=== PATIENT | female | born 1985 | race Caucasian/White ===

== ENCOUNTER 2018-10-26 10:47 | Inpatient (IN) | payer BC ==
[~2018-10-26] VITALS: Ht 157.5 cm; Wt 99.9 kg
[2018-10-26] MEDS ORDERED: PREN-93 PO (11:03)
[2018-10-26 11:04] VITALS: Ht 157.5 cm; Wt 99.9 kg
[2018-10-26] MEDS ORDERED: CALC600T24 PO (11:04)
[2018-10-26 11:05] VITALS: BP 115/57; PULSE 86; RESP 18
--- NOTE | 2018-10-26 11:25 | TRIAGE ---
OB Triage Datetime Report Generated by CPN: 10/26/2018 11:25 Datetime: 10/26/2018 11:01 Assessment Type: Triage Maternal Assessment Level of Consciousness: Fully Conscious DTR's/Clonus: DTRs 2+; No Clonus Headache: Denies Blurred Vision: No Respiratory Effort: Unlabored; Regular Rhythm; Equal Expansion Breath Sounds, Left: Clear and Equal Breath Sounds, Right: Clear and Equal Nausea/Vomiting: Denies RUQ Epigastric Pain: Denies Lower Extremities Edema: None Degree: None Upper Extremities Edema: None Degree: None Facial Edema: None Fall Risk Assessment History of Falling: (0) No Secondary Diagnosis: (0) No Ambulatory Aid: (0) Bedrest/Nurse Assist IV Therapy: (0) No Gait: (0) Normal/Bedrest/Immobile Mental Status: (0) Oriented to Own Ability Fall Score: 0 Fall Risk Score Definition: No Risk: No action required Datetime: 10/26/2018 10:59 Time of Arrival: 10/26/2018 10:42 EGA: 27.2 Arrived By: Ambulatory Arrived From: Home Chief Complaint: pt HERE C/O UC'S SINCE 0600 Movement: Present Contractions: Irregular Rupture of Membranes: Denies Vaginal Bleeding: None Vaginal Discharge: Denies Recent Sexual Intercouse: Denies Abdominal Trauma: Not Applicable Patient Complaints: Contractions; Cramping; Back Pain Time Provider Notified: 10/26/2018 11:23 Provider Notified: SALCEDA Initial Plan: EFM Datetime: 10/26/2018 10:57 Labor Evaluation Monitor Mode: External Heart Rate Monitor Mode: External US
[2018-10-26] MEDS: TERBUTALINE 1 MG/ML INJ SC PRN ×2 (11:46→13:01)
[2018-10-26] MEDS ORDERED: ACETAMINOPHEN 325 MG TAB PO PRN (12:00)
[2018-10-26] MEDS: LACTATED RINGER'S 1,000 ML IV SCH ×2 (14:07→14:09)
[2018-10-26] MEDS: DEXAMETHASONE 4 MG/ML 5 ML INJ IM SCH (14:22)
[2018-10-26] MEDS ORDERED: MAGNESIUM SULFATE 4 GM/100 ML 100 ML IVPB ONE (15:30)
[2018-10-26] MEDS: MAGNESIUM SULFATE 20 GM/500 ML 500 ML IV SCH (15:49)
[2018-10-26 19:49] VITALS: BP 114/65; RESP 18
[2018-10-27] MEDS: LACTATED RINGER'S 1,000 ML IV SCH ×2 (00:10→12:11)
[2018-10-27] MEDS: MAGNESIUM SULFATE 20 GM/500 ML 500 ML IV SCH ×2 (00:54→10:54)
[2018-10-27] MEDS ORDERED: SALINE 0.65% 45 ML NAS SPRAY NASAL PRN (01:30)
[2018-10-27] MEDS: DEXAMETHASONE 4 MG/ML 5 ML INJ IM SCH ×2 (01:58→14:14)
[2018-10-27] MEDS: AL HYDROX/MG HYDROX/SIMETH 30 ML CUP PO PRN (08:47)
[2018-10-27] MEDS: NIFEdipine (XL) 30 MG TAB PO SCH (19:35)
[2018-10-28] MEDS: DEXAMETHASONE 4 MG/ML 5 ML INJ IM SCH (02:00)
--- NOTE | 2018-10-28 07:03 | HP ---
DATE OF ADMISSION: 10/26/2018 HISTORY OF PRESENT ILLNESS: This is a 33-year-old lady, 5, para 4, with 2 spontaneous abortions. Her EDC by early ultrasound is 01/23/2019. That makes her 27 and 3/7 weeks on admission. She was admitted because of lower abdominal pains and low back pains. This patient is known to have a twin . She has been followed by the perinatologist, Dr. Magali Barr, diamniotic- dichorionic twins. PAST PERSONAL HISTORY: No history of TB, asthma. ALLERGIES: NO ALLERGIES. SOCIAL HISTORY: Patient does not smoke. She does not drink. MEDICATIONS: She does not take any drugs except her iron and vitamins. GYNECOLOGIC HISTORY: She had menarche at the age of 10, every 28 days interval, 3 to 4 days duration, and moderate in amount. FAMILY HISTORY: Mother has diabetes. OBSTETRICAL HISTORY: She is 5, para 4 with one set of twins. Her first delivery was in 2001. Normal delivery, second delivery in 2002, normal delivery. She had a set of twins in 2009 at 36 weeks. Baby weighed 5 pounds, both of them. She has 2 spontaneous abortions, 2016 at 16 weeks, 2017 at 8 weeks. REVIEW OF SYSTEMS: CARDIOVASCULAR: No chest pains. RESPIRATORY: No cough. GASTROINTESTINAL: No diarrhea, no vomiting. GENITOURINARY: No dysuria. PHYSICAL EXAMINATION: GENERAL: Reveals a conscious, coherent lady, in no acute distress. VITAL SIGNS: Her blood pressure 120/70, pulse rate 80 per minute, respirations 16 per minute. BREASTS, HEART AND LUNGS: Within normal limits. ABDOMEN: Soft, fundic height 30 cm. heart tones on both babies were normal. PELVIC: Deferred. EXTREMITIES: No pedal edema. ADMITTING DIAGNOSIS: A 27 and 3/7 weeks intrauterine with labor and twin gestation. Patient was planned to be observed in the hospital. She was planned to be given terbutaline and with contractions, with start on magnesium sulfate, and to be given dexamethasone. The plans were explained to the patient, and she understood everything totally. The risks, benefits, and alternatives were discussed with her as well. Dictated By: MORENITA DARDEN/NTS Conf#: [id number] DID#: [id number] MTDD
--- NOTE | 2018-10-28 07:07 | PN ---
DATE: 10/27/2018 SUBJECTIVE: The patient feels good, with no contractions. She had received 2 doses of terbutaline a nd she had completed a 24-hour of magnesium sulfate and she had received dexamethasone x3 doses and 4 th dose will be at 2 a.m. on 10/28/2018. Dr. Hoang was consulted and said she will come and see the patient today and so she will be kept in the hospital. OBJECTIVE: VITAL SIGNS: She is afebrile. Vital signs stable. ABDOMEN: Soft, no tenderness noted. heart tones for both babies were normal. No vaginal blee ding. EXTREMITIES: No calf tenderness. ASSESSMENT: 27 and 4/7 weeks intrauterine with twin gestation resulting labor. PLAN: Stay in the hospital until tomorrow until Dr. Hoang will see her. She will be started on Proc ardia-XL 30 mg daily. Dictated By: MORENITA CAIN MD NS/NTS Conf#: [id number] DID#: [id number] CC: MORENITA CAIN MD;*End*
--- NOTE | 2018-10-28 07:09 | PN ---
DATE: 10/28/2018 SUBJECTIVE: The patient feels good. No complaints, no contractions. She finished her last dose of dexamethasone, and magnesium sulfate had been stopped since last night, and no more contractions. OBJECTIVE VITAL SIGNS: She is afebrile. Vital signs stable. ABDOMEN: Soft. No tenderness noted. heart tones normal for both babies. EXTREMITIES: No tenderness, no vaginal bleeding. ASSESSMENT: 1. A 27 and 5/7 weeks intrauterine , twins. 2. Resolved labor. PLAN: She will go home today after being seen by Dr. Hoang. The plans were explained to the patient , and she understood everything totally. The risks, benefits, and alternatives were discussed with er as well. Dictated By: MORENITA CAIN MD NS/NTS Conf#: [id number] DID#: [id number] CC: MORENITA CAIN MD;*EndCC*
[2018-10-28] MEDS: NIFEdipine (XL) 30 MG TAB PO SCH (08:46)
[2018-10-28] MEDS: AL HYDROX/MG HYDROX/SIMETH 30 ML CUP PO PRN (10:13)
--- NOTE | 2018-10-29 00:49 | CONS ---
DATE OF ADMISSION: 10/26/2018 DATE OF CONSULTATION: 10/28/2018 HISTORY OF PRESENT ILLNESS: The patient is a 33-year-old at 27 weeks and 3 days, presented 2 days ag o with complaint of abdominal pain. She was placed on magnesium sulfate, given dexamethasone. Magne sium sulfate was stopped by her primary yesterday and was placed on Procardia XL 30 mg. She is curre ntly per report from the nurse without symptoms. Her cervical length was 3.7 cm yesterday. heart tones are reassuring. Contractions are none. ASSESSMENT: Twin intrauterine at gestational age stated above with contracti ons, status post magnesium sulfate and dexamethasone, currently on Procardia without any contractions currently. RECOMMENDATIONS: The patient can be discharged home tomorrow on 10/29/2018 if there is no evidence o f contraction and she is comfortable. We can continue her on Procardia XL as long as the blood press ures allow and please schedule with perinatology for cervical length and assessment in 1 to 2 weeks. Dictated By: NONI BREWER MD ST/NTS Conf#: [id number] DID#: [id number] CC: MORENITA CAIN MD;*EndCC*
[2018-10-29] MEDS: AL HYDROX/MG HYDROX/SIMETH 30 ML CUP PO PRN ×2 (07:33→16:17)
[2018-10-29] MEDS: NIFEdipine (XL) 30 MG TAB PO SCH (08:20)
--- NOTE | 2018-10-30 05:08 | PN ---
DATE: 10/29/2018 SUBJECTIVE: The patient feels good. No contractions. OBJECTIVE: VITAL SIGNS: She is afebrile. Vital signs stable. ABDOMEN: Soft. No tenderness noted. No contractions, no vaginal bleeding. EXTREMITIES: No calf tenderness. ASSESSMENT: Resolved labor. PLAN: Home today as suggested by Dr. Hoang to come back to her clinic for followup. Instructions gi stas to the patient. Dictated By: MORENITA DARDEN/EDIS Conf#: [id number] DID#: [id number]
--- NOTE | 2018-11-02 17:03 | DS ---
DATE OF ADMISSION: 10/26/2018 DATE OF DISCHARGE: 10/29/2018 This is a 33-year-old lady, 5, para 4, with 2 spontaneous abortions. Her EDC is 01/23/2019, at 27 and 3/7 weeks, admitted because of lower abdominal pains and low back pain. HISTORY OF PRESENT ILLNESS: See dictated history and physical. PHYSICAL EXAMINATION: See dictated history and physical. ADMITTING DIAGNOSIS: A 27-5/7 week intrauterine with labor and twin gestation. HOSPITAL COURSE: The patient was observed in the hospital. She was given terbutaline with magnesium sulfate and was given dexamethasone. She did have good hospital course. The pain had disappeared o n the third day of admission, so she was discharged home on the third day of admission on general t and activity was restricted. She was counseled. She was instructed. She was told to keep appoint ment with the perinatologist. She was discharged home in good and stable condition. FINAL DIAGNOSES: A 5/7 weeks intrauterine twin . I addressed of labor. She is 27 and 5/7 week intrauterine , twins, labor, resolved. Dictated By: MORENITA DARDEN/NTS Conf#: [id number] DID#: [id number]
== END 2018-10-29 17:10 | disposition home or self-care (01) | DRG 833 ==
LOC: OBT 10:47 → L-D 10:49 → OBT 11:22 → L-D 12:38 → PP1 10-27 17:20
PROVIDERS: ADMIT Obstetrics & Gynecology; ATTEND Obstetrics & Gynecology
DX: O60.02 Preterm labor without delivery, second trimester (principal); Z3A.27 27 weeks gestation of pregnancy; O30.002 Twin pregnancy, unspecified number of placenta and unspecified number of amniotic sacs, second trimester
CPT/HCPCS: 76815; 76817; 76818; 80053; 81001; 81003; 83735; 85025; G0463; J1100; J3105; J3475; J7120

== ENCOUNTER 2018-11-18 22:36 | Inpatient (IN) | payer BC, OTHER ==
[~2018-11-18] VITALS: Ht 157.5 cm; Wt 102.2 kg
[~2018-11-18 22:36] MED LIST: CALC600T24 PO; PREN-93 PO
[2018-11-18] MEDS ORDERED: NIFE30TA2 PO (22:58)
[2018-11-18 23:26] VITALS: BP 106/55; PULSE 90; RESP 16
[2018-11-19] MEDS ORDERED: MAGNESIUM SULFATE 4 GM/100 ML 100 ML IV ONE (02:00)
[2018-11-19] MEDS ORDERED: ONDANSETRON 4 MG INJ IV PRN (02:00)
[2018-11-19] MEDS ORDERED: ACETAMINOPHEN 325 MG TAB PO PRN (02:00)
[2018-11-19] MEDS: LACTATED RINGER'S 1,000 ML IV SCH ×3 (02:03→17:42)
[2018-11-19] MEDS: MAGNESIUM SULFATE 20 GM/500 ML 500 ML IV SCH ×3 (03:04→22:47)
--- NOTE | 2018-11-19 03:41 | TRIAGE ---
OB Triage Datetime Report Generated by CPN: 11/19/2018 03:40 Datetime: 11/19/2018 02:32 Monitor Mode: External Monitor Mode: External US Datetime: 11/18/2018 23:51 Time of Arrival: 11/18/2018 22:30 EGA: 30.4 Arrived By: Wheelchair Arrived From: Home Chief Complaint: w/ hx c/ for twins at 35 wks and present twin gestation c/o irreg u c Movement: Present Contractions: Irregular Time Contractions Began: 11/18/2018 19:00 Contractions: q15 Rupture of Membranes: Denies Vaginal Bleeding: None Vaginal Discharge: Denies Recent Sexual Intercouse: Denies Abdominal Trauma: Not Applicable Patient Complaints: Cramping Time Provider Notified: 11/18/2018 23:25 Provider Notified: Dr Woodward Initial Plan: EFM,UA,CVL,EFW,KANDICE,PO HYDRATION Datetime: 11/18/2018 23:25 Stage of : OB Triage Monitor Mode: External Quality: Mild Pattern: Normal: <= 5 Contractions in 10 Minutes Resting Tone [place]: Relaxed Datetime: 11/18/2018 23:07 Stage of : OB Triage Monitor Mode: External Duration (sec)2399: 10 Quality: Mild Pattern: Normal: <= 5 Contractions in 10 Minutes Resting Tone [place]: Relaxed Heart Rate FHR Baseline Rate: 145 Monitor Mode: External US FHR Baseline Changes: No Baseline Change Variability: Moderate 6-25 bpm Accelerations: 15X15 Decelerations: None Category: Category I Datetime: 11/18/2018 22:45 Monitor Mode: External Resting [place]: Relaxed Datetime: 11/18/2018 22:43 Stage of : OB Triage Respiratory Effort: Unlabored Heart Rate FHR Baseline Rate: 140 Monitor Mode: External US Pain Assessment Pain Scale: 4 Pain Presence: Intermittent Pain Type: Cramping Pain Location: Abdomen Datetime: 10/29/2018 14:00 Stage of : Antepartum Maternal Assessment Level of Consciousness: Fully Conscious Headache: Denies Nausea/Vomiting: Denies RUQ Epigastric Pain: Denies Labor Evaluation Frequency: 0/hr Monitor Mode: External Pain Assessment Pain Scale: 0 Pain Presence: None/Denies Vaginal Bleeding: None Datetime: 10/29/2018 13:29 Stage of : Antepartum Labor Evaluation Frequency: 0/hr Monitor Mode: External Pain Presence: None/Denies Datetime: 10/29/2018 13:25 Pain Presence: None/Denies Datetime: 10/29/2018 12:58 Pain Presence: None/Denies Datetime: 10/29/2018 11:29 Stage of : Antepartum Pain Presence: None/Denies Datetime: 10/29/2018 11:00 Stage of : Antepartum Labor Evaluation Frequency: 0/hr Monitor Mode: External Pain Presence: None/Denies Datetime: 10/29/2018 10:00 Stage of : Antepartum Labor Evaluation Frequency: 0/hr Monitor Mode: External Pain Presence: None/Denies Datetime: 10/29/2018 09:00 Pain Presence: None/Denies Datetime: 10/29/2018 07:51 Heart Rate FHR Baseline Rate: 145 Monitor Mode: External US Variability: Moderate 6-25 bpm Accelerations: 15X15 Comments: blue line Datetime: 10/29/2018 07:39 Assessment Type: Ongoing Assessment Maternal Assessment Level of Consciousness: Fully Conscious Headache: Denies Blurred Vision: No Respiratory Effort: Unlabored Nausea/Vomiting: Denies RUQ Epigastric Pain: Denies Monitor Mode: External Resting [place]: Relaxed Datetime: 10/29/2018 07:27 Stage of : Antepartum Datetime: 10/29/2018 06:20 Labor Evaluation Frequency: 0 Monitor Mode: External Resting [place]: Relaxed Pain Presence: None/Denies Datetime: 10/29/2018 05:20 Labor Evaluation Frequency: 0 Monitor Mode: External Resting [place]: Relaxed Datetime: 10/29/2018 04:20 Labor Evaluation Frequency: 0 Monitor Mode: External Resting [place]: Relaxed Datetime: 10/29/2018 03:20 Labor Evaluation Frequency: 0 Monitor Mode: External Duration (sec)2399: denies Resting [place]: Relaxed Pain Presence: None/Denies Datetime: 10/29/2018 02:20 Labor Evaluation Frequency: 0 Monitor Mode: External Duration (sec)2399: denies Resting [place]: Relaxed Pain Presence: None/Denies Datetime: 10/29/2018 01:20 Labor Evaluation Frequency: 0 Monitor Mode: External Duration (sec)2399: denies Resting [place]: Relaxed Pain Presence: None/Denies Datetime: 10/29/2018 00:20 Labor Evaluation Frequency: x2 Monitor Mode: External Duration (sec)2399: 40 Quality: Mild Resting [place]: Relaxed Pain Presence: None/Denies Datetime: 10/28/2018 23:15 Labor Evaluation Frequency: 0 Monitor Mode: External Duration (sec)2399: DENIES Resting T[place]: Relaxed Pain Presence: None/Denies Datetime: 10/28/2018 22:14 Labor Evaluation Frequency: 0 Monitor Mode: External Duration (sec)2399: DENIES Resting [place]: Relaxed Heart Rate FHR Baseline Rate: 150 Monitor Mode: External US Variability: Moderate 6-25 bpm Accelerations: 15X15 Decelerations: None Comments: NST DONE APPROPRIATED FOR GA. 27 WEEKS. Pain Presence: None/Denies Datetime: 10/28/2018 21:00 Labor Evaluation Frequency: 0 Monitor Mode: External Resting [place]: Relaxed Monitor Mode: External US Comments: STEPHANI ALEC NST STARTED Datetime: 10/28/2018 20:00 Labor Evaluation Frequency: 0 Monitor Mode: External Duration (sec)2399: DENIES Resting [place]: Relaxed Pain Presence: None/Denies Datetime: 10/28/2018 19:28 Stage of : Antepartum Assessment Type: Ongoing Assessment Maternal Assessment Level of Consciousness: Fully Conscious DTR's/Clonus: DTRs 2+; No Clonus Headache: Denies Blurred Vision: No Respiratory Effort: Unlabored; Regular Rhythm; Equal Expansion Breath Sounds, Left: Clear and Equal Breath Sounds, Right: Clear and Equal Nausea/Vomiting: Denies RUQ Epigastric Pain: Denies Lower Extremities Edema: None Degree: None Upper Extremities Edema: None Degree: None Facial Edema: None Temperature Route: Oral Fall Risk Assessment History of Falling: (0) No Secondary Diagnosis: (0) No Ambulatory Aid: (0) Bedrest/Nurse Assist IV Therapy: (0) No Gait: (0) Normal/Bedrest/Immobile Mental Status: (0) Oriented to Own Ability Fall Score: 0 Fall Risk Score Definition: No Risk: No action required Pain Presence: None/Denies Datetime: 10/28/2018 19:00 Stage of : Antepartum Maternal Assessment Level of Consciousness: Fully Conscious Headache: Denies Nausea/Vomiting: Denies RUQ Epigastric Pain: Denies Labor Evaluation Frequency: 0/hr Monitor Mode: External Pain Assessment Pain Scale: 0 Pain Presence: None/Denies Vaginal Bleeding: None Datetime: 10/28/2018 18:00 Stage of : Antepartum Maternal Assessment Level of Consciousness: Fully Conscious Headache: Denies Nausea/Vomiting: Denies RUQ Epigastric Pain: Denies Labor Evaluation Frequency: 0/hr Monitor Mode: External Pain Assessment Pain Scale: 0 Pain Presence: None/Denies Vaginal Bleeding: None Datetime: 10/28/2018 17:00 Stage of : Antepartum Maternal Assessment Level of Consciousness: Fully Conscious Headache: Denies Nausea/Vomiting: Denies RUQ Epigastric Pain: Denies Labor Evaluation Frequency: 0/hr Monitor Mode: External Pain Assessment Pain Scale: 0 Pain Presence: None/Denies Vaginal Bleeding: None Datetime: 10/28/2018 16:00 Stage of : Antepartum Maternal Assessment Level of Consciousness: Fully Conscious Headache: Denies Nausea/Vomiting: Denies RUQ Epigastric Pain: Denies Labor Evaluation Frequency: 0/hr Monitor Mode: External Pain Assessment Pain Scale: 0 Pain Presence: None/Denies Vaginal Bleeding: None Datetime: 10/28/2018 15:20 Stage of : Antepartum Maternal Assessment Level of Consciousness: Fully Conscious Headache: Denies Blurred Vision: No Respiratory Effort: Unlabored Nausea/Vomiting: Denies RUQ Epigastric Pain: Denies Temperature Route: Oral Resting [place]: Relaxed Pain Presence: None/Denies Datetime: 10/28/2018 15:00 Stage of : Antepartum Maternal Assessment Level of Consciousness: Fully Conscious Headache: Denies Nausea/Vomiting: Denies RUQ Epigastric Pain: Denies Labor Evaluation Frequency: 0/hr Monitor Mode: External Pain Assessment Pain Scale: 0 Pain Presence: None/Denies Vaginal Bleeding: None Datetime: 10/28/2018 14:00 Stage of : Antepartum Maternal Assessment Level of Consciousness: Fully Conscious Headache: Denies Nausea/Vomiting: Denies RUQ Epigastric Pain: Denies Labor Evaluation Frequency: 0/hr Monitor Mode: External Pain Assessment Pain Scale: 0 Pain Presence: None/Denies Vaginal Bleeding: None Datetime: 10/28/2018 13:21 Stage of : Antepartum Labor Evaluation Frequency: 0/hr Monitor Mode: External Resting [place]: Relaxed Pain Presence: None/Denies Datetime: 10/28/2018 12:21 Pain Presence: None/Denies Datetime: 10/28/2018 12:00 Stage of : Antepartum Maternal Assessment Level of Consciousness: Fully Conscious Headache: Denies Nausea/Vomiting: Denies RUQ Epigastric Pain: Denies Labor Evaluation Frequency: 0/hr Monitor Mode: External Pain Assessment Pain Scale: 0 Pain Presence: None/Denies Vaginal Bleeding: None Datetime: 10/28/2018 11:23 Stage of : Antepartum Datetime: 10/28/2018 11:13 Labor Evaluation Frequency: 0/hr Pain Presence: None/Denies Datetime: 10/28/2018 09:57 Stage of : Antepartum Labor Evaluation Frequency: none Monitor Mode: External Resting [place]: Relaxed Pain Presence: None/Denies Pain Type: N/A Datetime: 10/28/2018 08:44 Stage of : Antepartum Maternal Assessment Level of Consciousness: Fully Conscious Headache: Denies Nausea/Vomiting: Denies RUQ Epigastric Pain: Denies Labor Evaluation Frequency: 0/hr Monitor Mode: External Resting [place]: Relaxed Heart Rate FHR Baseline Rate: 135 Monitor Mode: External US Variability: Moderate 6-25 bpm Accelerations: 15X15 Comments: blue line ega 27.4 Pain Assessment Pain Scale: 0 Vaginal Bleeding: None Datetime: 10/28/2018 08:05 Resting Tone [place]: Relaxed Pain Presence: None/Denies Datetime: 10/28/2018 07:48 Maternal Assessment Level of Consciousness: Fully Conscious Headache: Denies Blurred Vision: No Nausea/Vomiting: Denies Monitor Mode: External Resting [place]: Relaxed Monitor Mode: External US Comments: blue line lower mid. quad Datetime: 10/28/2018 07:16 Stage of : Antepartum Pain Presence: None/Denies Datetime: 10/28/2018 06:56 Labor Evaluation Frequency: NONE Monitor Mode: External Resting [place]: Relaxed Pain Presence: None/Denies Pain Type: N/A Datetime: 10/28/2018 06:00 Maternal Assessment Level of Consciousness: Fully Conscious DTR's/Clonus: DTRs 2+; No Clonus Labor Evaluation Frequency: NONE Monitor Mode: External Resting [place]: Relaxed Contraction Comments: PT DENIES FEELING ANY UC'S Comments: pt states + fm Pain Presence: None/Denies Pain Type: N/A Datetime: 10/28/2018 05:40 Stage of : Antepartum Datetime: 10/28/2018 05:00 Labor Evaluation Frequency: none Monitor Mode: External Resting [place]: Relaxed Contraction Comments: Minimal irritability noted. Datetime: 10/28/2018 04:37 Stage of : Antepartum Temperature Route: Oral Contraction Comments: PT DENEIS CRAMPING Comments: PT STATES + FM Pain Presence: None/Denies Pain Type: N/A Pain Assessment Comments: PT STATES SHE FEELS MUCH BETTER THAN SHE DID LAST NIGHT. Vaginal Exam Membrane Status: Intact Vaginal Bleeding: None Datetime: 10/28/2018 04:00 Labor Evaluation Frequency: NONE Monitor Mode: External Resting [place]: Relaxed Contraction Comments: MINIMAL UTERINE IRRITABILITY NOTED Pain Presence: None/Denies Pain Type: N/A Pain Assessment Comments: PT REMAINS ASLEEP WITH EVEN UNLABORED BREATHING. Datetime: 10/28/2018 03:00 Labor Evaluation Frequency: NONE Monitor Mode: External Resting [place]: Relaxed Pain Presence: None/Denies Pain Type: N/A Pain Assessment Comments: PT SLEEPING WITH EVEN UNLABORED BREATHING Datetime: 10/28/2018 02:00 Stage of : Antepartum Labor Evaluation Frequency: NONE Monitor Mode: External Resting [place]: Relaxed Pain Presence: None/Denies Pain Type: N/A Pain Assessment Comments: PT DENIES ANY NEEDS AT THIS TIME Datetime: 10/28/2018 01:00 Labor Evaluation Frequency: X2 Monitor Mode: External Duration (sec)2399: 50 Quality: Mild Resting [place]: Relaxed Pain Presence: None/Denies Pain Type: N/A Pain Assessment Comments: PT SLEEPING WITH EVEN UNLABORED BREATHING Datetime: 10/28/2018 00:00 Labor Evaluation Frequency: none Monitor Mode: External Resting [place]: Relaxed Pain Presence: None/Denies Pain Type: N/A Datetime: 10/27/2018 23:19 Stage of : Antepartum Temperature Route: Oral Datetime: 10/27/2018 23:00 Stage of : Antepartum Labor Evaluation Frequency: none Monitor Mode: External Resting [place]: Relaxed Pain Assessment Pain Scale: 3 Pain Presence: Constant Pain Type: Ache Pain Location: Other Pain Assessment Comments: Pt states her whole body hurts from laying in the bed so long. Datetime: 10/27/2018 22:00 Labor Evaluation Frequency: NONE Monitor Mode: External Resting [place]: Relaxed Heart Rate FHR Baseline Rate: 140 Monitor Mode: External US Variability: Moderate 6-25 bpm Accelerations: 15X15 Decelerations: None Category: Category I Pain Presence: None/Denies Pain Type: N/A Datetime: 10/27/2018 21:55 Monitor Mode: External US Comments: REMOVED. FM CHANGED TO NST Q SHIFT Datetime: 10/27/2018 21:40 Stage of : Antepartum Datetime: 10/27/2018 21:26 Monitor Mode: External US Datetime: 10/27/2018 21:15 Stage of : Antepartum Datetime: 10/27/2018 21:00 Labor Evaluation Frequency: X1 Monitor Mode: External Duration (sec)2399: 40 Quality: Mild Resting [place]: Relaxed Heart Rate FHR Baseline Rate: 135 Monitor Mode: External US Variability: Moderate 6-25 bpm Accelerations: 15X15 Decelerations: None Category: Category I Pain Presence: None/Denies Pain Type: N/A Datetime: 10/27/2018 20:03 Stage of : Antepartum Datetime: 10/27/2018 20:00 Labor Evaluation Frequency: NONE Monitor Mode: External Resting [place]: Relaxed Heart Rate FHR Baseline Rate: 135 Monitor Mode: External US Variability: Moderate 6-25 bpm Accelerations: None Decelerations: None Category: Category I Pain Presence: None/Denies Pain Type: N/A Datetime: 10/27/2018 19:35 Stage of : Antepartum Datetime: 10/27/2018 19:33 Stage of : Antepartum Assessment Type: Ongoing Assessment Maternal Assessment Level of Consciousness: Fully Conscious DTR's/Clonus: DTRs 2+; No Clonus Headache: Denies Blurred Vision: No Respiratory Effort: Unlabored; Regular Rhythm; Equal Expansion Breath Sounds, Left: Clear and Equal Breath Sounds, Right: Clear and Equal Nausea/Vomiting: Denies RUQ Epigastric Pain: Denies Lower Extremities Edema: None Degree: None Upper Extremities Edema: None Degree: None Facial Edema: None Temperature Route: Oral Fall Risk Assessment History of Falling: (0) No Secondary Diagnosis: (0) No Ambulatory Aid: (0) Bedrest/Nurse Assist IV Therapy: (0) No Gait: (0) Normal/Bedrest/Immobile Mental Status: (0) Oriented to Own Ability Fall Score: 0 Fall Risk Score Definition: No Risk: No action required Contraction Comments: PT DENIES CRAMPING Comments: PT STATES + FM Pain Presence: None/Denies Pain Type: N/A Vaginal Exam Membrane Status: Intact Vaginal Bleeding: None Datetime: 10/27/2018 18:54 Stage of : Antepartum Labor Evaluation Frequency: 0 Monitor Mode: External Resting [place]: Relaxed Heart Rate FHR Baseline Rate: 135 Monitor Mode: External US Variability: Moderate 6-25 bpm Accelerations: 10X10 Decelerations: None Category: Category I Pain Assessment Pain Scale: 0 Pain Presence: None/Denies Pain Type: N/A Vaginal Exam Membrane Status: Intact Datetime: 10/27/2018 18:30 Labor Evaluation Frequency: 0 Monitor Mode: External Resting [place]: Relaxed Heart Rate FHR Baseline Rate: 135 Monitor Mode: External US Variability: Moderate 6-25 bpm Decelerations: None Pain Assessment Pain Scale: 0 Pain Presence: None/Denies Pain Type: N/A Datetime: 10/27/2018 18:14 Assessment Type: Ongoing Assessment Maternal Assessment Level of Consciousness: Fully Conscious DTR's/Clonus: DTRs 2+; No Clonus Headache: Denies Blurred Vision: No Respiratory Effort: Unlabored; Regular Rhythm; Equal Expansion Breath Sounds, Left: Clear and Equal Breath Sounds, Right: Clear and Equal Nausea/Vomiting: Denies RUQ Epigastric Pain: Denies Facial Edema: None Fall Risk Assessment History of Falling: (0) No Secondary Diagnosis: (0) No Ambulatory Aid: (0) Bedrest/Nurse Assist Gait: (0) Normal/Bedrest/Immobile Mental Status: (0) Oriented to Own Ability Datetime: 10/27/2018 17:30 Stage of : Antepartum Datetime: 10/27/2018 17:20 Stage of : Antepartum Datetime: 10/27/2018 16:30 Labor Evaluation Frequency: x1 Monitor Mode: External Duration (sec)2399: 50 Quality: Mild Pattern: Normal: <= 5 Contractions in 10 Minutes Resting Tone [place]: Relaxed Heart Rate FHR Baseline Rate: 145 Monitor Mode: External US Variability: Moderate 6-25 bpm Accelerations: 10X10 Decelerations: None Pain Assessment Pain Scale: 0 Pain Presence: None/Denies Pain Type: N/A Pain Goal: 3 Pain Relief Measures: Comfort Measures Datetime: 10/27/2018 15:30 Labor Evaluation Frequency: 0 Monitor Mode: External Pattern: Normal: <= 5 Contractions in 10 Minutes Resting [place]: Relaxed Heart Rate FHR Baseline Rate: 140 Monitor Mode: External US Variability: Moderate 6-25 bpm Accelerations: 10X10 Decelerations: None Pain Assessment Pain Scale: 0 Pain Presence: None/Denies Pain Type: N/A Pain Goal: 3 Pain Relief Measures: Comfort Measures Datetime: 10/27/2018 15:16 Monitor Mode: External US Datetime: 10/27/2018 15:11 Monitor Mode: External Datetime: 10/27/2018 15:04 Monitor Mode: External US Datetime: 10/27/2018 14:30 Labor Evaluation Frequency: 0 Monitor Mode: External Pattern: Normal: <= 5 Contractions in 10 Minutes Resting [place]one [place]: Relaxed Heart Rate FHR Baseline Rate: 140 Monitor Mode: External US Variability: Moderate 6-25 bpm Accelerations: 10X10 Decelerations: None Pain Assessment Pain Scale: 0 Pain Presence: None/Denies Pain Type: N/A Pain Goal: 3 Pain Relief Measures: Comfort Measures Datetime: 10/27/2018 13:30 Labor Evaluation Frequency: 0 Monitor Mode: External Pattern: Normal: <= 5 Contractions in 10 Minutes Resting [place]one [place]: Relaxed Heart Rate FHR Baseline Rate: 145 Monitor Mode: External US Variability: Moderate 6-25 bpm Accelerations: 10X10 Decelerations: None Category: Category I Pain Assessment Pain Scale: 0 Pain Presence: None/Denies Pain Type: N/A Pain Goal: 3 Pain Relief Measures: Comfort Measures Datetime: 10/27/2018 12:31 Labor Evaluation Frequency: 0 Monitor Mode: External Pattern: Normal: <= 5 Contractions in 10 Minutes Resting [place]one [place]: Relaxed Heart Rate FHR Baseline Rate: 145 Monitor Mode: External US FHR Baseline Changes: No Baseline Change Variability: Moderate 6-25 bpm Accelerations: None Decelerations: None Category: Category I Pain Assessment Pain Scale: 0 Pain Presence: None/Denies Pain Type: N/A Pain Goal: 3 Pain Relief Measures: Comfort Measures Datetime: 10/27/2018 11:57 Stage of : Antepartum Datetime: 10/27/2018 11:49 Stage of : Antepartum Datetime: 10/27/2018 11:34 Labor Evaluation Frequency: X1 Monitor Mode: External Duration (sec)2399: 50 Quality: Mild Pattern: Normal: <= 5 Contractions in 10 Minutes Resting [place]one [place]: Relaxed Heart Rate FHR Baseline Rate: 145 Monitor Mode: External US Variability: Moderate 6-25 bpm Accelerations: 10X10 Decelerations: None Category: Category I Pain Assessment Pain Scale: 0 Pain Presence: None/Denies Pain Type: N/A Pain Goal: 3 Pain Relief Measures: Comfort Measures Datetime: 10/27/2018 10:32 Labor Evaluation Frequency: X1 Monitor Mode: External Duration (sec)2399: 40 Quality: Mild Pattern: Normal: <= 5 Contractions in 10 Minutes Resting [place]one [place]: Relaxed Heart Rate FHR Baseline Rate: 140 Monitor Mode: External US Variability: Moderate 6-25 bpm Accelerations: 10X10 Decelerations: None Category: Category I Pain Assessment Pain Scale: 0 Pain Presence: None/Denies Pain Type: N/A Pain Goal: 3 Pain Relief Measures: Comfort Measures Datetime: 10/27/2018 09:34 Maternal Assessment Level of Consciousness: Fully Conscious DTR's/Clonus: DTRs Absent Headache: Denies Blurred Vision: No Breath Sounds, Left: Clear and Equal Breath Sounds, Right: Clear and Equal Nausea/Vomiting: Denies RUQ Epigastric Pain: Denies Heart Rate FHR Baseline Rate: 145 Monitor Mode: External US Variability: Moderate 6-25 bpm Decelerations: None Category: Category I Pain Assessment Pain Scale: 0 Pain Presence: None/Denies Pain Type: N/A Pain Goal: 3 Datetime: 10/27/2018 08:54 Stage of : Antepartum Datetime: 10/27/2018 07:39 Stage of : Antepartum Maternal Assessment Level of Consciousness: Fully Conscious DTR's/Clonus: DTRs 1+ Headache: Denies Breath Sounds, Left: Clear and Equal Breath Sounds, Right: Clear and Equal Nausea/Vomiting: Denies RUQ Epigastric Pain: Denies Temperature Route: Oral Labor Evaluation Frequency: 0 Monitor Mode: External Pattern: Normal: <= 5 Contractions in 10 Minutes Resting [place]: Relaxed Heart Rate FHR Baseline Rate: 140 Monitor Mode: External US Variability: Moderate 6-25 bpm Accelerations: 10X10 Decelerations: None Category: Category I Pain Assessment Pain Scale: 3 Pain Presence: Intermittent Pain Type: Cramping Pain Location: Perineum Pain Goal: 1 Pain Relief Measures: Comfort Measures Datetime: 10/27/2018 07:36 Assessment Type: Ongoing Assessment Maternal Assessment Level of Consciousness: Fully Conscious DTR's/Clonus: DTRs 2+; No Clonus Headache: Denies Blurred Vision: No Respiratory Effort: Unlabored; Regular Rhythm; Equal Expansion Breath Sounds, Left: Clear and Equal Breath Sounds, Right: Clear and Equal Nausea/Vomiting: Denies RUQ Epigastric Pain: Denies Facial Edema: None Fall Risk Assessment History of Falling: (0) No Secondary Diagnosis: (0) No Ambulatory Aid: (0) Bedrest/Nurse Assist IV Therapy: (0) No Gait: (0) Normal/Bedrest/Immobile Mental Status: (0) Oriented to Own Ability Fall Score: 0 Fall Risk Score Definition: No Risk: No action required Datetime: 10/27/2018 07:29 Stage of : Antepartum Labor Evaluation Frequency: 0 Monitor Mode: External Duration (sec)2399: 0 Resting [place]: Relaxed Heart Rate FHR Baseline Rate: 135 Monitor Mode: External US FHR Baseline Changes: No Baseline Change Variability: Moderate 6-25 bpm Accelerations: 15X15 Decelerations: None Category: Category I Pain Presence: None/Denies Pain Type: N/A Vaginal Exam Membrane Status: Intact Datetime: 10/27/2018 06:12 Stage of : Antepartum Maternal Assessment Level of Consciousness: Fully Conscious Headache: Denies Blurred Vision: No Respiratory Effort: Unlabored Breath Sounds, Left: Clear and Equal Breath Sounds, Right: Clear and Equal Nausea/Vomiting: Denies RUQ Epigastric Pain: Denies Labor Evaluation Frequency: 0 Monitor Mode: Internal Duration (sec)2399: 0 Resting [place]: Relaxed Heart Rate FHR Baseline Rate: 135 Monitor Mode: External US FHR Baseline Changes: No Baseline Change Variability: Moderate 6-25 bpm Accelerations: 10X10 Decelerations: None Category: Category I Pain Presence: None/Denies Pain Type: N/A Vaginal Exam Membrane Status: Intact Datetime: 10/27/2018 04:46 Stage of : Labor Maternal Assessment Level of Consciousness: Fully Conscious Breath Sounds, Right: Clear and Equal Labor Evaluation Frequency: 0 Monitor Mode: External Duration (sec)2399: 0 Pattern: Normal: <= 5 Contractions in 10 Minutes Resting [place]: Relaxed Heart Rate FHR Baseline Rate: 135 Monitor Mode: External US FHR Baseline Changes: No Baseline Change Variability: Moderate 6-25 bpm Accelerations: 10X10 Decelerations: None Category: Category I Pain Assessment Pain Scale: 0 Pain Presence: None/Denies Pain Type: N/A Vaginal Exam Membrane Status: Intact Datetime: 10/27/2018 04:00 Stage of : Antepartum Breath Sounds, Right: Clear and Equal Labor Evaluation Frequency: 0 Monitor Mode: External Duration (sec)2399: 0 Pattern: Normal: <= 5 Contractions in 10 Minutes Resting [place]: Relaxed Heart Rate FHR Baseline Rate: 135 FHR Baseline Changes: No Baseline Change Variability: Moderate 6-25 bpm Accelerations: 10X10 Decelerations: None Category: Category I Vaginal Exam Membrane Status: Intact Datetime: 10/27/2018 03:32 Stage of : Antepartum Headache: Denies Blurred Vision: No Respiratory Effort: Unlabored Breath Sounds, Left: Clear and Equal Breath Sounds, Right: Clear and Equal Nausea/Vomiting: Denies Labor Evaluation Frequency: 0 Monitor Mode: External Duration (sec)2399: 0 Resting Tone [place]: Relaxed Heart Rate FHR Baseline Rate: 135 Monitor Mode: External US FHR Baseline Changes: No Baseline Change Variability: Moderate 6-25 bpm Accelerations: 10X10 Decelerations: None Category: Category I Pain Presence: None/Denies Pain Type: N/A Vaginal Exam Membrane Status: Intact Datetime: 10/27/2018 02:03 Stage of : Antepartum Headache: Denies Blurred Vision: No Nausea/Vomiting: Denies Labor Evaluation Frequency: 0 Monitor Mode: External Duration (sec)2399: 0 Resting Tone [place]: Relaxed Interventions: Side to Side Heart Rate FHR Baseline Rate: 135 Monitor Mode: External US FHR Baseline Changes: No Baseline Change Variability: Moderate 6-25 bpm Accelerations: 15X15 Decelerations: None Category: Category I Pain Assessment Pain Scale: 0 Pain Presence: None/Denies Pain Type: N/A Pain Relief Measures: Epidural Given Vaginal Exam Membrane Status: Intact Datetime: 10/27/2018 00:46 Stage of : Antepartum Maternal Assessment Level of Consciousness: Fully Conscious Headache: Denies Respiratory Effort: Unlabored Breath Sounds, Left: Clear and Equal Breath Sounds, Right: Clear and Equal Nausea/Vomiting: Denies RUQ Epigastric Pain: Denies Labor Evaluation Frequency: 0 Monitor Mode: External Duration (sec)2399: 0 Pattern: Normal: <= 5 Contractions in 10 Minutes Resting Tone [place]: Relaxed Heart Rate FHR Baseline Rate: 140 Monitor Mode: External US FHR Baseline Changes: No Baseline Change Variability: Moderate 6-25 bpm Accelerations: 10X10 Decelerations: None Category: Category I Pain Assessment Pain Scale: 0 Pain Presence: None/Denies Pain Type: N/A Vaginal Exam Membrane Status: Intact Datetime: 10/27/2018 00:13 Monitor Mode: External Monitor Mode: External US Datetime: 10/27/2018 00:04 Stage of : Antepartum Maternal Assessment Level of Consciousness: Fully Conscious DTR's/Clonus: DTRs 2+; No Clonus Headache: Denies Breath Sounds, Left: Clear and Equal Breath Sounds, Right: Clear and Equal Nausea/Vomiting: Denies RUQ Epigastric Pain: Denies Temperature Route: Axillary Datetime: 10/26/2018 23:09 Stage of : Antepartum Maternal Assessment Level of Consciousness: Fully Conscious Headache: Denies Blurred Vision: No Respiratory Effort: Unlabored Breath Sounds, Left: Clear and Equal Breath Sounds, Right: Clear and Equal Nausea/Vomiting: Denies RUQ Epigastric Pain: Denies Labor Evaluation Frequency: 0 Monitor Mode: External Duration (sec)2399: 0 Pattern: Normal: <= 5 Contractions in 10 Minutes Resting Tone [place]: Relaxed Heart Rate FHR Baseline Rate: 145 Monitor Mode: External US FHR Baseline Changes: No Baseline Change Variability: Moderate 6-25 bpm Accelerations: 10X10 Decelerations: None Category: Category I Pain Assessment Pain Scale: 0 Pain Presence: None/Denies Pain Type: N/A Datetime: 10/26/2018 22:18 Stage of : Antepartum Maternal Assessment Level of Consciousness: Fully Conscious DTR's/Clonus: DTRs 2+; No Clonus Headache: Denies Breath Sounds, Left: Clear and Equal Breath Sounds, Right: Clear and Equal Nausea/Vomiting: Denies RUQ Epigastric Pain: Denies Temperature Route: Axillary Labor Evaluation Frequency: 0 Monitor Mode: External Duration (sec)2399: 0 Pain Assessment Pain Scale: 0 Pain Presence: None/Denies Datetime: 10/26/2018 21:10 Stage of : Antepartum Maternal Assessment Level of Consciousness: Fully Conscious Respiratory Effort: Unlabored Breath Sounds, Left: Clear and Equal Breath Sounds, Right: Clear and Equal Labor Evaluation Frequency: 0 Monitor Mode: External Duration (sec)2399: 0 Pattern: Normal: <= 5 Contractions in 10 Minutes Resting Tone [place]: Relaxed Heart Rate FHR Baseline Rate: 140 Monitor Mode: External US FHR Baseline Changes: No Baseline Change Variability: Moderate 6-25 bpm Accelerations: 10X10 Decelerations: None Category: Category I Comments: COTTON STOCKING APPLIED TO PT ABDOMEN INSTEAD OF BELTS TO MONITOR Pain Assessment Pain Scale: 0 Pain Presence: None/Denies Pain Type: N/A Pain Goal: 2 Vaginal Exam Membrane Status: Intact Datetime: 10/26/2018 19:50 Stage of : Antepartum Maternal Assessment Level of Consciousness: Fully Conscious DTR's/Clonus: DTRs 2+ Headache: Denies Blurred Vision: No Respiratory Effort: Unlabored Breath Sounds, Left: Clear and Equal Breath Sounds, Right: Clear and Equal Nausea/Vomiting: Denies RUQ Epigastric Pain: Denies Labor Evaluation Frequency: 0 Monitor Mode: External Duration (sec)2399: 0 Pattern: Normal: <= 5 Contractions in 10 Minutes Resting Tone [place]: Relaxed Heart Rate FHR Baseline Rate: 145 Monitor Mode: External US FHR Baseline Changes: No Baseline Change Variability: Moderate 6-25 bpm Accelerations: 10X10 Decelerations: None Category: Category I Pain Assessment Pain Scale: 0 Pain Presence: None/Denies Pain Type: N/A Vaginal Exam Membrane Status: Intact Datetime: 10/26/2018 19:02 Labor Evaluation Frequency: Uterine irritability Monitor Mode: External Quality: Mild Pattern: Normal: <= 5 Contractions in 10 Minutes Resting Tone [place]: Relaxed Heart Rate FHR Baseline Rate: 140 Monitor Mode: External US FHR Baseline Changes: No Baseline Change Variability: Moderate 6-25 bpm Accelerations: 15X15 Decelerations: None Comments: Appropriate for GA Pain Presence: None/Denies Datetime: 10/26/2018 18:37 DTR's/Clonus: DTRs 2+ Labor Evaluation Frequency: Uterine irritability noted Monitor Mode: External Quality: Mild Pattern: Normal: <= 5 Contractions in 10 Minutes Resting Tone [place]: Relaxed Heart Rate FHR Baseline Rate: 140 Monitor Mode: External US FHR Baseline Changes: No Baseline Change Variability: Moderate 6-25 bpm Accelerations: 15X15 Decelerations: None Comments: Appropriate for GA Pain Presence: None/Denies Datetime: 10/26/2018 17:46 Labor Evaluation Frequency: Uterine irritability noted Monitor Mode: External Quality: Mild Pattern: Normal: <= 5 Contractions in 10 Minutes Resting Tone [place]: Relaxed Heart Rate FHR Baseline Rate: 140 Monitor Mode: External US FHR Baseline Changes: No Baseline Change Variability: Moderate 6-25 bpm Accelerations: 15X15 Decelerations: None Comments: Appropriate for GA Pain Presence: None/Denies Datetime: 10/26/2018 16:40 Maternal Assessment Level of Consciousness: Fully Conscious DTR's/Clonus: DTRs 2+ Breath Sounds, Left: Clear and Equal Breath Sounds, Right: Clear and Equal Labor Evaluation Frequency: Some uterine irritability Monitor Mode: External Quality: Mild Pattern: Normal: <= 5 Contractions in 10 Minutes Resting Tone [place]: Relaxed Heart Rate FHR Baseline Rate: 155 Monitor Mode: External US FHR Baseline Changes: No Baseline Change Variability: Minimal - Undetectable to <=5 bpm Accelerations: 15X15 Decelerations: None Comments: Appropriate for GA Pain Presence: None/Denies Datetime: 10/26/2018 15:40 Labor Evaluation Frequency: Uterine irritability noted Monitor Mode: External Quality: Mild Pattern: Normal: <= 5 Contractions in 10 Minutes Resting Tone [place]: Relaxed Heart Rate FHR Baseline Rate: 155 Monitor Mode: External US FHR Baseline Changes: No Baseline Change Variability: Moderate 6-25 bpm Accelerations: 15X15 Decelerations: None Comments: Appropriate for GA Pain Presence: None/Denies Datetime: 10/26/2018 15:00 Labor Evaluation Frequency: Uterine irritability noted Monitor Mode: External Quality: Mild Pattern: Normal: <= 5 Contractions in 10 Minutes Resting Tone [place]: Relaxed Heart Rate FHR Baseline Rate: 155 Monitor Mode: External US FHR Baseline Changes: No Baseline Change Variability: Minimal - Undetectable to <=5 bpm Accelerations: 15X15 Decelerations: Variable Comments: Appropriate for GA Pain Presence: None/Denies Datetime: 10/26/2018 14:00 Labor Evaluation Frequency: Some uterine irritability noted Monitor Mode: External Quality: Mild Pattern: Normal: <= 5 Contractions in 10 Minutes Resting Tone [place]: Relaxed Heart Rate FHR Baseline Rate: 150 Monitor Mode: External US FHR Baseline Changes: No Baseline Change Variability: Moderate 6-25 bpm Accelerations: 15X15 Decelerations: Variable Comments: Appropriate for GA Pain Presence: None/Denies Datetime: 10/26/2018 13:00 Labor Evaluation Frequency: Uterine irritability noted Monitor Mode: External Quality: Mild Pattern: Normal: <= 5 Contractions in 10 Minutes Resting Tone [place]: Relaxed Heart Rate FHR Baseline Rate: 150 Monitor Mode: External US FHR Baseline Changes: No Baseline Change Variability: Moderate 6-25 bpm Accelerations: 15X15 Decelerations: None Comments: Appropriate for [place] Pain Presence: None/Denies Pain Assessment Comments: Pt states after IV started, she had no more pain, just feels some pressur e on R side of her mid- back Datetime: 10/26/2018 12:48 Assessment Type: Admission Assessment Vaginal Bleeding: None Maternal Assessment Level of Consciousness: Fully Conscious DTR's/Clonus: DTRs 2+; No Clonus Headache: Denies Blurred Vision: No Respiratory Effort: Unlabored; Regular Rhythm; Equal Expansion Breath Sounds, Left: Clear and Equal Breath Sounds, Right: Clear and Equal Nausea/Vomiting: Denies RUQ Epigastric Pain: Denies Lower Extremities Edema: Bilateral Lower Extremities Degree: Trace Upper Extremities Edema: None Degree: None Facial Edema: None Fall Risk Assessment History of Falling: (0) No Secondary Diagnosis: (0) No Ambulatory Aid: (0) Bedrest/Nurse Assist IV Therapy: (20) Yes Gait: (0) Normal/Bedrest/Immobile Mental Status: (0) Oriented to Own Ability Fall Score: 20 Fall Risk Score Definition: No Risk: No action required Pain Assessment Pain Scale: 0 Pain Presence: None/Denies Vaginal Exam Membrane Status: Intact Datetime: 10/26/2018 12:00 Labor Evaluation Frequency: 2-4 Monitor Mode: External Duration (sec)2399: 60-80 Quality: Mild Pattern: Normal: <= 5 Contractions in 10 Minutes Resting Tone [place]: Relaxed Heart Rate FHR Baseline Rate: 145 Monitor Mode: External US FHR Baseline Changes: No Baseline Change Variability: Moderate 6-25 bpm Accelerations: 15X15 Decelerations: None Comments: Appropriate for GA Pain Assessment Pain Scale: 7 Pain Presence: Intermittent Pain Type: Ache Pain Location: Abdomen; Back Pain Goal: 2 Pain Relief Measures: Comfort Measures Datetime: 10/26/2018 11:37 Stage of : Antepartum Datetime: 10/26/2018 11:01 Fall Score: 0 Fall Risk Score Definition: No Risk: No action required Datetime: 10/26/2018 11:00 Time of Arrival: 10/26/2018 11:00 EGA: 27.2 Arrived By: Ambulatory Arrived From: OB Triage Datetime: 10/26/2018 10:59 EGA: 27.2
[2018-11-19] MEDS: DEXAMETHASONE 4 MG/ML 5 ML INJ IM SCH ×2 (10:53→22:48)
[2018-11-19] MEDS: FERROUS SULFATE (EC) 325 MG TAB PO SCH (10:59)
[2018-11-19] MEDS: PRENATAL VITAMIN PO SCH (10:59)
[2018-11-20] MEDS: LACTATED RINGER'S 1,000 ML IV SCH ×3 (01:44→19:00)
--- NOTE | 2018-11-20 03:35 | CONS ---
DATE OF ADMISSION: 11/19/2018 DATE OF CONSULTATION: 11/19/2018 PERINATOLOGY CONSULTATION HISTORY OF PRESENT ILLNESS: The patient is twin intrauterine at 30 weeks and 5 days, prese nted with contractions. Cervical length is 3.2 cm. This is the second admission for contractions. Last visit was in the mid October. Currently, she is on magnesium sulfate and she feels much more c omfortable. Receiving again dexamethasone. OBSTETRICAL HISTORY: Significant for prior twin with the same trouble of being admitted fo r contractions and labor. PHYSICAL EXAMINATION: VITAL SIGNS: Stable. Physical exam is deferred. heart tones reassuring for gestational age. Contractions very infrequent but there is irritabi lity. IMPRESSION: Twin intrauterine at 30 weeks and 5 days with contractions, on magnesi um sulfate, receiving dexamethasone rescue. Feels more comfortable. This is the second admission. RECOMMENDATIONS: In-house management at least until Saturday when she finishes her dexamethasone. Aft er that, we will review her case and assess whether she should be discharged or stay in-house. Dictated By: NONI TORRES/EDIS Conf#: [id number] DID#: [id number]
[2018-11-20] MEDS: FERROUS SULFATE (EC) 325 MG TAB PO SCH (09:22)
[2018-11-20] MEDS: PRENATAL VITAMIN PO SCH (09:22)
[2018-11-20] MEDS: MAGNESIUM SULFATE 20 GM/500 ML 500 ML IV SCH ×2 (09:25→19:25)
[2018-11-20] MEDS: DEXAMETHASONE 4 MG/ML 5 ML INJ IM SCH ×2 (11:17→23:40)
[2018-11-21] MEDS: LACTATED RINGER'S 1,000 ML IV SCH ×3 (05:06→16:40)
[2018-11-21] MEDS: MAGNESIUM SULFATE 20 GM/500 ML 500 ML IV SCH ×2 (06:06→14:57)
[2018-11-21] MEDS: FERROUS SULFATE (EC) 325 MG TAB PO SCH (08:45)
[2018-11-21] MEDS: PRENATAL VITAMIN PO SCH (08:45)
[2018-11-21] MEDS: AL HYDROX/MG HYDROX/SIMETH 30 ML CUP PO PRN (16:40)
[2018-11-22] MEDS: PRENATAL VITAMIN PO SCH (09:51)
[2018-11-22] MEDS: FERROUS SULFATE (EC) 325 MG TAB PO SCH (09:51)
[2018-11-22] MEDS: AL HYDROX/MG HYDROX/SIMETH 30 ML CUP PO PRN ×2 (11:35→17:39)
--- NOTE | 2018-11-23 07:17 | PREOPHP ---
DATE OF ADMISSION: 11/19/2018 HISTORY OF PRESENT ILLNESS: This is a 33-year-old lady, 5, para 4, with 2 spontaneous aborti ons, her EDC 01/23/2019, at 30-4/7 weeks, admitted to labor and delivery area because of lower abdomi nal pains and low back pains. She had care in my [place] office and the care was c omplicated by labor. She had been admitted 2 weeks ago for the same problem. She is known t o have dichorionic diamniotic twins. Two weeks ago she received 2 of 4 doses of dexamethasone. She was on magnesium sulfate as well. At this time, she was admitted for the same problem. PAST PERSONAL HISTORY: No history of TB, asthma. ALLERGIES: No allergies. SOCIAL HISTORY: Patient does not smoke. She does not drink. MEDICATIONS: Does not take any drugs except her iron and vitamins and is presently on aspirin. GYNECOLOGIC HISTORY: She had menarche at the age of 10, every 28 days interval, 3 to 4 days duration , and moderate in amount. FAMILY HISTORY: Mother has diabetes. She is 5, para 4, her first delivery was 2001, normal delivery, 2002 by normal delivery, thi rd 2009 by and had twins. She had 2 spontaneous abortions in 2015 and 2016. In 2015 she w as 6 weeks. In 2017 she was 8 weeks. REVIEW OF SYSTEMS: CARDIOVASCULAR: No chest pains. RESPIRATORY: No cough. GASTROINTESTINAL: No diarrhea, no vomiting. GENITOURINARY: No dysuria. PHYSICAL EXAMINATION: GENERAL: Reveals a conscious, coherent lady and in no acute distress. VITAL SIGNS: Her blood pressure 130/80, pulse rate 80 per minute, respirations 16 per minute. BREASTS, HEART AND LUNGS: Within normal limits. ABDOMEN: Soft, fundic height 34 cm. heart tones normal for both babies. PELVIC: Revealed the cervix to be closed. EXTREMITIES: No pedal edema. ADMITTING DIAGNOSIS: 30-4/7 weeks intrauterine twins, with labor. PLAN: The patient was planned to be observed in the hospital. She was given IV hydration and Dr. Colt brooks was consulted and she advised the patient to be given dexamethasone plus magnesium sulfate, so sh e was given. She was ordered dexamethasone 4 doses and to be given magnesium sulfate at least up unt il 24 hours after the last dose of dexamethasone. The plans were explained to the patient and she un derstood everything totally. The risks, benefits and alternatives were discussed with her as well. Dictated By: MORENITA CAIN MD NS/NTS Conf#: [id number] DID#: [id number] CC: MORENITA CAIN MD;*End*
--- NOTE | 2018-11-23 07:21 | PN ---
DATE: 11/20/2018 TIME OF PROGRESS NOTE: 9:30 a.m. SUBJECTIVE: The patient feels better. She is still with on and off contractions. She is having goo d bowel movement. She is having good urine output. OBJECTIVE: VITAL SIGNS: She is afebrile. Vital signs stable. ABDOMEN: Soft, no tenderness noted. No vaginal bleeding. EXTREMITIES: No calf tenderness. ASSESSMENT: 30-5/7 weeks' intrauterine , twin with labor. PLAN: Continue with the present management. Plans were explained to the patient and she understood everything totally. Dictated By: MORENITA CAIN MD NS/NTS Conf#: [id number] DID#: [id number] CC: MORENITA CAIN MD;*EndCC*
--- NOTE | 2018-11-23 07:24 | PN ---
DATE: 11/21/2018 TIME OF PROGRESS NOTE: 4:00 p.m. SUBJECTIVE: The patient feels good, does not have any contraction, good bowel movement and good urin e output. OBJECTIVE VITAL SIGNS: She is afebrile. Vital signs stable. ABDOMEN: Soft. No tenderness noted. heart tones normal for both babies. No vaginal bleeding . EXTREMITIES: No calf tenderness. ASSESSMENT: 30-6/7 week's intrauterine twin , resolving labor. PLAN: To be kept in the hospital for at least [address] Hoang's advice and betamethasone. The 4 doses were finished and magnesium sulfate was discontinued 24 hours after the last dose of betameth asone. The plans were explained to the patient and she understood everything totally. Dictated By: MORENITA CAIN MD NS/NTS Conf#: [id number] DID#: [id number] CC: MORENITA CAIN MD;*EndCC*
--- NOTE | 2018-11-23 07:27 | PN ---
DATE: 11/22/2018 TIME OF PROGRESS NOTE: 3:10 p.m. SUBJECTIVE: The patient feels good and comfortable enough that she does not have any pain at all. OBJECTIVE: VITAL SIGNS: She is afebrile. Vital signs stable. ABDOMEN: Soft. heart tones normal for both babies. No vaginal bleeding. EXTREMITIES: No calf tenderness. ASSESSMENT: A 31-week intrauterine , twins, with resolving labor. PLAN: To be kept as mentioned yesterday for a week as per Dr. Hoang's order, to be put on bed rest i n the hospital except when she goes to the bathroom. Dictated By: MORENITA CAIN MD NS/NTS Conf#: [id number] DID#: [id number] CC: MORENITA CAIN MD;*EndCC*
[2018-11-23] MEDS: PRENATAL VITAMIN PO SCH (09:07)
[2018-11-23] MEDS: FERROUS SULFATE (EC) 325 MG TAB PO SCH (09:07)
[2018-11-23] MEDS: AL HYDROX/MG HYDROX/SIMETH 30 ML CUP PO PRN ×2 (11:05→17:52)
[2018-11-23] MEDS ORDERED: DOCUSATE SODIUM 100 MG CAP PO PRN (14:00)
[2018-11-24] MEDS: AL HYDROX/MG HYDROX/SIMETH 30 ML CUP PO PRN ×2 (01:19→16:20)
[2018-11-24] MEDS: FERROUS SULFATE (EC) 325 MG TAB PO SCH (08:29)
[2018-11-24] MEDS: PRENATAL VITAMIN PO SCH (08:29)
[2018-11-25] MEDS: FERROUS SULFATE (EC) 325 MG TAB PO SCH (09:06)
[2018-11-25] MEDS: PRENATAL VITAMIN PO SCH (09:06)
[2018-11-25] MEDS: AL HYDROX/MG HYDROX/SIMETH 30 ML CUP PO PRN ×2 (11:19→17:40)
[2018-11-26] MEDS: PRENATAL VITAMIN PO SCH (08:58)
[2018-11-26] MEDS: FERROUS SULFATE (EC) 325 MG TAB PO SCH (08:58)
[2018-11-26] MEDS: AL HYDROX/MG HYDROX/SIMETH 30 ML CUP PO PRN ×2 (13:25→21:21)
[2018-11-27] MEDS: FERROUS SULFATE (EC) 325 MG TAB PO SCH (09:00)
[2018-11-27] MEDS: PRENATAL VITAMIN PO SCH (09:00)
[2018-11-27] MEDS: AL HYDROX/MG HYDROX/SIMETH 30 ML CUP PO PRN (11:17)
[2018-11-28] MEDS: FERROUS SULFATE (EC) 325 MG TAB PO SCH (09:13)
[2018-11-28] MEDS: PRENATAL VITAMIN PO SCH (09:14)
[2018-11-29] MEDS: FERROUS SULFATE (EC) 325 MG TAB PO SCH (09:36)
[2018-11-29] MEDS: PRENATAL VITAMIN PO SCH (09:36)
[2018-11-29] MEDS: AL HYDROX/MG HYDROX/SIMETH 30 ML CUP PO PRN (21:12)
[2018-11-30] MEDS: PRENATAL VITAMIN PO SCH (09:04)
[2018-11-30] MEDS: FERROUS SULFATE (EC) 325 MG TAB PO SCH (09:04)
[2018-11-30] MEDS: AL HYDROX/MG HYDROX/SIMETH 30 ML CUP PO PRN (20:36)
[2018-12-01] MEDS: PRENATAL VITAMIN PO SCH (08:36)
[2018-12-01] MEDS: FERROUS SULFATE (EC) 325 MG TAB PO SCH (08:36)
--- NOTE | 2018-12-01 15:01 | PN ---
DATE: 11/23/2018 SUBJECTIVE: The patient feels good. No pain. Good bowel movement. Good urine output. OBJECTIVE: VITAL SIGNS: She is afebrile. Vital signs are stable. ABDOMEN: Soft. No tenderness noted. Fundic height is 33 cm. heart tones are normal for both babies. No vaginal discharge. EXTREMITIES: No calf tenderness. ASSESSMENT: A 31 and 1/7 weeks' intrauterine , twins with resolving labor. PLAN: Continue with bed rest per Dr. Hoang. Dictated By: MORENITA DARDEN/EDIS Conf#: [id number] DID#: [id number]
--- NOTE | 2018-12-01 15:15 | PN ---
DATE: 11/24/2018 SUBJECTIVE: The patient does not have any complaints. She is tolerating food and no pains at all. OBJECTIVE: VITAL SIGNS: She is afebrile. Vital signs are stable. ABDOMEN: Soft. Fundic height is 33 cm. heart tones are normal for both babies. No vaginal b leeding. No discharge. EXTREMITIES: No calf tenderness. ASSESSMENT: A 31 and 2/7 weeks' intrauterine , twins with resolving labor. PLAN: To continue with bed rest. The plans were explained to the patient and she understood everyth ing totally. Dictated By: MORENITA DARDEN/NTS Conf#: [id number] DID#: [id number]
--- NOTE | 2018-12-01 15:20 | PN ---
DATE: 11/25/2018 SUBJECTIVE: The patient feels good. No complaints, no contractions. OBJECTIVE VITAL SIGNS: She is afebrile. Vital signs stable. ABDOMEN: Soft, fundic height 35 cm. heart tones normal for both babies. No vaginal bleeding. EXTREMITIES: No calf tenderness. ASSESSMENT: 31 and 3/7 weeks, twin with a resulting labor. PLAN: Continue with bed rest, except with bathroom privileges per Dr. Hoang. Dictated By: MORENITA CAIN MD NS/NTS Conf#: [id number] DID#: [id number] CC: MORENITA CAIN MD;*EndCC*
--- NOTE | 2018-12-01 15:20 | PN ---
DATE: 11/26/2018 SUBJECTIVE: The patient feels good. No complaints, no contractions. OBJECTIVE: VITAL SIGNS: She is afebrile. Vital signs are stable. ABDOMEN: Soft. heart tones are normal for both babies. EXTREMITIES: No pedal edema. No vaginal bleeding. ASSESSMENT: A 31 and 4/7 weeks' twin with resolving labor. PLAN: Continue to be on bed rest for the next [address] Hoang. Dictated By: MORENITA DARDEN/EDIS Conf#: [id number] DID#: [id number]
--- NOTE | 2018-12-01 15:21 | PN ---
DATE: 11/27/2018 SUBJECTIVE: The patient feels good. No complaints. OBJECTIVE: VITAL SIGNS: Afebrile. Vital signs stable. ABDOMEN: Soft. heart tones are normal. Fundic height is 36 cm. EXTREMITIES: No calf tenderness. ASSESSMENT: A 31 and 5/7 weeks' twin with resolving labor. PLAN: Continue with bed rest. Dictated By: MORENITA DARDEN/EDIS Conf#: [id number] DID#: [id number]
--- NOTE | 2018-12-01 15:25 | PN ---
DATE: 11/28/2018 SUBJECTIVE: The patient feels good. On and off lower abdominal cramps. OBJECTIVE: VITAL SIGNS: She is afebrile. Vital signs okay. ABDOMEN: heart tones are normal for both babies. No tenderness noted. No vaginal bleeding. EXTREMITIES: No calf tenderness. ASSESSMENT: A 31 and 6/7 weeks' intrauterine twin , resolved labor. Dictated By: MORENITA DARDEN/EDIS Conf#: [id number] DID#: [id number]
--- NOTE | 2018-12-01 15:47 | PN ---
DATE: 11/30/2018 SUBJECTIVE: The patient feels good. No complaints. OBJECTIVE: VITAL SIGNS: She is afebrile. Vital signs are stable. ABDOMEN: Soft. heart tones are normal for both babies. No vaginal discharge. EXTREMITIES: No calf tenderness. ASSESSMENT: A 32 and 1/7 weeks' intrauterine twin with resolved labor. PLAN: Home on Saturday and repeat ultrasound on Saturday and CBC. Dictated By: MORENITA DARDEN/EDIS Conf#: [id number] DID#: [id number]
--- NOTE | 2018-12-01 15:47 | PN ---
DATE: 12/01/2018 TIME: 08:30 A.M. SUBJECTIVE: The patient feels good. No pain, no contractions, good bowel movement and good urine ou tput. OBJECTIVE: VITAL SIGNS: She is afebrile. Vital signs stable. ABDOMEN: Soft. Fundic height 36 cm. heart tones normal for both. No tenderness noted. No v aginal bleeding. EXTREMITIES: No calf tenderness. ASSESSMENT: 32 weeks' twin , resolving premature labor. PLAN: Patient will go home on Saturday per Dr. Hoang, and she will have a repeat ultrasound on Saturday before discharge. The plans were explained to the patient and she understood everything totally. Dictated By: MORENITA CAIN MD NS/NTS Conf#: [id number] DID#: [id number] CC: MORENITA CAIN MD;*EndCC*
[2018-12-01] MEDS: AL HYDROX/MG HYDROX/SIMETH 30 ML CUP PO PRN (22:00)
--- NOTE | 2018-12-01 23:25 | DS ---
Date/Time of Note Date/Time of Note DATE: 12/01/18 TIME: 23:24 Obstetrical Discharge Record Final Diagnosis Final Diagnosis: not delivered Other Final Diagnosis Twins, 32w 3d Complications Labor Augmentation: No Induction: No Tocolytics: Magnesium Sulfate Rupture of Membranes: No Condition on Discharge Physical Assessment Last Vitals: Afebrile VSS. Voiding: Yes Bowel Movement: Yes Breast: Soft, non-tender Fundus: Other (gravid) Calf Tenderness: No Patient Condition: Good LIBOROI ROSARIO MD Dec 01, 2018 23:25
--- NOTE | 2018-12-04 03:53 | CONS ---
DATE OF ADMISSION: 11/19/2018 DATE OF CONSULTATION: 12/01/2018 The patient had been admitted for labor for second time about a week ago. She does really me et the criteria for contractions. She received again magnesium sulfate and betamethasone. F or some reason, her complete metabolic panel was done. AST and ALT are slightly elevated; however, t here is no reason for the elevations noted as patient's blood pressures are completely normal, and sh e denies any history of hepatitis or elevated LFTs. She does feel comfortable and recommendation is to discharge her home; however, check the liver funct ion tests again within a week for comparison and also to schedule a perinatology for transvaginal cer vical length and provide us with a repeat liver function test results. Dictated By: NONI BREWER MD ST/EDIS Conf#: [id number] DID#: [id number]
== END 2018-12-01 22:10 | disposition home or self-care (01) | DRG 833 ==
LOC: OBT 22:36 → L-D 22:37 → OBT 11-19 01:40 → PP1 11-19 20:03
PROVIDERS: ADMIT Obstetrics & Gynecology; ATTEND Obstetrics & Gynecology
DX: O47.03 False labor before 37 completed weeks of gestation, third trimester (principal); O30.003 Twin pregnancy, unspecified number of placenta and unspecified number of amniotic sacs, third trimester; Z3A.32 32 weeks gestation of pregnancy
CPT/HCPCS: 36415; 76815; 76816; 76817; 76818; 80053; 81001; 81003; 83735; 85025; 85610; 85730; 86850; 86900; 86901; G0463; J1100; J3475; J7120

== ENCOUNTER 2018-12-24 04:30 | Inpatient (IN) | payer BC ==
[~2018-12-24] VITALS: Ht 157.5 cm; Wt 104.5 kg
[2018-12-24 04:44] VITALS: Ht 157.5 cm; Wt 104.5 kg
[2018-12-24] MEDS ORDERED: LACTATED RINGER'S 1,000 ML IV PRN (05:11)
[2018-12-24] MEDS ORDERED: BETAMET NA PHOS/AC(6 MG/ML) 2 ML INJ SYG IM SCH (05:30)
[2018-12-24] MEDS ORDERED: METHYLERGONOVINE 0.2 MG INJ IM PRN ×5 (05:30→21:30)
[2018-12-24] MEDS ORDERED: LIDOCAINE 1% (MPF) 30 ML INJ INJ PRN (05:30)
[2018-12-24] MEDS ORDERED: CARBOPROST 250 MCG INJ IM PRN ×5 (05:30→21:30)
[2018-12-24] MEDS ORDERED: MISOPROSTOL 200 MCG TAB PR PRN ×5 (05:30→21:30)
[2018-12-24] MEDS ORDERED: OXYTOCIN 30 UNITS/LR 500 ML IV PRN ×5 (05:30→21:30)
[2018-12-24] MEDS ORDERED: OXYTOCIN 30 UNITS/LR 500 ML IV SCH ×4 (05:30→21:02)
[2018-12-24] MEDS: LACTATED RINGER'S 1,000 ML IV SCH ×3 (05:52→18:59)
--- NOTE | 2018-12-24 06:00 | TRIAGE ---
OB Triage Datetime Report Generated by CPN: 12/24/2018 05:55 Datetime: 12/24/2018 05:18 Labor Evaluation Frequency: 2-8 Monitor Mode: External Duration (sec)2399: 40-70 Pattern: Normal: <= 5 Contractions in 10 Minutes Heart Rate FHR Baseline Rate: 135 Monitor Mode: External US FHR Baseline Changes: No Baseline Change Variability: Moderate 6-25 bpm Decelerations: None Datetime: 12/24/2018 05:10 Stage of : Labor Datetime: 12/24/2018 04:47 EGA: 35.5 Datetime: 12/24/2018 04:30 Time of Arrival: 12/24/2018 04:30 EGA: 35.5 Arrived By: Wheelchair Arrived From: Home Chief Complaint: uc's since 003 Movement: Present Contractions: Occasional Time Contractions Began: 12/24/2018 00:30 Contractions: Q15MIN Rupture of Membranes: Denies Vaginal Discharge: Denies Recent Sexual Intercouse: Denies Abdominal Trauma: Not Applicable Patient Complaints: Contractions Time Provider Notified: 12/24/2018 05:00 Provider Notified: SALCEDA Initial Plan: EFM, CALL OB Datetime: 12/01/2018 22:27 Stage of : Antepartum Datetime: 12/01/2018 21:50 Stage of : Antepartum Datetime: 12/01/2018 21:40 Stage of : Antepartum Monitor Mode: External Contraction Comments: PT DENIES CRAMPING Comments: PT STATES + FM Pain Presence: None/Denies Pain Type: N/A Vaginal Exam Membrane Status: Intact Vaginal Bleeding: None Datetime: 12/01/2018 21:16 Labor Evaluation Frequency: NONE Monitor Mode: External Resting Tone [place]: Relaxed Heart Rate FHR Baseline Rate: 150 Monitor Mode: External US Variability: Moderate 6-25 bpm Accelerations: 15X15 Decelerations: None Category: Category I Pain Presence: None/Denies Pain Type: N/A Datetime: 12/01/2018 20:41 Labor Evaluation Frequency: NONE Monitor Mode: External Resting Tone [place]: Relaxed Pain Presence: None/Denies Pain Type: N/A Datetime: 12/01/2018 20:00 Labor Evaluation Frequency: NONE Monitor Mode: External Resting Tone [place]: Relaxed Pain Presence: None/Denies Pain Type: N/A Datetime: 12/01/2018 19:26 Stage of : Antepartum Assessment Type: Ongoing Assessment Maternal Assessment Level of Consciousness: Fully Conscious DTR's/Clonus: DTRs 2+; No Clonus Headache: Denies Blurred Vision: No Respiratory Effort: Unlabored; Regular Rhythm; Equal Expansion Breath Sounds, Left: Clear and Equal Breath Sounds, Right: Clear and Equal Nausea/Vomiting: Denies RUQ Epigastric Pain: Denies Lower Extremities Edema: None Degree: None Upper Extremities Edema: None Degree: None Facial Edema: None Temperature Route: Oral Fall Risk Assessment History of Falling: (0) No Secondary Diagnosis: (0) No Ambulatory Aid: (0) Bedrest/Nurse Assist IV Therapy: (0) No Gait: (0) Normal/Bedrest/Immobile Mental Status: (0) Oriented to Own Ability Fall Score: 0 Fall Risk Score Definition: No Risk: No action required Monitor Mode: External Contraction Comments: PT DENIES CRAMPING Comments: PT STATES + FM Pain Presence: None/Denies Pain Type: N/A Vaginal Exam Membrane Status: Intact Vaginal Bleeding: None Datetime: 12/01/2018 18:00 Stage of : Antepartum Maternal Assessment Level of Consciousness: Fully Conscious Labor Evaluation Frequency: 0/hr Monitor Mode: External Pain Assessment Pain Scale: 0 Vaginal Bleeding: None Datetime: 12/01/2018 17:46 Maternal Assessment Level of Consciousness: Fully Conscious Headache: Denies Blurred Vision: No Respiratory Effort: Unlabored Nausea/Vomiting: Denies RUQ Epigastric Pain: Denies Resting Tone [place]: Relaxed Datetime: 12/01/2018 17:22 Stage of : Antepartum Maternal Assessment Level of Consciousness: Fully Conscious Labor Evaluation Frequency: 0/hr Monitor Mode: External Pain Assessment Pain Scale: 0 Vaginal Bleeding: None Datetime: 12/01/2018 16:00 Stage of : Antepartum Maternal Assessment Level of Consciousness: Fully Conscious Labor Evaluation Frequency: 0/hr Monitor Mode: External Pain Assessment Pain Scale: 0 Vaginal Bleeding: None Datetime: 12/01/2018 15:54 Pain Presence: None/Denies Datetime: 12/01/2018 15:15 Stage of : Antepartum Maternal Assessment Level of Consciousness: Fully Conscious Labor Evaluation Frequency: 0/hr Monitor Mode: External Pain Assessment Pain Scale: 0 Vaginal Bleeding: None Datetime: 12/01/2018 14:30 Stage of : Antepartum Maternal Assessment Level of Consciousness: Fully Conscious Headache: Denies Blurred Vision: No Respiratory Effort: Unlabored Nausea/Vomiting: Denies RUQ Epigastric Pain: Denies Labor Evaluation Frequency: 0/hr Monitor Mode: External Pain Presence: None/Denies Datetime: 12/01/2018 13:00 Stage of : Antepartum Maternal Assessment Level of Consciousness: Fully Conscious Labor Evaluation Frequency: 0/hr Monitor Mode: External Pain Assessment Pain Scale: 0 Vaginal Bleeding: None Datetime: 12/01/2018 12:42 Maternal Assessment Level of Consciousness: Fully Conscious Headache: Denies Blurred Vision: No Respiratory Effort: Unlabored Nausea/Vomiting: Denies RUQ Epigastric Pain: Denies Pain Presence: None/Denies Datetime: 12/01/2018 12:34 Labor Evaluation Frequency: 0/hr Monitor Mode: External Datetime: 12/01/2018 12:32 Heart Rate FHR Baseline Rate: 145 Monitor Mode: External US Variability: Moderate 6-25 bpm Accelerations: 15X15 Decelerations: None Datetime: 12/01/2018 11:34 Monitor Mode: External Resting Tone [place]: Relaxed Monitor Mode: External US Comments: blue line lrq Datetime: 12/01/2018 11:00 Stage of : Antepartum Maternal Assessment Level of Consciousness: Fully Conscious Labor Evaluation Frequency: 0/hr Monitor Mode: External Pain Assessment Pain Scale: 0 Vaginal Bleeding: None Datetime: 12/01/2018 10:38 Maternal Assessment Level of Consciousness: Fully Conscious Headache: Denies Blurred Vision: No Nausea/Vomiting: Denies RUQ Epigastric Pain: Denies Resting Tone [place]: Relaxed Pain Presence: None/Denies Datetime: 12/01/2018 10:00 Stage of : Antepartum Maternal Assessment Level of Consciousness: Fully Conscious Labor Evaluation Frequency: 0/hr Monitor Mode: External Pain Assessment Pain Scale: 0 Vaginal Bleeding: None Datetime: 12/01/2018 09:57 Pain Presence: None/Denies Datetime: 12/01/2018 09:01 Stage of : Antepartum Maternal Assessment Level of Consciousness: Fully Conscious Labor Evaluation Frequency: occassional Monitor Mode: External Duration (sec)2399: 30-50 Quality: Mild Comments: pt. acknowledges movements x2 babies nst q shift. pt. eating breakfast at this time w/out distress Pain Assessment Pain Scale: 0 Vaginal Exam Membrane Status: Intact Vaginal Bleeding: None Datetime: 12/01/2018 08:38 Stage of : Antepartum Assessment Type: Ongoing Assessment Maternal Assessment Level of Consciousness: Fully Conscious Maternal Assessment Level of Consciousness: Fully Conscious DTR's/Clonus: DTRs 2+; No Clonus DTR's/Clonus: DTRs 2+ Headache: Denies Headache: Denies Blurred Vision: No Blurred Vision: No Respiratory Effort: Unlabored; Regular Rhythm; Equal Expansion Respiratory Effort: Unlabored Breath Sounds, Left: Clear and Equal Breath Sounds, Left: Clear and Equal Breath Sounds, Right: Clear and Equal Breath Sounds, Right: Clear and Equal Nausea/Vomiting: Denies Nausea/Vomiting: Denies RUQ Epigastric Pain: Denies RUQ Epigastric Pain: Denies Lower Extremities Edema: None Upper Extremities Edema: None Facial Edema: None Temperature Route: Oral Fall Risk Assessment History of Falling: (0) No Secondary Diagnosis: (0) No Ambulatory Aid: (0) Bedrest/Nurse Assist IV Therapy: (0) No Gait: (0) Normal/Bedrest/Immobile Mental Status: (0) Oriented to Own Ability Fall Score: 0 Fall Risk Score Definition: No Risk: No action required Pain Presence: None/Denies Datetime: 12/01/2018 08:26 Pain Presence: None/Denies Datetime: 12/01/2018 07:20 Stage of : Antepartum Datetime: 12/01/2018 07:11 Stage of : Antepartum Maternal Assessment Level of Consciousness: Fully Conscious Headache: Denies Blurred Vision: No Respiratory Effort: Unlabored Nausea/Vomiting: Denies RUQ Epigastric Pain: Denies Pain Presence: None/Denies Datetime: 12/01/2018 07:00 Stage of : Antepartum Labor Evaluation Frequency: NONE Monitor Mode: External Quality: Mild Resting Tone [place]: Relaxed Pain Presence: None/Denies Pain Type: N/A Datetime: 12/01/2018 06:20 Stage of : Antepartum Datetime: 12/01/2018 06:00 Labor Evaluation Frequency: X1 Monitor Mode: External Duration (sec)2399: 70 Quality: Mild Resting Tone [place]: Relaxed Datetime: 12/01/2018 05:26 Stage of : Antepartum Temperature Route: Oral Contraction Comments: PT DENIES CRAMPING Comments: PT STATES + FM Pain Presence: None/Denies Pain Type: N/A Vaginal Exam Membrane Status: Intact Vaginal Bleeding: None Datetime: 12/01/2018 05:00 Labor Evaluation Frequency: X5 Monitor Mode: External Duration (sec)2399: 60-90 Quality: Mild Resting Tone [place]: Relaxed Pain Presence: None/Denies Pain Type: N/A Pain Assessment Comments: PT DENIES ANY NEEDS AT THIS TIME Datetime: 12/01/2018 04:00 Labor Evaluation Frequency: X2 Monitor Mode: External Duration (sec)2399: 50-90 Quality: Mild Resting Tone [place]: Relaxed Pain Presence: None/Denies Pain Type: N/A Datetime: 12/01/2018 03:00 Labor Evaluation Frequency: X4 Monitor Mode: External Duration (sec)2399: 50-80 Quality: Mild Resting Tone [place]: Relaxed Pain Presence: None/Denies Pain Type: N/A Datetime: 12/01/2018 02:00 Labor Evaluation Frequency: NONE Monitor Mode: External Resting Tone [place]: Relaxed Pain Presence: None/Denies Pain Type: N/A Pain Assessment Comments: PT SLEEPING BUT EASILY AROUSED Datetime: 12/01/2018 01:29 Stage of : Antepartum Temperature Route: Oral Pain Presence: None/Denies Pain Type: N/A Datetime: 12/01/2018 01:00 Labor Evaluation Frequency: X1 Monitor Mode: External Duration (sec)2399: 50 Quality: Mild Resting Tone [place]: Relaxed Pain Presence: None/Denies Pain Type: N/A Pain Assessment Comments: PT SLEEPING WITH EVEN UNLABORED BREATHING Datetime: 12/01/2018 00:00 Labor Evaluation Frequency: X2 Monitor Mode: External Duration (sec)2399: 60-70 Quality: Mild Resting Tone [place]: Relaxed Pain Presence: None/Denies Pain Type: N/A Datetime: 11/30/2018 23:00 Labor Evaluation Frequency: NONE Monitor Mode: External Resting Tone [place]: Relaxed Pain Presence: None/Denies Pain Type: N/A Datetime: 11/30/2018 22:19 Labor Evaluation Frequency: NONE Monitor Mode: External Resting Tone [place]: Relaxed Heart Rate FHR Baseline Rate: 130 Monitor Mode: External US Variability: Moderate 6-25 bpm Accelerations: 15X15 Decelerations: None Category: Category I Comments: U/S REMOVED. NST COMPLETED. Pain Presence: None/Denies Pain Type: N/A Datetime: 11/30/2018 21:24 Monitor Mode: External US Comments: APPLIED FOR NST Comments: APPLIED FORNST Pain Presence: None/Denies Pain Type: N/A Datetime: 11/30/2018 21:00 Labor Evaluation Frequency: NONE Monitor Mode: External Resting Tone [place]: Relaxed Pain Presence: None/Denies Pain Type: N/A Datetime: 11/30/2018 20:36 Stage of : Antepartum Datetime: 11/30/2018 20:00 Labor Evaluation Frequency: NONE Monitor Mode: External Resting Tone [place]: Relaxed Pain Presence: None/Denies Pain Type: N/A Datetime: 11/30/2018 19:21 Stage of : Antepartum Assessment Type: Ongoing Assessment Maternal Assessment Level of Consciousness: Fully Conscious DTR's/Clonus: DTRs 2+; No Clonus Headache: Denies Blurred Vision: No Respiratory Effort: Unlabored; Regular Rhythm; Equal Expansion Breath Sounds, Left: Clear and Equal Breath Sounds, Right: Clear and Equal Nausea/Vomiting: Denies RUQ Epigastric Pain: Denies Lower Extremities Edema: None Degree: None Upper Extremities Edema: None Degree: None Facial Edema: None Temperature Route: Oral Fall Risk Assessment History of Falling: (0) No Secondary Diagnosis: (0) No Ambulatory Aid: (0) Bedrest/Nurse Assist IV Therapy: (0) No Gait: (0) Normal/Bedrest/Immobile Mental Status: (0) Oriented to Own Ability Fall Score: 0 Fall Risk Score Definition: No Risk: No action required Contraction Comments: PT DENIES CRAMPING Comments: PT STATES + FM Pain Presence: None/Denies Pain Type: N/A Vaginal Exam Membrane Status: Intact Vaginal Bleeding: None Datetime: 11/30/2018 19:00 Labor Evaluation Frequency: 0 Monitor Mode: External Resting Tone [place]: Relaxed Pain Assessment Pain Scale: 0 Pain Presence: None/Denies Pain Type: N/A Datetime: 11/30/2018 18:00 Labor Evaluation Frequency: 0 Monitor Mode: External Resting Tone [place]: Relaxed Pain Assessment Pain Scale: 0 Pain Presence: None/Denies Pain Type: N/A Datetime: 11/30/2018 17:50 Stage of : Antepartum Datetime: 11/30/2018 17:00 Labor Evaluation Frequency: 0 Monitor Mode: External Resting Tone [place]: Relaxed Pain Assessment Pain Scale: 0 Pain Presence: None/Denies Pain Type: N/A Datetime: 11/30/2018 16:00 Stage of : Antepartum Labor Evaluation Frequency: 0 Monitor Mode: External Quality: Mild Pattern: Normal: <= 5 Contractions in 10 Minutes Resting Tone [place]: Relaxed Pain Assessment Pain Scale: 0 Datetime: 11/30/2018 15:59 Stage of : Antepartum Temperature Route: Oral Pain Assessment Pain Scale: 0 Pain Presence: None/Denies Pain Type: N/A Pain Relief Measures: Comfort Measures Datetime: 11/30/2018 15:00 Stage of : Antepartum Labor Evaluation Frequency: 0 Monitor Mode: External Quality: Mild Pattern: Normal: <= 5 Contractions in 10 Minutes Resting Tone [place]: Relaxed Pain Assessment Pain Scale: 0 Datetime: 11/30/2018 14:00 Stage of : Antepartum Labor Evaluation Frequency: 0 Monitor Mode: External Quality: Mild Pattern: Normal: <= 5 Contractions in 10 Minutes Resting Tone [place]: Relaxed Pain Assessment Pain Scale: 0 Datetime: 11/30/2018 13:00 Stage of : Antepartum Labor Evaluation Frequency: 0 Monitor Mode: External Quality: Mild Pattern: Normal: <= 5 Contractions in 10 Minutes Resting Tone [place]: Relaxed Pain Assessment Pain Scale: 0 Datetime: 11/30/2018 12:20 Labor Evaluation Frequency: X2 Monitor Mode: External Duration (sec)2399: 50 Quality: Mild Pattern: Normal: <= 5 Contractions in 10 Minutes Resting Tone [place]: Relaxed Heart Rate FHR Baseline Rate: 135 Monitor Mode: External US FHR Baseline Changes: No Baseline Change Variability: Moderate 6-25 bpm Accelerations: 15X15 Decelerations: None Comments: NST completed Pain Assessment Pain Scale: 0 Pain Presence: None/Denies Pain Type: N/A Datetime: 11/30/2018 11:10 Monitor Mode: External Monitor Mode: External US Comments: NST STARTED Pain Assessment Pain Scale: 0 Pain Presence: None/Denies Pain Type: N/A Datetime: 11/30/2018 11:00 Labor Evaluation Frequency: X2 Labor Evaluation Frequency: 0 Monitor Mode: External Duration (sec)2399: 50 Quality: Mild Pattern: Normal: <= 5 Contractions in 10 Minutes Resting Tone [place]: Relaxed Monitor Mode: External US Pain Assessment Pain Scale: 0 Pain Presence: None/Denies Pain Type: N/A Datetime: 11/30/2018 10:00 Labor Evaluation Frequency: X2 Monitor Mode: External Duration (sec)2399: 50 Quality: Mild Pattern: Normal: <= 5 Contractions in 10 Minutes Resting Tone [place]: Relaxed Monitor Mode: External US Pain Assessment Pain Scale: 0 Pain Presence: None/Denies Pain Type: N/A Datetime: 11/30/2018 09:00 Labor Evaluation Frequency: X2 Monitor Mode: External Duration (sec)2399: 60 Quality: Mild Resting Tone [place]: Relaxed Datetime: 11/30/2018 08:10 Stage of : Antepartum Temperature Route: Oral Pain Assessment Pain Scale: 0 Pain Presence: None/Denies Pain Type: N/A Datetime: 11/30/2018 08:00 Labor Evaluation Frequency: 0 Monitor Mode: External Resting Tone [place]: Relaxed Datetime: 11/30/2018 07:11 Stage of : Antepartum Datetime: 11/30/2018 07:00 Labor Evaluation Frequency: none Monitor Mode: External Resting Tone [place]: Relaxed Datetime: 11/30/2018 06:00 Labor Evaluation Frequency: none Monitor Mode: External Resting Tone [place]: Relaxed Datetime: 11/30/2018 05:17 Stage of : Antepartum Temperature Route: Oral Pain Assessment Pain Scale: 0 Pain Presence: None/Denies Pain Goal: 0 Datetime: 11/30/2018 05:00 Labor Evaluation Frequency: x4 Monitor Mode: External Duration (sec)2399: 40-60 Quality: Mild Resting Tone [place]: Relaxed Contraction Comments: pt without complaint of uc pain Datetime: 11/30/2018 04:00 Labor Evaluation Frequency: x3 Monitor Mode: External Duration (sec)2399: 60-80 Quality: Mild Resting Tone [place]: Relaxed Contraction Comments: pt without comlaint of uc pain, Datetime: 11/30/2018 03:00 Labor Evaluation Frequency: none Monitor Mode: External Resting Tone [place]: Relaxed Datetime: 11/30/2018 02:00 Labor Evaluation Frequency: x2 Monitor Mode: External Duration (sec)2399: 60-90 Quality: Mild Resting Tone [place]: Relaxed Contraction Comments: pt resting without apparent distress. Datetime: 11/30/2018 01:00 Labor Evaluation Frequency: none Monitor Mode: External Resting Tone [place]: Relaxed Datetime: 11/30/2018 00:00 Labor Evaluation Frequency: none Monitor Mode: External Resting Tone [place]: Relaxed Datetime: 11/29/2018 23:00 Labor Evaluation Frequency: none Monitor Mode: External Resting Tone [place]: Relaxed Datetime: 11/29/2018 21:59 Labor Evaluation Frequency: none Monitor Mode: External Resting Tone [place]: Relaxed Pain Assessment Pain Scale: 0 Pain Presence: None/Denies Pain Type: N/A Datetime: 11/29/2018 21:00 Labor Evaluation Frequency: x1 Monitor Mode: External Duration (sec)2399: 60 Quality: Mild Resting Tone [place]: Relaxed Contraction Comments: pt complains of occasional ucc pain. Heart Rate FHR Baseline Rate: 140 Monitor Mode: External US FHR Baseline Changes: No Baseline Change Variability: Moderate 6-25 bpm Accelerations: 15X15 Decelerations: None Category: Category I Comments: +FM noted. NST reactive and reassuring. EFM off. Datetime: 11/29/2018 20:13 Comments: EFM on. +FM noted. Datetime: 11/29/2018 20:05 Assessment Type: Ongoing Assessment Maternal Assessment Level of Consciousness: Fully Conscious DTR's/Clonus: DTRs 2+; No Clonus Headache: Denies Blurred Vision: No Respiratory Effort: Unlabored; Regular Rhythm; Equal Expansion Breath Sounds, Left: Clear and Equal Breath Sounds, Right: Clear and Equal Nausea/Vomiting: Denies RUQ Epigastric Pain: Denies Lower Extremities Edema: None Degree: None Upper Extremities Edema: None Degree: None Facial Edema: None Fall Risk Assessment History of Falling: (0) No Secondary Diagnosis: (0) No Ambulatory Aid: (0) Bedrest/Nurse Assist IV Therapy: (0) No Gait: (0) Normal/Bedrest/Immobile Mental Status: (0) Oriented to Own Ability Fall Score: 0 Fall Risk Score Definition: No Risk: No action required Datetime: 11/29/2018 20:03 Stage of : Antepartum Temperature Route: Oral Pain Assessment Pain Scale: 0 Pain Presence: None/Denies Pain Type: Pressure Pain Location: Abdomen Pain Goal: 0 Pain Relief Measures: Comfort Measures Datetime: 11/29/2018 20:00 Labor Evaluation Frequency: x1 Monitor Mode: External Duration (sec)2399: 60 Quality: Mild Resting Tone [place]: Relaxed Contraction Comments: pt without complaint of uc pain, Datetime: 11/29/2018 18:58 Stage of : Antepartum Datetime: 11/29/2018 18:30 Labor Evaluation Frequency: 0 Monitor Mode: External Datetime: 11/29/2018 17:30 Labor Evaluation Frequency: 0 Monitor Mode: External Datetime: 11/29/2018 16:39 Stage of : Antepartum Temperature Route: Oral Pain Assessment Pain Scale: 0 Pain Presence: None/Denies Pain Goal: 0 Datetime: 11/29/2018 16:30 Labor Evaluation Frequency: OCC Monitor Mode: External Quality: Mild Pattern: Normal: <= 5 Contractions in 10 Minutes Resting Tone [place]: Relaxed Datetime: 11/29/2018 15:14 Stage of : Antepartum Datetime: 11/29/2018 15:00 Labor Evaluation Frequency: 0 Monitor Mode: External Datetime: 11/29/2018 14:00 Labor Evaluation Frequency: 0 Monitor Mode: External Datetime: 11/29/2018 13:03 Assessment Type: Ongoing Assessment Maternal Assessment Level of Consciousness: Fully Conscious DTR's/Clonus: DTRs 2+; No Clonus Headache: Denies Blurred Vision: No Respiratory Effort: Unlabored; Regular Rhythm; Equal Expansion Breath Sounds, Left: Clear and Equal Breath Sounds, Right: Clear and Equal Nausea/Vomiting: Denies RUQ Epigastric Pain: Denies Lower Extremities Edema: None Degree: None Degree: None Facial Edema: None Fall Risk Assessment History of Falling: (0) No Secondary Diagnosis: (0) No Ambulatory Aid: (0) Bedrest/Nurse Assist IV Therapy: (0) No Gait: (0) Normal/Bedrest/Immobile Mental Status: (0) Oriented to Own Ability Fall Score: 0 Fall Risk Score Definition: No Risk: No action required Datetime: 11/29/2018 13:00 Labor Evaluation Frequency: 0 Monitor Mode: External Datetime: 11/29/2018 12:11 Labor Evaluation Frequency: 0 Monitor Mode: External Datetime: 11/29/2018 11:59 Stage of : Antepartum Datetime: 11/29/2018 11:00 Labor Evaluation Frequency: X1 Monitor Mode: External Duration (sec)2399: 60 Quality: Mild Pattern: Normal: <= 5 Contractions in 10 Minutes Resting Tone [place]: Relaxed Datetime: 11/29/2018 10:00 Labor Evaluation Frequency: 0 Monitor Mode: External Pattern: Normal: <= 5 Contractions in 10 Minutes Resting Tone [place]: Relaxed Datetime: 11/29/2018 09:00 Labor Evaluation Frequency: 0 Monitor Mode: External Pattern: Normal: <= 5 Contractions in 10 Minutes Datetime: 11/29/2018 08:28 Labor Evaluation Frequency: x1 Monitor Mode: External Duration (sec)2399: 80 Quality: Mild Pattern: Normal: <= 5 Contractions in 10 Minutes Resting Tone [place]: Relaxed Heart Rate FHR Baseline Rate: 135 Monitor Mode: External [place] Variability: Moderate 6-25 bpm Accelerations: 15X15 Decelerations: None Category: Category I Datetime: 11/29/2018 08:00 Labor Evaluation Frequency: 0 Monitor Mode: External Pattern: Normal: <= 5 Contractions in 10 Minutes Resting Tone [place]: Relaxed Datetime: 11/29/2018 07:40 Comments: nst started Datetime: 11/29/2018 07:33 Contraction Comments: denies Comments: states positive fm x2 Pain Assessment Pain Scale: 0 Pain Presence: None/Denies Pain Type: N/A Pain Goal: 0 Datetime: 11/29/2018 07:32 Assessment Type: Ongoing Assessment Maternal Assessment Level of Consciousness: Fully Conscious DTR's/Clonus: DTRs 2+; No Clonus Headache: Denies Blurred Vision: No Respiratory Effort: Unlabored; Regular Rhythm; Equal Expansion Breath Sounds, Left: Clear and Equal Breath Sounds, Right: Clear and Equal Nausea/Vomiting: Denies RUQ Epigastric Pain: Denies Lower Extremities Edema: None Degree: None Upper Extremities Edema: None Degree: None Facial Edema: None Fall Risk Assessment History of Falling: (0) No Secondary Diagnosis: (0) No Ambulatory Aid: (0) Bedrest/Nurse Assist IV Therapy: (0) No Gait: (0) Normal/Bedrest/Immobile Mental Status: (0) Oriented to Own Ability Fall Score: 0 Fall Risk Score Definition: No Risk: No action required Datetime: 11/29/2018 07:00 Stage of : Antepartum Labor Evaluation Frequency: X0 Monitor Mode: External Duration (sec)2399: X0 Pattern: Normal: <= 5 Contractions in 10 Minutes Resting Tone [place]: Relaxed Datetime: 11/29/2018 06:00 Stage of : Antepartum Labor Evaluation Frequency: X0 Monitor Mode: External Duration (sec)2399: X0 Pattern: Normal: <= 5 Contractions in 10 Minutes Resting Tone [place]: Relaxed Datetime: 11/29/2018 05:34 Stage of : Antepartum Temperature Route: Oral Contraction Comments: PT DENIES FEELING UC'S OR CRAMPING Comments: PT REPORTED MOVEMENT Pain Assessment Pain Scale: 0 Pain Presence: None/Denies Pain Type: N/A Datetime: 11/29/2018 05:00 Stage of : Antepartum Labor Evaluation Frequency: X0 Monitor Mode: External Duration (sec)2399: X0 Pattern: Normal: <= 5 Contractions in 10 Minutes Resting Tone [place]: Relaxed Datetime: 11/29/2018 04:00 Stage of : Antepartum Labor Evaluation Frequency: X0 Monitor Mode: External Duration (sec)2399: X0 Pattern: Normal: <= 5 Contractions in 10 Minutes Resting Tone [place]: Relaxed Datetime: 11/29/2018 03:00 Stage of : Antepartum Labor Evaluation Frequency: X0 Monitor Mode: External Duration (sec)2399: X0 Pattern: Normal: <= 5 Contractions in 10 Minutes Resting Tone [place]: Relaxed Contraction Comments: PT DENIES FEELING UC'S OR CRAMPING Comments: PT REPORTED MOVEMENT Pain Assessment Pain Scale: 0 Pain Presence: None/Denies Pain Type: N/A Datetime: 11/29/2018 02:00 Stage of : Antepartum Labor Evaluation Frequency: X1 Monitor Mode: External Duration (sec)2399: 90 Pattern: Normal: <= 5 Contractions in 10 Minutes Resting Tone [place]: Relaxed Datetime: 11/29/2018 01:00 Stage of : Antepartum Labor Evaluation Frequency: X0 Monitor Mode: External Duration (sec)2399: X0 Pattern: Normal: <= 5 Contractions in 10 Minutes Resting Tone [place]: Relaxed Datetime: 11/29/2018 00:05 Stage of : Antepartum Labor Evaluation Frequency: X0 Monitor Mode: External Duration (sec)2399: X0 Pattern: Normal: <= 5 Contractions in 10 Minutes Resting Tone [place]: Relaxed Datetime: 11/28/2018 23:00 Stage of : Antepartum Labor Evaluation Frequency: X1 Monitor Mode: External Duration (sec)2399: 50 Quality: Mild Pattern: Normal: <= 5 Contractions in 10 Minutes Resting Tone [place]: Relaxed Contraction Comments: SOME IRRITABILITY NOTED Datetime: 11/28/2018 22:00 Stage of : Antepartum Labor Evaluation Frequency: X0 Monitor Mode: External Duration (sec)2399: X0 Pattern: Normal: <= 5 Contractions in 10 Minutes Resting Tone [place]: Relaxed Heart Rate FHR Baseline Rate: 145 Monitor Mode: External US Variability: Moderate 6-25 bpm Accelerations: 15X15 Decelerations: None Category: Category I Datetime: 11/28/2018 21:16 Monitor Mode: External US Comments: APPLIED; QSHIFT NST STARTED Datetime: 11/28/2018 21:00 Stage of : Antepartum Labor Evaluation Frequency: X1 Monitor Mode: External Duration (sec)2399: 40 Pattern: Normal: <= 5 Contractions in 10 Minutes Resting Tone [place]: Relaxed Contraction Comments: PT DENIES FEELING UC'S OR CRAMPING Datetime: 11/28/2018 20:00 Stage of : Antepartum Labor Evaluation Frequency: X0 Monitor Mode: External Duration (sec)2399: X0 Pattern: Normal: <= 5 Contractions in 10 Minutes Resting Tone [place]: Relaxed Contraction Comments: PT DENIES FEELING CONTRACTIONS OR CRAMPING OVER THE PAST HOUR. Comments: PT REPORTED MOVEMENT. Datetime: 11/28/2018 19:50 Stage of : Antepartum Assessment Type: Ongoing Assessment Maternal Assessment Level of Consciousness: Fully Conscious DTR's/Clonus: DTRs 2+; No Clonus Headache: Denies Blurred Vision: No Respiratory Effort: Unlabored; Regular Rhythm; Equal Expansion Breath Sounds, Left: Clear and Equal Breath Sounds, Right: Clear and Equal Nausea/Vomiting: Denies RUQ Epigastric Pain: Denies Lower Extremities Edema: None Degree: None Upper Extremities Edema: None Degree: None Facial Edema: None Temperature Route: Oral Fall Risk Assessment History of Falling: (0) No Secondary Diagnosis: (0) No Ambulatory Aid: (0) Bedrest/Nurse Assist IV Therapy: (0) No Gait: (0) Normal/Bedrest/Immobile Mental Status: (0) Oriented to Own Ability Fall Score: 0 Fall Risk Score Definition: No Risk: No action required Pain Assessment Pain Scale: 0 Pain Presence: None/Denies Pain Type: N/A Datetime: 11/28/2018 18:56 Labor Evaluation Frequency: 0 Monitor Mode: External Resting Tone [place]: Relaxed Datetime: 11/28/2018 17:38 Labor Evaluation Frequency: 0 Monitor Mode: External Resting Tone [place]: Relaxed Datetime: 11/28/2018 16:42 Labor Evaluation Frequency: 0 Monitor Mode: External Resting Tone [place]: Relaxed Datetime: 11/28/2018 15:40 Labor Evaluation Frequency: 0 Monitor Mode: External Resting Tone [place]: Relaxed Pain Presence: None/Denies Datetime: 11/28/2018 14:35 Labor Evaluation Frequency: 0 Monitor Mode: External Resting Tone [place]: Relaxed Datetime: 11/28/2018 13:22 Labor Evaluation Frequency: 0 Monitor Mode: External Resting Tone [place]: Relaxed Datetime: 11/28/2018 12:10 Labor Evaluation Frequency: 0 Monitor Mode: External Resting Tone [place]: Relaxed Datetime: 11/28/2018 11:18 Labor Evaluation Frequency: 0 Monitor Mode: External Resting Tone [place]: Relaxed Datetime: 11/28/2018 10:55 Labor Evaluation Frequency: 0 Monitor Mode: External Resting Tone [place]: Relaxed Heart Rate FHR Baseline Rate: 140 Monitor Mode: External US FHR Baseline Changes: No Baseline Change Variability: Moderate 6-25 bpm Accelerations: 15X15 Decelerations: None Category: Category I Datetime: 11/28/2018 09:07 Labor Evaluation Frequency: 0 Monitor Mode: External Resting Tone [place]: Relaxed Pain Presence: None/Denies Datetime: 11/28/2018 07:20 Assessment Type: Ongoing Assessment Maternal Assessment Level of Consciousness: Fully Conscious DTR's/Clonus: DTRs 2+; No Clonus Headache: Denies Blurred Vision: No Respiratory Effort: Unlabored; Regular Rhythm; Equal Expansion Breath Sounds, Left: Clear and Equal Breath Sounds, Right: Clear and Equal Nausea/Vomiting: Denies RUQ Epigastric Pain: Denies Facial Edema: None Fall Risk Assessment History of Falling: (0) No Secondary Diagnosis: (0) No Ambulatory Aid: (0) Bedrest/Nurse Assist IV Therapy: (0) No Gait: (0) Normal/Bedrest/Immobile Mental Status: (0) Oriented to Own Ability Fall Score: 0 Fall Risk Score Definition: No Risk: No action required Datetime: 11/28/2018 07:03 Labor Evaluation Frequency: 0 Monitor Mode: External Resting Tone [place]: Relaxed Datetime: 11/28/2018 07:00 Labor Evaluation Frequency: C2 Monitor Mode: External Duration (sec)2399: 50-60 Quality: Mild Resting Tone [place]: Relaxed Pain Presence: None/Denies Pain Type: N/A Datetime: 11/28/2018 06:00 Labor Evaluation Frequency: NONE Monitor Mode: External Resting Tone [place]: Relaxed Pain Presence: None/Denies Pain Type: N/A Datetime: 11/28/2018 05:16 Stage of : Antepartum Temperature Route: Oral Datetime: 11/28/2018 05:00 Labor Evaluation Frequency: X1 Monitor Mode: External Duration (sec)2399: 70 Quality: Mild Resting Tone [place]: Relaxed Pain Presence: None/Denies Pain Type: N/A Datetime: 11/28/2018 04:00 Labor Evaluation Frequency: X4 Monitor Mode: External Duration (sec)2399: 50-100 Quality: Mild Resting Tone [place]: Relaxed Pain Presence: None/Denies Pain Type: N/A Pain Assessment Comments: PT SLEEPING WITH EVEN UNLABORED BREATHING Datetime: 11/28/2018 03:00 Labor Evaluation Frequency: NONE Monitor Mode: External Resting Tone [place]: Relaxed Datetime: 11/28/2018 02:00 Labor Evaluation Frequency: NONE Monitor Mode: External Resting Tone [place]: Relaxed Pain Presence: None/Denies Pain Type: N/A Pain Assessment Comments: PT SLEEPING WITH EVEN UNLABORED BREATHNG Datetime: 11/28/2018 01:00 Labor Evaluation Frequency: NONE Monitor Mode: External Resting Tone [place]: Relaxed Pain Presence: None/Denies Pain Type: N/A Datetime: 11/28/2018 00:00 Labor Evaluation Frequency: NONE Monitor Mode: External Resting Tone [place]: Relaxed Pain Presence: None/Denies Pain Type: N/A Datetime: 11/27/2018 23:23 Stage of : Antepartum Monitor Mode: External Contraction Comments: REAPPLIED AFTER PT'S SHOWER. Datetime: 11/27/2018 22:38 Labor Evaluation Frequency: NONE Monitor Mode: External Resting Tone [place]: Relaxed Heart Rate FHR Baseline Rate: 130 Variability: Moderate 6-25 bpm Accelerations: 15X15 Decelerations: None Category: Category I Pain Presence: None/Denies Pain Type: N/A Datetime: 11/27/2018 21:50 Labor Evaluation Frequency: NONE Monitor Mode: External Resting Tone [place]: Relaxed Heart Rate FHR Baseline Rate: 140 Variability: Moderate 6-25 bpm Accelerations: 15X15 Decelerations: None Category: Category I Pain Presence: None/Denies Pain Type: N/A Datetime: 11/27/2018 20:54 Labor Evaluation Frequency: NONE Monitor Mode: External Resting Tone [place]: Relaxed Monitor Mode: External US Comments: APPLIED FOR NST Pain Presence: None/Denies Pain Type: N/A Datetime: 11/27/2018 20:00 Labor Evaluation Frequency: NONE Monitor Mode: External Resting Tone [place]: Relaxed Pain Presence: None/Denies Pain Type: N/A Datetime: 11/27/2018 19:50 Stage of : Antepartum Datetime: 11/27/2018 19:14 Stage of : Antepartum Assessment Type: Ongoing Assessment Maternal Assessment Level of Consciousness: Fully Conscious DTR's/Clonus: DTRs 2+; No Clonus Headache: Denies Blurred Vision: No Respiratory Effort: Unlabored; Regular Rhythm; Equal Expansion Breath Sounds, Left: Clear and Equal Breath Sounds, Right: Clear and Equal Nausea/Vomiting: Denies RUQ Epigastric Pain: Denies Lower Extremities Edema: None Degree: None Upper Extremities Edema: None Degree: None Facial Edema: None Temperature Route: Oral Fall Risk Assessment History of Falling: (0) No Secondary Diagnosis: (0) No Ambulatory Aid: (0) Bedrest/Nurse Assist IV Therapy: (0) No Gait: (0) Normal/Bedrest/Immobile Mental Status: (0) Oriented to Own Ability Fall Score: 0 Fall Risk Score Definition: No Risk: No action required Monitor Mode: External Contraction Comments: PT DENIES CRAMPING AT THIS TIME Monitor Mode: External US Comments: PT STATES + FM Pain Presence: None/Denies Pain Type: N/A Vaginal Exam Membrane Status: Intact Vaginal Bleeding: None Datetime: 11/27/2018 16:26 Labor Evaluation Frequency: 0 Monitor Mode: External Resting Tone [place]: Relaxed Datetime: 11/27/2018 14:30 Labor Evaluation Frequency: 1 Monitor Mode: External Duration (sec)2399: 50 Resting Tone [place]: Relaxed Datetime: 11/27/2018 13:39 Labor Evaluation Frequency: 2/hr Monitor Mode: External Duration (sec)2399: 40 Quality: Mild Resting Tone [place]: Relaxed Pain Presence: None/Denies Datetime: 11/27/2018 12:40 Labor Evaluation Frequency: occasional Monitor Mode: External Duration (sec)2399: 30 Pain Presence: None/Denies Datetime: 11/27/2018 11:25 Labor Evaluation Frequency: 0 Monitor Mode: External Resting Tone [place]: Relaxed Heart Rate FHR Baseline Rate: 135 Monitor Mode: External US FHR Baseline Changes: No Baseline Change Variability: Moderate 6-25 bpm Accelerations: 15X15 Decelerations: None Category: Category I Datetime: 11/27/2018 11:23 Comments: nst start Datetime: 11/27/2018 10:08 Labor Evaluation Frequency: 0 Monitor Mode: External Resting Tone [place]: Relaxed Datetime: 11/27/2018 08:38 Labor Evaluation Frequency: 0 Datetime: 11/27/2018 08:23 Labor Evaluation Frequency: 0 Monitor Mode: External Resting Tone [place]: Relaxed Datetime: 11/27/2018 08:22 Assessment Type: Ongoing Assessment Maternal Assessment Level of Consciousness: Fully Conscious Maternal Assessment Level of Consciousness: Fully Conscious DTR's/Clonus: DTRs 2+ DTR's/Clonus: DTRs 2+; No Clonus Headache: Denies Headache: Denies Blurred Vision: No Blurred Vision: No Respiratory Effort: Unlabored Respiratory Effort: Unlabored; Regular Rhythm; Equal Expansion Breath Sounds, Left: Clear and Equal Breath Sounds, Left: Clear and Equal Breath Sounds, Right: Clear and Equal Breath Sounds, Right: Clear and Equal Nausea/Vomiting: Denies Nausea/Vomiting: Denies RUQ Epigastric Pain: Denies RUQ Epigastric Pain: Denies Facial Edema: None Facial Edema: None Fall Risk Assessment History of Falling: (0) No Secondary Diagnosis: (0) No Ambulatory Aid: (0) Bedrest/Nurse Assist IV Therapy: (0) No Gait: (0) Normal/Bedrest/Immobile Mental Status: (0) Oriented to Own Ability Fall Score: 0 Fall Risk Score Definition: No Risk: No action required Pain Presence: None/Denies Datetime: 11/27/2018 05:44 Pain Presence: None/Denies (Annotations: PT STATED SOME TIMES SHE FEELS PRESSURE ON HER PELVIC AREA SPECIALLY WHEN SHE STANDS FOR LONG PERIODS OF TIMES,ENCOURAGED TO PELVIC REST POSSIBLE.) Datetime: 11/27/2018 05:20 Labor Evaluation Frequency: 0 Monitor Mode: External Duration (sec)2399: DENIES. Resting Tone [place]: Relaxed Contraction Comments: PT DENIES FEELING ANY UC'S. Comments: NST Q SHIFT STATED + MOVEMENTS ON BOTH BABIES. Pain Presence: None/Denies Datetime: 11/27/2018 04:20 Maternal Assessment Level of Consciousness: Fully Conscious Headache: Denies Blurred Vision: No Labor Evaluation Frequency: 0 Monitor Mode: External Resting Tone [place]: Relaxed Datetime: 11/27/2018 03:20 Labor Evaluation Frequency: X3 Monitor Mode: External Duration (sec)2399: 40-70 Quality: Mild Resting Tone [place]: Relaxed Datetime: 11/27/2018 02:20 Labor Evaluation Frequency: 0 Monitor Mode: External Duration (sec)2399: DENIES Resting Tone [place]: Relaxed Pain Presence: None/Denies Datetime: 11/27/2018 01:20 Labor Evaluation Frequency: 0 Monitor Mode: External Duration (sec)2399: DENIES Resting Tone [place]: Relaxed Pain Presence: None/Denies Datetime: 11/27/2018 00:20 Labor Evaluation Frequency: 0 Monitor Mode: External Duration (sec)2399: DENIES Resting Tone [place]: Relaxed Pain Presence: None/Denies Datetime: 11/26/2018 23:21 Labor Evaluation Frequency: 0 Monitor Mode: External Duration (sec)2399: DENIES Resting Tone [place]: Relaxed Heart Rate FHR Baseline Rate: 135 Monitor Mode: External US Variability: Moderate 6-25 bpm Accelerations: 15X15 Decelerations: None Category: Category I Comments: BLUE LINE,NST DONE. Pain Presence: None/Denies Datetime: 11/26/2018 22:21 Monitor Mode: External US Comments: PLACED NST STARTED Datetime: 11/26/2018 22:00 Labor Evaluation Frequency: 0 Monitor Mode: External Duration (sec)2399: DENIES Resting Tone [place]: Relaxed Datetime: 11/26/2018 21:00 Labor Evaluation Frequency: 0 Monitor Mode: External Resting Tone [place]: Relaxed Pain Presence: None/Denies Datetime: 11/26/2018 20:00 Labor Evaluation Frequency: X1 Monitor Mode: External Duration (sec)2399: 50 Resting Tone [place]: Relaxed Pain Presence: None/Denies Datetime: 11/26/2018 19:23 Stage of : Antepartum Assessment Type: Ongoing Assessment Maternal Assessment Level of Consciousness: Fully Conscious DTR's/Clonus: DTRs 2+; No Clonus Headache: Denies Blurred Vision: No Respiratory Effort: Unlabored; Regular Rhythm; Equal Expansion Breath Sounds, Left: Clear and Equal Breath Sounds, Right: Clear and Equal Nausea/Vomiting: Denies RUQ Epigastric Pain: Denies Lower Extremities Edema: None Degree: None Upper Extremities Edema: None Degree: None Facial Edema: None Temperature Route: Oral Fall Risk Assessment History of Falling: (0) No Secondary Diagnosis: (0) No Ambulatory Aid: (0) Bedrest/Nurse Assist IV Therapy: (0) No Gait: (0) Normal/Bedrest/Immobile Mental Status: (0) Oriented to Own Ability Fall Score: 0 Fall Risk Score Definition: No Risk: No action required Monitor Mode: External Contraction Comments: PT DENIES FEELING CTX'S AT THIS TIME Pain Assessment Pain Scale: 0 Pain Presence: None/Denies Pain Type: N/A Datetime: 11/26/2018 18:27 Stage of : Antepartum Labor Evaluation Frequency: 0 Monitor Mode: External Resting Tone [place]: Relaxed Datetime: 11/26/2018 17:45 Monitor Mode: External Quality: Mild Resting Tone [place]: Relaxed Contraction Comments: ONE CTX LASTING 90 SEC NOTED Pain Presence: None/Denies Pain Type: N/A Datetime: 11/26/2018 16:45 Stage of : Antepartum Labor Evaluation Frequency: 0 Monitor Mode: External Resting Tone [place]: Relaxed Pain Assessment Comments: PT REPORTS DISCOMFORT SUBSIDED Datetime: 11/26/2018 15:45 Stage of : Antepartum Labor Evaluation Frequency: occassional Monitor Mode: External Quality: Mild Resting Tone [place]: Relaxed Pain Presence: Intermittent Pain Type: Cramping Pain Location: Abdomen; Back; Perineum Pain Relief Measures: Comfort Measures Datetime: 11/26/2018 15:42 Comments: abd palpated Datetime: 11/26/2018 14:45 Stage of : Antepartum Monitor Mode: External Resting Tone [place]: Relaxed Contraction Comments: one 60s ctx per toco and also reported by pt Pain Presence: Intermittent Pain Type: Cramping Pain Location: Abdomen; Back; Perineum Pain Relief Measures: Comfort Measures Datetime: 11/26/2018 13:45 Stage of : Antepartum Labor Evaluation Frequency: 0 Monitor Mode: External Resting Tone [place]: Relaxed Pain Assessment Pain Scale: 0 Pain Presence: None/Denies Pain Type: N/A Datetime: 11/26/2018 13:23 Monitor Mode: External Datetime: 11/26/2018 12:42 Labor Evaluation Frequency: 0 Monitor Mode: External Resting Tone [place]: Relaxed Contraction Comments: no ctx's noted Monitor Mode: External US Variability: Moderate 6-25 bpm Accelerations: 15X15 Decelerations: None Category: Category I Comments: fht's from [id number] Datetime: 11/26/2018 12:41 Labor Evaluation Frequency: 0 Monitor Mode: External Duration (sec)2399: 0 Datetime: 11/26/2018 12:00 Stage of : Antepartum Labor Evaluation Frequency: 0 Monitor Mode: External Resting Tone [place]: Relaxed Pain Assessment Pain Scale: 0 Pain Presence: None/Denies Pain Type: N/A Datetime: 11/26/2018 11:27 Monitor Mode: External US Datetime: 11/26/2018 11:00 Stage of : Antepartum Labor Evaluation Frequency: 0 Monitor Mode: External Resting Tone [place]: Relaxed Contraction Comments: pt denies feeling ctx's at this time Comments: positive fm Pain Assessment Pain Scale: 0 Pain Presence: None/Denies Pain Type: N/A Datetime: 11/26/2018 10:00 Stage of : Antepartum Labor Evaluation Frequency: 0 Monitor Mode: External Resting Tone [place]: Relaxed Pain Assessment Pain Scale: 0 Pain Presence: None/Denies Pain Type: N/A Datetime: 11/26/2018 09:00 Stage of : Antepartum Labor Evaluation Frequency: 0 Monitor Mode: External Resting Tone [place]: Relaxed Pain Assessment Pain Scale: 0 Pain Presence: None/Denies Pain Type: N/A Datetime: 11/26/2018 08:16 Stage of : Antepartum Assessment Type: Ongoing Assessment Maternal Assessment Level of Consciousness: Fully Conscious Maternal Assessment Level of Consciousness: Fully Conscious DTR's/Clonus: DTRs 2+; No Clonus DTR's/Clonus: DTRs 2+; No Clonus Headache: Denies Headache: Denies Blurred Vision: No Respiratory Effort: Unlabored; Regular Rhythm; Equal Expansion Breath Sounds, Left: Clear and Equal Breath Sounds, Left: Clear and Equal Breath Sounds, Right: Clear and Equal Breath Sounds, Right: Clear and Equal Nausea/Vomiting: Denies Nausea/Vomiting: Denies RUQ Epigastric Pain: Denies RUQ Epigastric Pain: Denies Lower Extremities Edema: None Degree: None Upper Extremities Edema: None Degree: None Facial Edema: None Temperature Route: Oral Fall Risk Assessment History of Falling: (0) No Secondary Diagnosis: (0) No Ambulatory Aid: (0) Bedrest/Nurse Assist IV Therapy: (0) No Gait: (0) Normal/Bedrest/Immobile Mental Status: (0) Oriented to Own Ability Fall Score: 0 Fall Risk Score Definition: No Risk: No action required Pain Assessment Pain Scale: 0 Pain Presence: None/Denies Pain Type: N/A Pain Goal: 0 Datetime: 11/26/2018 08:00 Stage of : Antepartum Labor Evaluation Frequency: 0 Monitor Mode: External Resting Tone [place]: Relaxed Pain Assessment Pain Scale: 0 Pain Presence: None/Denies Pain Type: N/A Datetime: 11/26/2018 05:30 Labor Evaluation Frequency: 0 Monitor Mode: External Duration (sec)2399: denies Resting Tone [place]: Relaxed Datetime: 11/26/2018 04:50 Maternal Assessment Level of Consciousness: Fully Conscious Headache: Denies Blurred Vision: No Temperature Route: Oral Pain Presence: None/Denies Datetime: 11/26/2018 04:30 Labor Evaluation Frequency: 0 Monitor Mode: External Duration (sec)2399: denies Resting Tone [place]: Relaxed Pain Presence: None/Denies Datetime: 11/26/2018 03:30 Labor Evaluation Frequency: x3 Monitor Mode: External Duration (sec)2399: 50-60 Quality: Mild Resting Tone [place]: Relaxed Pain Presence: None/Denies Datetime: 11/26/2018 02:30 Labor Evaluation Frequency: x1 Monitor Mode: External Duration (sec)2399: 40 Quality: Mild Resting Tone [place]: Relaxed Pain Presence: None/Denies Datetime: 11/26/2018 01:30 Labor Evaluation Frequency: 0 Monitor Mode: External Duration (sec)2399: denies Resting Tone [place]: Relaxed Pain Presence: None/Denies Datetime: 11/26/2018 00:30 Labor Evaluation Frequency: 0 Monitor Mode: External Duration (sec)2399: denies Resting Tone [place]: Relaxed Pain Presence: None/Denies Datetime: 11/25/2018 23:27 Labor Evaluation Frequency: 0 Monitor Mode: External Duration (sec)2399: denies Resting Tone [place]: Relaxed Heart Rate FHR Baseline Rate: 140 Monitor Mode: External US Variability: Moderate 6-25 bpm Accelerations: 15X15 Decelerations: None Category: Category I Comments: blue line. Pain Presence: None/Denies Datetime: 11/25/2018 22:23 Monitor Mode: External US Comments: placed nst started Datetime: 11/25/2018 22:00 Labor Evaluation Frequency: 0 Monitor Mode: External Duration (sec)2399: denies Resting Tone [place]: Relaxed Pain Presence: None/Denies Datetime: 11/25/2018 21:00 Labor Evaluation Frequency: 0 Monitor Mode: External Duration (sec)2399: DENIES Resting Tone [place]: Relaxed Datetime: 11/25/2018 20:00 Labor Evaluation Frequency: 0 Monitor Mode: External Duration (sec)2399: DENIES Resting Tone [place]: Relaxed Comments: NST Q SHIFT PT STATED FEELING BABIES MOVING WILL DO NST LATER. Pain Presence: None/Denies Datetime: 11/25/2018 19:35 Stage of : Antepartum Assessment Type: Ongoing Assessment Maternal Assessment Level of Consciousness: Fully Conscious DTR's/Clonus: DTRs 2+; No Clonus Headache: Denies Blurred Vision: No Respiratory Effort: Unlabored; Regular Rhythm; Equal Expansion Breath Sounds, Left: Clear and Equal Breath Sounds, Right: Clear and Equal Nausea/Vomiting: Denies RUQ Epigastric Pain: Denies Lower Extremities Edema: None Degree: None Upper Extremities Edema: None Degree: None Facial Edema: None Temperature Route: Oral Fall Risk Assessment History of Falling: (0) No Secondary Diagnosis: (0) No Ambulatory Aid: (0) Bedrest/Nurse Assist IV Therapy: (0) No Gait: (0) Normal/Bedrest/Immobile Mental Status: (0) Oriented to Own Ability Fall Score: 0 Fall Risk Score Definition: No Risk: No action required Pain Presence: None/Denies Vaginal Exam Membrane Status: Intact Datetime: 11/25/2018 18:52 Stage of : Antepartum Maternal Assessment Level of Consciousness: Fully Conscious Headache: Denies Nausea/Vomiting: Denies RUQ Epigastric Pain: Denies Labor Evaluation Frequency: 0/hr Monitor Mode: External Vaginal Bleeding: None Datetime: 11/25/2018 17:41 Maternal Assessment Level of Consciousness: Fully Conscious Headache: Denies Blurred Vision: No Nausea/Vomiting: Denies RUQ Epigastric Pain: Present Pain Presence: None/Denies Datetime: 11/25/2018 17:00 Stage of : Antepartum Maternal Assessment Level of Consciousness: Fully Conscious Headache: Denies Nausea/Vomiting: Denies RUQ Epigastric Pain: Denies Labor Evaluation Frequency: 0/hr Monitor Mode: External Vaginal Bleeding: None Datetime: 11/25/2018 16:29 Pain Presence: None/Denies Datetime: 11/25/2018 16:02 Stage of : Antepartum Temperature Route: Oral Datetime: 11/25/2018 16:00 Stage of : Antepartum Maternal Assessment Level of Consciousness: Fully Conscious Headache: Denies Nausea/Vomiting: Denies RUQ Epigastric Pain: Denies Labor Evaluation Frequency: 0/hr Monitor Mode: External Vaginal Bleeding: None Datetime: 11/25/2018 14:00 Stage of : Antepartum Maternal Assessment Level of Consciousness: Fully Conscious Headache: Denies Nausea/Vomiting: Denies RUQ Epigastric Pain: Denies Labor Evaluation Frequency: 0/hr Monitor Mode: External Vaginal Bleeding: None Datetime: 11/25/2018 13:00 Stage of : Antepartum Maternal Assessment Level of Consciousness: Fully Conscious Headache: Denies Nausea/Vomiting: Denies RUQ Epigastric Pain: Denies Labor Evaluation Frequency: 0/hr Monitor Mode: External Vaginal Bleeding: None Datetime: 11/25/2018 12:00 Stage of : Antepartum Maternal Assessment Level of Consciousness: Fully Conscious Headache: Denies Nausea/Vomiting: Denies RUQ Epigastric Pain: Denies Labor Evaluation Frequency: 0/hr Monitor Mode: External Vaginal Bleeding: None Datetime: 11/25/2018 11:17 RUQ Epigastric Pain: Present Pain Assessment Pain Scale: 2 Pain Presence: Constant Pain Assessment Comments: pt. c/o heartburn Datetime: 11/25/2018 11:00 Stage of : Antepartum Maternal Assessment Level of Consciousness: Fully Conscious Headache: Denies Nausea/Vomiting: Denies RUQ Epigastric Pain: Denies Labor Evaluation Frequency: 0/hr Monitor Mode: External Pain Assessment Pain Scale: 0 Pain Presence: None/Denies Vaginal Exam Membrane Status: Intact Vaginal Bleeding: None Datetime: 11/25/2018 10:13 Comments: fht's approp. for ega of 31.4 Datetime: 11/25/2018 10:02 Labor Evaluation Frequency: 0/hr Monitor Mode: External Heart Rate FHR Baseline Rate: 140 Monitor Mode: External US Variability: Moderate 6-25 bpm Accelerations: 15X15 Decelerations: None Comments: blue line Datetime: 11/25/2018 09:31 Monitor Mode: External US Variability: Moderate 6-25 bpm Decelerations: None Datetime: 11/25/2018 09:30 Resting Tone [place]: Relaxed Datetime: 11/25/2018 09:24 Stage of : Antepartum Assessment Type: Ongoing Assessment Maternal Assessment Level of Consciousness: Fully Conscious DTR's/Clonus: DTRs 2+; No Clonus Headache: Denies Blurred Vision: No Respiratory Effort: Unlabored; Regular Rhythm; Equal Expansion Respiratory Effort: Unlabored Breath Sounds, Left: Clear and Equal Breath Sounds, Right: Clear and Equal Nausea/Vomiting: Denies Nausea/Vomiting: Denies RUQ Epigastric Pain: Denies Lower Extremities Edema: None Upper Extremities Edema: None Facial Edema: None Fall Risk Assessment History of Falling: (0) No Secondary Diagnosis: (0) No Ambulatory Aid: (0) Bedrest/Nurse Assist IV Therapy: (0) No Gait: (0) Normal/Bedrest/Immobile Mental Status: (0) Oriented to Own Ability Fall Score: 0 Fall Risk Score Definition: No Risk: No action required Resting Tone [place]: Relaxed Pain Presence: None/Denies Vaginal Exam Membrane Status: Intact Datetime: 11/25/2018 09:00 Labor Evaluation Frequency: x3 Monitor Mode: External Duration (sec)2399: 60 Quality: Mild Pattern: Normal: <= 5 Contractions in 10 Minutes Resting Tone [place]: Relaxed Pain Assessment Pain Scale: 0 Pain Presence: None/Denies Pain Type: N/A Datetime: 11/25/2018 08:00 Labor Evaluation Frequency: x3 Monitor Mode: External Duration (sec)2399: 60 Quality: Mild Pattern: Normal: <= 5 Contractions in 10 Minutes Resting Tone [place]: Relaxed Pain Assessment Pain Scale: 0 Pain Presence: None/Denies Pain Type: N/A Datetime: 11/25/2018 07:27 Stage of : Antepartum Temperature Route: Oral Datetime: 11/25/2018 06:50 Labor Evaluation Frequency: X1 Monitor Mode: External Duration (sec)2399: 40 Quality: Mild Resting Tone [place]: Relaxed Pain Presence: None/Denies Datetime: 11/25/2018 05:50 Labor Evaluation Frequency: X1 Monitor Mode: External Duration (sec)2399: 50 Quality: Mild Resting Tone [place]: Relaxed Pain Presence: None/Denies Datetime: 11/25/2018 04:50 Labor Evaluation Frequency: 0 Monitor Mode: External Duration (sec)2399: DENIES Resting Tone [place]: Relaxed Pain Presence: None/Denies Datetime: 11/25/2018 03:50 Labor Evaluation Frequency: 0 Monitor Mode: External Duration (sec)2399: DENIES Resting Tone [place]: Relaxed Pain Presence: None/Denies Datetime: 11/25/2018 03:41 Maternal Assessment Level of Consciousness: Fully Conscious Headache: Denies Blurred Vision: No Respiratory Effort: Unlabored; Regular Rhythm; Equal Expansion Breath Sounds, Left: Clear and Equal Breath Sounds, Right: Clear and Equal Datetime: 11/25/2018 03:38 Pain Presence: None/Denies Datetime: 11/25/2018 02:50 Labor Evaluation Frequency: 0 Monitor Mode: External Duration (sec)2399: denies Resting Tone [place]: Relaxed Datetime: 11/25/2018 01:50 Labor Evaluation Frequency: X2 Monitor Mode: External Duration (sec)2399: 40-50 Quality: Mild Resting Tone [place]: Relaxed Pain Presence: None/Denies Datetime: 11/25/2018 00:50 Labor Evaluation Frequency: X4 Monitor Mode: External Duration (sec)2399: 40-50 Resting Tone [place]: Relaxed Pain Presence: None/Denies Datetime: 11/24/2018 23:50 Labor Evaluation Frequency: 0 Monitor Mode: External Duration (sec)2399: DENIES Resting Tone [place]: Relaxed Pain Presence: None/Denies Datetime: 11/24/2018 23:00 Pain Assessment Comments: PT STATED SHE IS FEELING BETTER,NO PAIN ANYMORE,PT IN HER LEFT SIDE. Datetime: 11/24/2018 22:50 Labor Evaluation Frequency: 0 Monitor Mode: External Duration (sec)2399: DENIES Resting Tone [place]: Relaxed Datetime: 11/24/2018 21:50 Labor Evaluation Frequency: OCCASIONAL Monitor Mode: External Duration (sec)2399: 40-50 Quality: Mild Resting Tone [place]: Relaxed Pain Presence: None/Denies Datetime: 11/24/2018 20:45 Labor Evaluation Frequency: 0 Monitor Mode: External Quality: Mild Resting Tone [place]: Relaxed Contraction Comments: MILD UTERUS IRRITABILITY NOTED. Heart Rate FHR Baseline Rate: 145 Monitor Mode: External US Variability: Moderate 6-25 bpm Accelerations: 15X15 Decelerations: None Category: Category I Pain Assessment Comments: PT STATED HER PAIN IS LESS NOW 2/10 ON A SCALE WILL CONTINUED MONITORING RN TO RESSUMED C EFM IF NEEDED.,NST DONE AT THIS TIME Datetime: 11/24/2018 20:00 Labor Evaluation Frequency: OCCASIONAL Monitor Mode: External Duration (sec)2399: 30-40 Quality: Mild Resting Tone [place]: Relaxed Heart Rate FHR Baseline Rate: 145 Monitor Mode: External US Variability: Moderate 6-25 bpm Accelerations: 15X15 Decelerations: None Category: Category I Comments: BLUE LINE. Datetime: 11/24/2018 19:47 Stage of : Antepartum Assessment Type: Ongoing Assessment Maternal Assessment Level of Consciousness: Fully Conscious DTR's/Clonus: DTRs 2+; No Clonus Headache: Denies Blurred Vision: No Respiratory Effort: Unlabored; Regular Rhythm; Equal Expansion Breath Sounds, Left: Clear and Equal Breath Sounds, Right: Clear and Equal Nausea/Vomiting: Denies RUQ Epigastric Pain: Present (Annotations: PT C/O OF STOMACH PAIN 5/10 ON A SCALE,CRACKERS AND SPRI TE GIVEN,RN TO KEEP MONITORING PT,ABDOMEN SOFT UPON PALPATION.) Lower Extremities Edema: None Degree: None Upper Extremities Edema: None Degree: None Facial Edema: None Temperature Route: Oral Fall Risk Assessment History of Falling: (0) No Secondary Diagnosis: (0) No Ambulatory Aid: (0) Bedrest/Nurse Assist IV Therapy: (0) No Gait: (0) Normal/Bedrest/Immobile Mental Status: (0) Oriented to Own Ability Fall Score: 0 Fall Risk Score Definition: No Risk: No action required Pain Assessment Pain Scale: 5 Pain Presence: Constant Pain Type: Sharp; Ache Pain Location: Back; Right Flank; Left Flank Pain Relief Measures: Comfort Measures Datetime: 11/24/2018 18:57 Labor Evaluation Frequency: irreg Monitor Mode: External Duration (sec)2399: 30-50 Quality: Mild Heart Rate FHR Baseline Rate: 135 Monitor Mode: External US Variability: Moderate 6-25 bpm Accelerations: 15X15 Decelerations: None Datetime: 11/24/2018 18:07 Pain Assessment Pain Scale: 5 Pain Presence: Constant Pain Assessment Comments: pt. called rn and c/o epigastric pain. abdomen soft and non tender to cher ch. rn not plapating uc's at this time. will cont. to mnoitor. pt. denies vaginal pressure, bleeding, lof, Datetime: 11/24/2018 18:00 Stage of : Antepartum Maternal Assessment Level of Consciousness: Fully Conscious Headache: Denies Nausea/Vomiting: Denies RUQ Epigastric Pain: Denies Labor Evaluation Frequency: 0/hr Monitor Mode: External Pain Assessment Pain Scale: 0 Pain Presence: None/Denies Vaginal Bleeding: None Datetime: 11/24/2018 17:00 Stage of : Antepartum Maternal Assessment Level of Consciousness: Fully Conscious Headache: Denies Nausea/Vomiting: Denies RUQ Epigastric Pain: Denies Labor Evaluation Frequency: 0/hr Monitor Mode: External Pain Assessment Pain Scale: 0 Pain Presence: None/Denies Vaginal Bleeding: None Datetime: 11/24/2018 16:36 Pain Presence: None/Denies Datetime: 11/24/2018 16:13 Stage of : Antepartum Maternal Assessment Level of Consciousness: Fully Conscious Headache: Denies Nausea/Vomiting: Hx of Nausea/Vomiting RUQ Epigastric Pain: Denies Labor Evaluation Frequency: 0/hr Monitor Mode: External Pain Presence: None/Denies Datetime: 11/24/2018 15:08 Maternal Assessment Level of Consciousness: Fully Conscious Headache: Denies Blurred Vision: Unable to assess Respiratory Effort: Unlabored Nausea/Vomiting: Hx of Nausea/Vomiting RUQ Epigastric Pain: Denies Monitor Mode: External Resting Tone [place]: Relaxed Pain Presence: None/Denies Datetime: 11/24/2018 14:00 Stage of : Antepartum Maternal Assessment Level of Consciousness: Fully Conscious Headache: Denies Nausea/Vomiting: Denies RUQ Epigastric Pain: Denies Labor Evaluation Frequency: 0/hr Monitor Mode: External Pain Assessment Pain Scale: 0 Pain Presence: None/Denies Vaginal Bleeding: None Datetime: 11/24/2018 13:30 Pain Presence: None/Denies Datetime: 11/24/2018 13:00 Stage of : Antepartum Maternal Assessment Level of Consciousness: Fully Conscious Headache: Denies Nausea/Vomiting: Denies RUQ Epigastric Pain: Denies Labor Evaluation Frequency: 0/hr Monitor Mode: External Pain Assessment Pain Scale: 0 Pain Presence: None/Denies Vaginal Bleeding: None Datetime: 11/24/2018 11:53 Stage of : Antepartum Maternal Assessment Level of Consciousness: Fully Conscious Headache: Denies Nausea/Vomiting: Hx of Nausea/Vomiting (Annotations: pt. states she was having some nausea and mint tea was effective ) Resting Tone [place]: Relaxed Pain Assessment Pain Scale: 0 Pain Presence: None/Denies Vaginal Bleeding: None Datetime: 11/24/2018 11:00 Stage of : Antepartum Maternal Assessment Level of Consciousness: Fully Conscious Headache: Denies Nausea/Vomiting: Denies RUQ Epigastric Pain: Denies Labor Evaluation Frequency: 0/hr Monitor Mode: External Pain Assessment Pain Scale: 0 Pain Presence: None/Denies Vaginal Bleeding: None Datetime: 11/24/2018 10:11 Stage of : Antepartum Maternal Assessment Level of Consciousness: Fully Conscious Headache: Denies Nausea/Vomiting: Denies RUQ Epigastric Pain: Denies Labor Evaluation Frequency: 0/hr Monitor Mode: External Pain Assessment Pain Scale: 0 Pain Presence: None/Denies Vaginal Bleeding: None Datetime: 11/24/2018 09:41 Labor Evaluation Frequency: 0/hr Monitor Mode: External Resting Tone [place]: Relaxed Heart Rate FHR Baseline Rate: 145 Monitor Mode: External US Variability: Moderate 6-25 bpm Accelerations: 15X15 Decelerations: None Datetime: 11/24/2018 09:21 Maternal Assessment Level of Consciousness: Fully Conscious Headache: Denies Blurred Vision: No Respiratory Effort: Unlabored Nausea/Vomiting: Denies RUQ Epigastric Pain: Denies Monitor Mode: External Resting Tone [place]: Relaxed Comments: blue line lrq Pain Presence: None/Denies Datetime: 11/24/2018 07:54 Stage of : Antepartum Maternal Assessment Level of Consciousness: Fully Conscious Headache: Denies Blurred Vision: No Respiratory Effort: Unlabored Nausea/Vomiting: Denies RUQ Epigastric Pain: Denies Temperature Route: Oral Labor Evaluation Frequency: 2/hr Monitor Mode: External Duration (sec)2399: 50 Quality: Mild Datetime: 11/24/2018 07:53 Pain Assessment Pain Scale: 3 Pain Presence: Intermittent Pain Type: Contraction Pain Location: Abdomen Pain Relief Measures: Comfort Measures Pain Assessment Comments: pt. states uc q 30 minutes apart Datetime: 11/24/2018 07:09 Assessment Type: Ongoing Assessment Maternal Assessment Level of Consciousness: Fully Conscious Headache: Denies Blurred Vision: No Respiratory Effort: Unlabored Breath Sounds, Left: Clear and Equal Breath Sounds, Right: Clear and Equal Nausea/Vomiting: Denies RUQ Epigastric Pain: Denies Lower Extremities Edema: None Upper Extremities Edema: None Facial Edema: None Fall Risk Assessment History of Falling: (0) No Secondary Diagnosis: (0) No Ambulatory Aid: (0) Bedrest/Nurse Assist IV Therapy: (0) No Gait: (0) Normal/Bedrest/Immobile Mental Status: (0) Oriented to Own Ability Fall Score: 0 Fall Risk Score Definition: No Risk: No action required Pain Assessment Pain Scale: 2 Pain Presence: Intermittent Pain Type: Contraction Pain Location: Abdomen Pain Relief Measures: Comfort Measures Datetime: 11/24/2018 06:59 Labor Evaluation Frequency: 2/HR Monitor Mode: External Duration (sec)2399: 50-80 Quality: Mild Pattern: Normal: <= 5 Contractions in 10 Minutes Resting Tone [place]: Relaxed Datetime: 11/24/2018 06:00 Labor Evaluation Frequency: NONE Monitor Mode: External Pattern: Normal: <= 5 Contractions in 10 Minutes Resting Tone [place]: Relaxed Datetime: 11/24/2018 05:00 Labor Evaluation Frequency: 2/HR Monitor Mode: External Duration (sec)2399: 40-60 Quality: Mild Pattern: Normal: <= 5 Contractions in 10 Minutes Resting Tone [place]: Relaxed Datetime: 11/24/2018 04:00 Labor Evaluation Frequency: 5/HR INVERTED Monitor Mode: External Duration (sec)2399: 40-120 Quality: Mild Pattern: Normal: <= 5 Contractions in 10 Minutes Resting Tone [place]: Relaxed Datetime: 11/24/2018 03:00 Labor Evaluation Frequency: NONE Monitor Mode: External Pattern: Normal: <= 5 Contractions in 10 Minutes Resting Tone [place]: Relaxed Datetime: 11/24/2018 02:00 Labor Evaluation Frequency: IRRIT Monitor Mode: External Quality: Mild Pattern: Normal: <= 5 Contractions in 10 Minutes Resting Tone [place]: Relaxed Datetime: 11/24/2018 01:16 Heart Rate FHR Baseline Rate: 140 Monitor Mode: External US FHR Baseline Changes: No Baseline Change Variability: Moderate 6-25 bpm Accelerations: 15X15 Decelerations: None Category: Category I Datetime: 11/24/2018 01:00 Labor Evaluation Frequency: 1/HR Monitor Mode: External Duration (sec)2399: 70 Quality: Mild Pattern: Normal: <= 5 Contractions in 10 Minutes Resting Tone [place]: Relaxed Datetime: 11/24/2018 00:54 Assessment Type: Ongoing Assessment Maternal Assessment Level of Consciousness: Fully Conscious DTR's/Clonus: DTRs 2+; No Clonus Headache: Denies Blurred Vision: No Respiratory Effort: Unlabored; Regular Rhythm; Equal Expansion Nausea/Vomiting: Denies RUQ Epigastric Pain: Denies Lower Extremities Edema: None Degree: None Upper Extremities Edema: None Degree: None Facial Edema: None Fall Risk Assessment History of Falling: (0) No Secondary Diagnosis: (0) No Ambulatory Aid: (0) Bedrest/Nurse Assist IV Therapy: (0) No Gait: (0) Normal/Bedrest/Immobile Mental Status: (0) Oriented to Own Ability Fall Score: 0 Fall Risk Score Definition: No Risk: No action required Pain Presence: None/Denies Datetime: 11/24/2018 00:00 Labor Evaluation Frequency: IRRIT Monitor Mode: External Quality: Mild Pattern: Normal: <= 5 Contractions in 10 Minutes Resting Tone [place]: Relaxed Datetime: 11/23/2018 23:00 Labor Evaluation Frequency: NONE Monitor Mode: External Pattern: Normal: <= 5 Contractions in 10 Minutes Resting Tone [place]: Relaxed Datetime: 11/23/2018 22:00 Labor Evaluation Frequency: 2/HR Monitor Mode: External Duration (sec)2399: 40-70 Quality: Mild Pattern: Normal: <= 5 Contractions in 10 Minutes Resting Tone [place]: Relaxed Datetime: 11/23/2018 21:00 Labor Evaluation Frequency: NONE Monitor Mode: External Pattern: Normal: <= 5 Contractions in 10 Minutes Resting Tone [place]: Relaxed Datetime: 11/23/2018 20:00 Labor Evaluation Frequency: 1/HR Monitor Mode: External Duration (sec)2399: 70 Quality: Mild Pattern: Normal: <= 5 Contractions in 10 Minutes Resting Tone [place]: Relaxed Datetime: 11/23/2018 18:45 Labor Evaluation Frequency: 0 Monitor Mode: External Pattern: Normal: <= 5 Contractions in 10 Minutes Resting Tone [place]: Relaxed Datetime: 11/23/2018 17:52 Pain Assessment Pain Scale: 5 Pain Presence: Chronic Pain Type: Burning Pain Location: Other (Annotations: heartburn) Pain Goal: 3 Datetime: 11/23/2018 17:45 Labor Evaluation Frequency: x2 Monitor Mode: External Duration (sec)2399: 40-50 Quality: Mild Pattern: Normal: <= 5 Contractions in 10 Minutes Resting Tone [place]: Relaxed Datetime: 11/23/2018 16:45 Labor Evaluation Frequency: X1 Monitor Mode: External Duration (sec)2399: 40 Quality: Mild Pattern: Normal: <= 5 Contractions in 10 Minutes Resting Tone [place]: Relaxed Datetime: 11/23/2018 16:06 Pain Assessment Pain Scale: 0 Pain Presence: None/Denies Pain Type: N/A Datetime: 11/23/2018 15:45 Labor Evaluation Frequency: x3 Monitor Mode: External Duration (sec)2399: 40-50 Quality: Mild Pattern: Normal: <= 5 Contractions in 10 Minutes Resting Tone [place]: Relaxed Datetime: 11/23/2018 15:09 Contraction Comments: IRREGULAR UCS NOTED. PT DENIES ANY PAIN BUT STATES SHE FEELS A "SQUEEZING SEN SATION" ONCE OR TWICE PER HOUR. ENCOURAGED PO HYDRATION AND FREQUENT VOIDING AND TO NOTIFY ME IF FELT STRONGER OR MORE FREQUENTLY. PT VOICED UNDERSTANDING Pain Assessment Pain Scale: 0 Pain Presence: None/Denies Pain Type: N/A Datetime: 11/23/2018 14:45 Labor Evaluation Frequency: x1 Monitor Mode: External Duration (sec)2399: 60 Quality: Mild Pattern: Normal: <= 5 Contractions in 10 Minutes Resting Tone [place]: Relaxed Contraction Comments: denies feeling Datetime: 11/23/2018 13:45 Labor Evaluation Frequency: 0 Monitor Mode: External Pattern: Normal: <= 5 Contractions in 10 Minutes Resting Tone [place]: Relaxed Datetime: 11/23/2018 12:45 Labor Evaluation Frequency: 0 Monitor Mode: External Datetime: 11/23/2018 11:45 Labor Evaluation Frequency: x1 Monitor Mode: External Duration (sec)2399: 60 Quality: Mild Pattern: Normal: <= 5 Contractions in 10 Minutes Resting Tone [place]: Relaxed Datetime: 11/23/2018 10:45 Labor Evaluation Frequency: 0 Monitor Mode: External Pattern: Normal: <= 5 Contractions in 10 Minutes Resting Tone [place]: Relaxed Datetime: 11/23/2018 10:35 Monitor Mode: External Heart Rate FHR Baseline Rate: 145 Monitor Mode: External US FHR Baseline Changes: No Baseline Change Variability: Moderate 6-25 bpm Accelerations: 15X15 Decelerations: None Category: Category I Comments: NST reactive. NST complete Datetime: 11/23/2018 09:46 Comments: NST STARTED, STATES POSITIVE FM X2 Datetime: 11/23/2018 09:45 Labor Evaluation Frequency: 0 Monitor Mode: External Pattern: Normal: <= 5 Contractions in 10 Minutes Resting Tone [place]: Relaxed Datetime: 11/23/2018 08:45 Maternal Assessment Level of Consciousness: Fully Conscious Labor Evaluation Frequency: 0 Monitor Mode: External Datetime: 11/23/2018 07:45 Assessment Type: Ongoing Assessment Maternal Assessment Level of Consciousness: Fully Conscious Maternal Assessment Level of Consciousness: Fully Conscious DTR's/Clonus: No Clonus DTR's/Clonus: DTRs 2+; No Clonus Headache: Denies Headache: Denies Blurred Vision: No Respiratory Effort: Unlabored Respiratory Effort: Unlabored; Regular Rhythm; Equal Expansion Breath Sounds, Left: Clear and Equal Breath Sounds, Left: Clear and Equal Breath Sounds, Right: Clear and Equal Breath Sounds, Right: Clear and Equal Nausea/Vomiting: Denies RUQ Epigastric Pain: Denies Lower Extremities Edema: None Degree: None Upper Extremities Edema: None Facial Edema: None Fall Risk Assessment History of Falling: (0) No Secondary Diagnosis: (0) No Ambulatory Aid: (0) Bedrest/Nurse Assist IV Therapy: (0) No Gait: (0) Normal/Bedrest/Immobile Mental Status: (0) Oriented to Own Ability Fall Score: 0 Fall Risk Score Definition: No Risk: No action required Labor Evaluation Frequency: 0 Monitor Mode: External Contraction Comments: denies feeling UCs Comments: pt states positive movement Pain Presence: None/Denies Pain Type: N/A Datetime: 11/23/2018 07:00 Labor Evaluation Frequency: NONE Monitor Mode: External Pattern: Normal: <= 5 Contractions in 10 Minutes Resting Tone [place]: Relaxed Datetime: 11/23/2018 06:00 Labor Evaluation Frequency: 4/HR WITH IRRIT Monitor Mode: External Duration (sec)2399: 40-70 Quality: Mild Pattern: Normal: <= 5 Contractions in 10 Minutes Resting Tone [place]: Relaxed Datetime: 11/23/2018 05:00 Labor Evaluation Frequency: 3/HR INVERTED WITH IRRIT Monitor Mode: External Duration (sec)2399: 50 Quality: Mild Pattern: Normal: <= 5 Contractions in 10 Minutes Resting Tone [place]: Relaxed Datetime: 11/23/2018 04:00 Labor Evaluation Frequency: 6/HR WITH IRRIT Monitor Mode: External Duration (sec)2399: 40-60 Quality: Mild Pattern: Normal: <= 5 Contractions in 10 Minutes Resting Tone [place]: Relaxed Datetime: 11/23/2018 03:00 Labor Evaluation Frequency: 9/HR WITH IRRIT Monitor Mode: External Duration (sec)2399: 50-60 Quality: Mild Pattern: Normal: <= 5 Contractions in 10 Minutes Resting Tone [place]: Relaxed Datetime: 11/23/2018 02:00 Labor Evaluation Frequency: 16/HR WITH IRRIT Monitor Mode: External Duration (sec)2399: 40-80 Quality: Mild Pattern: Normal: <= 5 Contractions in 10 Minutes Resting Tone [place]: Relaxed Datetime: 11/23/2018 01:00 Labor Evaluation Frequency: 9/HR INVERTED Monitor Mode: External Duration (sec)2399: 40-60 Quality: Mild Pattern: Normal: <= 5 Contractions in 10 Minutes Resting Tone [place]: Relaxed Datetime: 11/23/2018 00:00 Labor Evaluation Frequency: 4/HR WITH IRRIT Monitor Mode: External Duration (sec)2399: 40-60 Quality: Mild Pattern: Normal: <= 5 Contractions in 10 Minutes Resting Tone [place]: Relaxed Datetime: 11/22/2018 23:00 Labor Evaluation Frequency: 3/HR WITH IRRIT Monitor Mode: External Quality: Mild Pattern: Normal: <= 5 Contractions in 10 Minutes Resting Tone [place]: Relaxed Datetime: 11/22/2018 22:00 Labor Evaluation Frequency: NONE Monitor Mode: External Pattern: Normal: <= 5 Contractions in 10 Minutes Resting Tone [place]: Relaxed Datetime: 11/22/2018 21:01 Labor Evaluation Frequency: 5/HR Monitor Mode: External Duration (sec)2399: 40-60 Quality: Mild Pattern: Normal: <= 5 Contractions in 10 Minutes Resting Tone [place]: Relaxed Heart Rate FHR Baseline Rate: 140 Monitor Mode: External US FHR Baseline Changes: No Baseline Change Variability: Moderate 6-25 bpm Accelerations: 15X15 Decelerations: None Category: Category I Datetime: 11/22/2018 20:22 Assessment Type: Ongoing Assessment Maternal Assessment Level of Consciousness: Fully Conscious Maternal Assessment Level of Consciousness: Fully Conscious DTR's/Clonus: DTRs 2+; No Clonus Headache: Denies Blurred Vision: No Respiratory Effort: Unlabored; Regular Rhythm; Equal Expansion Nausea/Vomiting: Denies RUQ Epigastric Pain: Denies Lower Extremities Edema: None Upper Extremities Edema: None Facial Edema: None Fall Risk Assessment History of Falling: (0) No Secondary Diagnosis: (0) No Ambulatory Aid: (0) Bedrest/Nurse Assist IV Therapy: (0) No Gait: (0) Normal/Bedrest/Immobile Mental Status: (0) Oriented to Own Ability Fall Score: 0 Fall Risk Score Definition: No Risk: No action required Pain Presence: None/Denies Vaginal Exam Membrane Status: Intact Datetime: 11/22/2018 20:00 Labor Evaluation Frequency: 9/HR Monitor Mode: External Duration (sec)2399: 40-80 Quality: Mild Pattern: Normal: <= 5 Contractions in 10 Minutes Resting Tone [place]: Relaxed Datetime: 11/22/2018 17:58 Labor Evaluation Frequency: 0 Monitor Mode: External Pattern: Normal: <= 5 Contractions in 10 Minutes Resting Tone [place]: Relaxed Comments: REMOVED PER ORDER Pain Assessment Pain Scale: 0 Pain Presence: None/Denies Pain Type: N/A Pain Goal: 3 Pain Relief Measures: Comfort Measures Datetime: 11/22/2018 17:00 Labor Evaluation Frequency: 0 Monitor Mode: External Pattern: Normal: <= 5 Contractions in 10 Minutes Resting Tone [place]: Relaxed Comments: REMOVED PER ORDER Pain Assessment Pain Scale: 0 Pain Presence: None/Denies Pain Type: N/A Pain Goal: 3 Pain Relief Measures: Comfort Measures Datetime: 11/22/2018 15:59 Labor Evaluation Frequency: 6-8 Monitor Mode: External Duration (sec)2399: 30-50 Quality: Mild Pattern: Normal: <= 5 Contractions in 10 Minutes Resting Tone [place]: Relaxed Comments: REMOVED PER ORDER Pain Assessment Pain Scale: 0 Pain Presence: None/Denies Pain Type: N/A Pain Goal: 3 Pain Relief Measures: Comfort Measures Datetime: 11/22/2018 15:01 Labor Evaluation Frequency: X1 Monitor Mode: External Duration (sec)2399: 60 Quality: Mild Pattern: Normal: <= 5 Contractions in 10 Minutes Resting Tone [place]: Relaxed Comments: REMOVED PER ORDER Pain Assessment Pain Scale: 0 Pain Presence: None/Denies Pain Type: N/A Pain Goal: 3 Pain Relief Measures: Comfort Measures Datetime: 11/22/2018 13:56 Labor Evaluation Frequency: X2 Monitor Mode: External Duration (sec)2399: 30-50 Quality: Mild Pattern: Normal: <= 5 Contractions in 10 Minutes Resting Tone [place]: Relaxed Comments: REMOVED PER ORDER Pain Assessment Pain Scale: 0 Pain Presence: None/Denies Pain Type: N/A Pain Goal: 3 Pain Relief Measures: Comfort Measures Datetime: 11/22/2018 13:01 Labor Evaluation Frequency: 0 Monitor Mode: External Pattern: Normal: <= 5 Contractions in 10 Minutes Resting Tone [place]: Relaxed Comments: REMOVED PER ORDER Pain Assessment Pain Scale: 0 Pain Presence: None/Denies Pain Type: N/A Pain Goal: 3 Pain Relief Measures: Comfort Measures Datetime: 11/22/2018 11:57 Labor Evaluation Frequency: 0 Monitor Mode: External Pattern: Normal: <= 5 Contractions in 10 Minutes Resting Tone [place]: Relaxed Comments: REMOVED PER ORDER Pain Assessment Pain Scale: 0 Pain Presence: None/Denies Pain Type: N/A Pain Goal: 3 Pain Relief Measures: Comfort Measures Datetime: 11/22/2018 11:05 Labor Evaluation Frequency: 0 Monitor Mode: External Pattern: Normal: <= 5 Contractions in 10 Minutes Resting Tone [place]: Relaxed Comments: REMOVED PER ORDER Pain Assessment Pain Scale: 0 Pain Presence: None/Denies Pain Type: N/A Pain Goal: 3 Pain Relief Measures: Comfort Measures Datetime: 11/22/2018 10:15 Labor Evaluation Frequency: 3-5 Monitor Mode: External Duration (sec)2399: 40-60 Quality: Mild Pattern: Normal: <= 5 Contractions in 10 Minutes Resting Tone [place]: Relaxed Contraction Comments: uterine irritability noted. Heart Rate FHR Baseline Rate: 145 Monitor Mode: External US FHR Baseline Changes: No Baseline Change Variability: Moderate 6-25 bpm Accelerations: 15X15 Decelerations: None Category: Category I Datetime: 11/22/2018 09:28 Comments: REMOVED PER ORDER Datetime: 11/22/2018 09:18 Maternal Assessment Level of Consciousness: Fully Conscious Headache: Denies Blurred Vision: No Nausea/Vomiting: Denies RUQ Epigastric Pain: Denies Labor Evaluation Frequency: 5-7 Monitor Mode: External Duration (sec)2399: 50-70 Quality: Mild Pattern: Normal: <= 5 Contractions in 10 Minutes Resting Tone [place]: Relaxed Heart Rate FHR Baseline Rate: 140 Monitor Mode: External US Variability: Moderate 6-25 bpm Accelerations: 10X10 Decelerations: None Category: Category I Pain Assessment Pain Scale: 1 Pain Presence: Intermittent Pain Type: Cramping Pain Location: Abdomen Pain Goal: 3 Pain Relief Measures: Comfort Measures Datetime: 11/22/2018 08:10 Assessment Type: Ongoing Assessment Maternal Assessment Level of Consciousness: Fully Conscious DTR's/Clonus: DTRs 2+; No Clonus Headache: Denies Blurred Vision: No Respiratory Effort: Unlabored; Regular Rhythm; Equal Expansion Breath Sounds, Left: Clear and Equal Breath Sounds, Right: Clear and Equal Nausea/Vomiting: Denies RUQ Epigastric Pain: Denies Lower Extremities Edema: None Upper Extremities Edema: None Facial Edema: None Fall Risk Assessment History of Falling: (0) No Secondary Diagnosis: (0) No Ambulatory Aid: (0) Bedrest/Nurse Assist IV Therapy: (0) No Gait: (0) Normal/Bedrest/Immobile Mental Status: (0) Oriented to Own Ability Fall Score: 0 Fall Risk Score Definition: No Risk: No action required Datetime: 11/22/2018 07:38 Stage of : Antepartum Datetime: 11/22/2018 06:39 Stage of : Antepartum Maternal Assessment Level of Consciousness: Fully Conscious Labor Evaluation Frequency: 3-6 Monitor Mode: External Duration (sec)2399: 30-60 Quality: Mild Pattern: Normal: <= 5 Contractions in 10 Minutes Resting Tone [place]: Relaxed Contraction Comments: Pt got up to BR, then positioned onrt side tilt to releive pressure on cervix sitting high fowlers. Pain Presence: Intermittent Pain Type: Cramping Pain Location: Abdomen Pain Relief Measures: Comfort Measures Vaginal Bleeding: None Datetime: 11/22/2018 05:46 Stage of : Antepartum Maternal Assessment Level of Consciousness: Fully Conscious Temperature Route: Oral Labor Evaluation Frequency: 0/hr Monitor Mode: External Contraction Comments: [place] changed Pain Presence: None/Denies Vaginal Bleeding: None Datetime: 11/22/2018 04:20 Stage of : Antepartum Maternal Assessment Level of Consciousness: Fully Conscious Labor Evaluation Frequency: 0/hr Monitor Mode: External Pain Presence: None/Denies Vaginal Bleeding: None Datetime: 11/22/2018 03:20 Stage of : Antepartum Maternal Assessment Level of Consciousness: Fully Conscious Labor Evaluation Frequency: 0/hr Monitor Mode: External Pain Presence: None/Denies Pain Assessment Comments: Sleeping Vaginal Bleeding: None Datetime: 11/22/2018 02:20 Stage of : Antepartum Maternal Assessment Level of Consciousness: Fully Conscious Labor Evaluation Frequency: 0/hr Monitor Mode: External Pain Presence: None/Denies Pain Assessment Comments: Pt sleeping, did not awaken when rounding. Vaginal Bleeding: None Datetime: 11/22/2018 01:15 Stage of : Antepartum Maternal Assessment Level of Consciousness: Fully Conscious Labor Evaluation Frequency: 0/hr Monitor Mode: External Pain Presence: None/Denies Pain Assessment Comments: Pt sleeping did not awaken when hourly rounding. Vaginal Bleeding: None Datetime: 11/22/2018 00:15 Stage of : Antepartum Maternal Assessment Level of Consciousness: Fully Conscious Labor Evaluation Frequency: 0/hr Monitor Mode: External Pain Presence: None/Denies Vaginal Bleeding: None Datetime: 11/21/2018 23:16 Stage of : Antepartum Maternal Assessment Level of Consciousness: Fully Conscious DTR's/Clonus: DTRs 2+; No Clonus Headache: Denies Breath Sounds, Left: Clear and Equal Breath Sounds, Right: Clear and Equal Nausea/Vomiting: Denies RUQ Epigastric Pain: Denies Temperature Route: Oral Labor Evaluation Frequency: 0/hr Monitor Mode: External Heart Rate FHR Baseline Rate: 145 Monitor Mode: External US Variability: Moderate 6-25 bpm Accelerations: 15X15 Category: Category I Comments: Reactive NST on Fetus A Pain Presence: None/Denies Vaginal Bleeding: None Datetime: 11/21/2018 23:00 Stage of : Antepartum Datetime: 11/21/2018 22:50 Stage of : Antepartum Maternal Assessment Level of Consciousness: Fully Conscious DTR's/Clonus: DTRs 2+; No Clonus Headache: Denies Breath Sounds, Left: Clear and Equal Breath Sounds, Right: Clear and Equal Nausea/Vomiting: Denies RUQ Epigastric Pain: Denies Labor Evaluation Frequency: 0/hr Monitor Mode: External Heart Rate FHR Baseline Rate: 145 Monitor Mode: External US Variability: Moderate 6-25 bpm Accelerations: 15X15 Category: Category I Pain Presence: None/Denies Vaginal Bleeding: None Datetime: 11/21/2018 22:20 Stage of : Antepartum Maternal Assessment Level of Consciousness: Fully Conscious DTR's/Clonus: DTRs 2+; No Clonus Headache: Denies Breath Sounds, Left: Clear and Equal Breath Sounds, Right: Clear and Equal Nausea/Vomiting: Denies RUQ Epigastric Pain: Denies Labor Evaluation Frequency: 0/hr Monitor Mode: External Heart Rate FHR Baseline Rate: 145 Monitor Mode: External US Variability: Moderate 6-25 bpm Accelerations: 15X15 Comments: EFM on for NST Pain Presence: None/Denies Vaginal Bleeding: None Datetime: 11/21/2018 21:50 Stage of : Antepartum Maternal Assessment Level of Consciousness: Fully Conscious DTR's/Clonus: DTRs 2+; No Clonus Headache: Denies Breath Sounds, Left: Clear and Equal Breath Sounds, Right: Clear and Equal Nausea/Vomiting: Denies RUQ Epigastric Pain: Denies Labor Evaluation Frequency: 0/hr Monitor Mode: External Pain Presence: None/Denies Vaginal Bleeding: None Datetime: 11/21/2018 20:50 Stage of : Antepartum Maternal Assessment Level of Consciousness: Fully Conscious DTR's/Clonus: DTRs 2+; No Clonus Headache: Denies Breath Sounds, Left: Clear and Equal Breath Sounds, Right: Clear and Equal Nausea/Vomiting: Denies RUQ Epigastric Pain: Denies Labor Evaluation Frequency: 0/hr Monitor Mode: External Pain Presence: None/Denies Vaginal Bleeding: None Datetime: 11/21/2018 19:53 Stage of : Antepartum Assessment Type: Ongoing Assessment Maternal Assessment Level of Consciousness: Fully Conscious Maternal Assessment Level of Consciousness: Fully Conscious DTR's/Clonus: DTRs 2+; No Clonus Headache: Denies Headache: Denies Blurred Vision: No Respiratory Effort: Unlabored; Regular Rhythm; Equal Expansion Breath Sounds, Left: Clear and Equal Breath Sounds, Right: Clear and Equal Nausea/Vomiting: Denies Nausea/Vomiting: Denies RUQ Epigastric Pain: Denies RUQ Epigastric Pain: Denies Lower Extremities Edema: None Degree: None Upper Extremities Edema: None Degree: None Facial Edema: None Temperature Route: Oral Fall Risk Assessment History of Falling: (0) No Secondary Diagnosis: (0) No Ambulatory Aid: (0) Bedrest/Nurse Assist IV Therapy: (0) No Gait: (0) Normal/Bedrest/Immobile Mental Status: (0) Oriented to Own Ability Fall Score: 0 Fall Risk Score Definition: No Risk: No action required Labor Evaluation Frequency: 0/hr Monitor Mode: External Pain Presence: None/Denies Vaginal Bleeding: None Datetime: 11/21/2018 19:02 Stage of : Antepartum Maternal Assessment Level of Consciousness: Fully Conscious Headache: Denies Nausea/Vomiting: Denies RUQ Epigastric Pain: Denies Labor Evaluation Frequency: 0/hr Monitor Mode: External Pain Presence: None/Denies Vaginal Bleeding: None Datetime: 11/21/2018 18:41 Maternal Assessment Level of Consciousness: Fully Conscious Headache: Denies Blurred Vision: No Nausea/Vomiting: Denies Pain Presence: None/Denies Datetime: 11/21/2018 18:11 Stage of : Antepartum Maternal Assessment Level of Consciousness: Fully Conscious Headache: Denies Nausea/Vomiting: Denies RUQ Epigastric Pain: Denies Labor Evaluation Frequency: 0/hr Monitor Mode: External Pain Presence: None/Denies Vaginal Bleeding: None Datetime: 11/21/2018 17:41 Maternal Assessment Level of Consciousness: Fully Conscious Headache: Denies Blurred Vision: No Respiratory Effort: Unlabored Nausea/Vomiting: Denies RUQ Epigastric Pain: Denies Pain Presence: None/Denies Datetime: 11/21/2018 17:06 Stage of : Antepartum Maternal Assessment Level of Consciousness: Fully Conscious Headache: Denies Nausea/Vomiting: Denies RUQ Epigastric Pain: Denies Labor Evaluation Frequency: 0/hr Monitor Mode: External Pain Presence: None/Denies Vaginal Bleeding: None Datetime: 11/21/2018 16:36 Stage of : Antepartum Maternal Assessment Level of Consciousness: Fully Conscious Headache: Denies Nausea/Vomiting: Denies RUQ Epigastric Pain: Denies Resting Tone [place]: Relaxed Pain Assessment Pain Scale: 0 Pain Presence: None/Denies Vaginal Bleeding: None Datetime: 11/21/2018 16:13 Stage of : Antepartum Maternal Assessment Level of Consciousness: Fully Conscious DTR's/Clonus: DTRs 2+ Headache: Denies Nausea/Vomiting: Denies RUQ Epigastric Pain: Denies Labor Evaluation Frequency: 0/hr Monitor Mode: External Pain Presence: None/Denies Vaginal Bleeding: None Datetime: 11/21/2018 14:52 Maternal Assessment Level of Consciousness: Fully Conscious Headache: Denies Blurred Vision: No Respiratory Effort: Unlabored Nausea/Vomiting: Denies RUQ Epigastric Pain: Denies Labor Evaluation Frequency: 0 Resting Tone [place]: Relaxed Pain Presence: None/Denies Datetime: 11/21/2018 14:20 Maternal Assessment Level of Consciousness: Fully Conscious Headache: Denies Blurred Vision: No Respiratory Effort: Unlabored Nausea/Vomiting: Denies RUQ Epigastric Pain: Denies Pain Presence: Intermittent Datetime: 11/21/2018 13:36 Maternal Assessment Level of Consciousness: Fully Conscious Headache: Denies Blurred Vision: No Respiratory Effort: Unlabored Nausea/Vomiting: Denies RUQ Epigastric Pain: Denies Pain Presence: None/Denies Datetime: 11/21/2018 13:25 Stage of : Antepartum Maternal Assessment Level of Consciousness: Fully Conscious DTR's/Clonus: DTRs 2+ Headache: Denies Nausea/Vomiting: Denies RUQ Epigastric Pain: Denies Labor Evaluation Frequency: 0/hr Monitor Mode: External Resting Tone [place]: Relaxed Pain Presence: None/Denies Vaginal Bleeding: None Datetime: 11/21/2018 12:30 Maternal Assessment Level of Consciousness: Fully Conscious Headache: Denies Blurred Vision: No Respiratory Effort: Unlabored Nausea/Vomiting: Denies RUQ Epigastric Pain: Denies Labor Evaluation Frequency: 0/hr Monitor Mode: External Resting Tone [place]: Relaxed Pain Presence: None/Denies Datetime: 11/21/2018 11:00 Stage of : Antepartum Maternal Assessment Level of Consciousness: Fully Conscious DTR's/Clonus: DTRs 2+ Headache: Denies Breath Sounds, Left: Clear and Equal Breath Sounds, Right: Clear and Equal Nausea/Vomiting: Denies RUQ Epigastric Pain: Denies Labor Evaluation Frequency: 0/hr Monitor Mode: External Pain Assessment Pain Scale: 0 Pain Presence: None/Denies Vaginal Bleeding: None Datetime: 11/21/2018 09:54 Maternal Assessment Level of Consciousness: Fully Conscious Headache: Denies Blurred Vision: No Respiratory Effort: Unlabored Nausea/Vomiting: Denies RUQ Epigastric Pain: Denies Monitor Mode: External Resting Tone [place]: Relaxed Pain Presence: None/Denies Datetime: 11/21/2018 09:19 Maternal Assessment Level of Consciousness: Fully Conscious DTR's/Clonus: DTRs 2+ Headache: Denies Blurred Vision: No Respiratory Effort: Unlabored Nausea/Vomiting: Denies RUQ Epigastric Pain: Denies Pain Presence: None/Denies Datetime: 11/21/2018 08:49 Maternal Assessment Level of Consciousness: Fully Conscious Headache: Denies Blurred Vision: No Respiratory Effort: Unlabored Nausea/Vomiting: Denies RUQ Epigastric Pain: Denies Pain Presence: None/Denies Datetime: 11/21/2018 08:43 Pain Presence: None/Denies Datetime: 11/21/2018 08:09 Pain Presence: None/Denies Datetime: 11/21/2018 08:08 Labor Evaluation Frequency: 0/hr Monitor Mode: External Heart Rate FHR Baseline Rate: 130 Monitor Mode: External US Variability: Moderate 6-25 bpm Accelerations: 15X15 Decelerations: None Datetime: 11/21/2018 07:50 Stage of : Antepartum Temperature Route: Oral Datetime: 11/21/2018 07:30 Labor Evaluation Frequency: 0/hr Monitor Mode: External Resting Tone [place]: Relaxed Heart Rate FHR Baseline Rate: 130 Monitor Mode: External US Variability: Moderate 6-25 bpm Accelerations: 15X15 Comments: blue line Datetime: 11/21/2018 07:00 Labor Evaluation Frequency: NONE Monitor Mode: External Resting Tone [place]: Relaxed Heart Rate FHR Baseline Rate: 130 Monitor Mode: External US Variability: Moderate 6-25 bpm Accelerations: 15X15 Decelerations: None Category: Category I Pain Presence: None/Denies Pain Type: N/A Datetime: 11/21/2018 06:40 Stage of : Antepartum Datetime: 11/21/2018 06:06 Stage of : OB Triage Datetime: 11/21/2018 06:00 Maternal Assessment Level of Consciousness: Fully Conscious DTR's/Clonus: DTRs 2+; No Clonus Labor Evaluation Frequency: NONE Monitor Mode: External Resting Tone [place]: Relaxed Heart Rate FHR Baseline Rate: 120 Monitor Mode: External US Variability: Moderate 6-25 bpm Accelerations: 15X15 Decelerations: None Category: Category I Pain Presence: None/Denies Pain Type: N/A Datetime: 11/21/2018 05:50 Stage of : Antepartum Temperature Route: Oral Datetime: 11/21/2018 05:06 Stage of : Antepartum Datetime: 11/21/2018 05:00 Labor Evaluation Frequency: NONE Monitor Mode: External Resting Tone [place]: Relaxed Heart Rate FHR Baseline Rate: 130 Variability: Moderate 6-25 bpm Comments: NO RACING MOST OF HOUR DUE TO PT'S SLEEPING POSITION. Pain Presence: None/Denies Pain Type: N/A Pain Assessment Comments: PT SLEEPING SOUNDLY Datetime: 11/21/2018 04:00 Maternal Assessment Level of Consciousness: Fully Conscious DTR's/Clonus: DTRs 2+; No Clonus Labor Evaluation Frequency: NONE Monitor Mode: External Resting Tone [place]: Relaxed Heart Rate FHR Baseline Rate: 135 Monitor Mode: External US Variability: Moderate 6-25 bpm Accelerations: 15X15 Decelerations: None Category: Category I Pain Presence: None/Denies Pain Type: N/A Datetime: 11/21/2018 03:00 Labor Evaluation Frequency: NONE Monitor Mode: External Resting Tone [place]: Relaxed Heart Rate FHR Baseline Rate: 130 Monitor Mode: External US Variability: Moderate 6-25 bpm Accelerations: 15X15 Decelerations: None Category: Category I Pain Presence: None/Denies Pain Type: N/A Datetime: 11/21/2018 02:50 Monitor Mode: External US Datetime: 11/21/2018 02:00 DTR's/Clonus: DTRs 2+; No Clonus Labor Evaluation Frequency: NONE Monitor Mode: External Resting Tone [place]: Relaxed Heart Rate FHR Baseline Rate: 130 Monitor Mode: External US Variability: Moderate 6-25 bpm Accelerations: 15X15 Decelerations: None Category: Category I Pain Presence: None/Denies Pain Type: N/A Datetime: 11/21/2018 01:00 Labor Evaluation Frequency: NONE Monitor Mode: External Resting Tone [place]: Relaxed Heart Rate FHR Baseline Rate: 135 Monitor Mode: External US Variability: Moderate 6-25 bpm Accelerations: 15X15 Decelerations: None Category: Category I Pain Presence: None/Denies Pain Type: N/A Datetime: 11/21/2018 00:00 Maternal Assessment Level of Consciousness: Fully Conscious DTR's/Clonus: DTRs 2+; No Clonus Breath Sounds, Left: Clear and Equal Breath Sounds, Right: Clear and Equal Labor Evaluation Frequency: none Monitor Mode: External Resting Tone [place]: Relaxed Heart Rate FHR Baseline Rate: 130 Monitor Mode: External US Variability: Moderate 6-25 bpm Accelerations: 15X15 Decelerations: None Category: Category I Pain Presence: None/Denies Pain Type: N/A Datetime: 11/20/2018 23:00 Maternal Assessment Level of Consciousness: Fully Conscious DTR's/Clonus: DTRs 2+; No Clonus Breath Sounds, Left: Clear and Equal Breath Sounds, Right: Clear and Equal Labor Evaluation Frequency: NONE Monitor Mode: External Resting Tone [place]: Relaxed Heart Rate FHR Baseline Rate: 130 Monitor Mode: External US Variability: Moderate 6-25 bpm Accelerations: 15X15 Decelerations: None Category: Category I Pain Presence: None/Denies Pain Type: N/A Datetime: 11/20/2018 22:00 DTR's/Clonus: DTRs 2+; No Clonus Labor Evaluation Frequency: NONE Monitor Mode: External Resting Tone [place]: Relaxed Heart Rate FHR Baseline Rate: 135 Monitor Mode: External US Variability: Moderate 6-25 bpm Accelerations: 15X15 Decelerations: None Category: Category I Pain Presence: None/Denies Pain Type: N/A Datetime: 11/20/2018 21:00 Labor Evaluation Frequency: NONE Monitor Mode: External Resting Tone [place]: Relaxed Heart Rate FHR Baseline Rate: 125 Monitor Mode: External US Variability: Moderate 6-25 bpm Accelerations: 15X15 Decelerations: None Category: Category I Pain Presence: None/Denies Pain Type: N/A Datetime: 11/20/2018 20:00 Labor Evaluation Frequency: NONE Monitor Mode: External Resting Tone [place]: Relaxed Heart Rate FHR Baseline Rate: 130 Monitor Mode: External US Variability: Moderate 6-25 bpm Accelerations: 15X15 Decelerations: None Category: Category I Pain Presence: None/Denies Pain Type: N/A Datetime: 11/20/2018 19:54 Monitor Mode: External US Datetime: 11/20/2018 19:50 Stage of : Antepartum Assessment Type: Ongoing Assessment Maternal Assessment Level of Consciousness: Fully Conscious DTR's/Clonus: DTRs 2+; No Clonus Headache: Denies Blurred Vision: No Respiratory Effort: Unlabored; Regular Rhythm; Equal Expansion Breath Sounds, Left: Clear and Equal Breath Sounds, Right: Clear and Equal Nausea/Vomiting: Denies RUQ Epigastric Pain: Denies Lower Extremities Edema: None Degree: None Upper Extremities Edema: None Degree: None Facial Edema: None Temperature Route: Oral Fall Risk Assessment History of Falling: (0) No Secondary Diagnosis: (0) No Ambulatory Aid: (0) Bedrest/Nurse Assist IV Therapy: (0) No Gait: (0) Normal/Bedrest/Immobile Mental Status: (0) Oriented to Own Ability Fall Score: 0 Fall Risk Score Definition: No Risk: No action required Monitor Mode: External Contraction Comments: PT DENIES CRAMPING Monitor Mode: External US Comments: PT STATES + FM Pain Presence: None/Denies Pain Type: N/A Vaginal Exam Membrane Status: Intact Vaginal Bleeding: None Datetime: 11/20/2018 19:25 Stage of : Antepartum Datetime: 11/20/2018 19:00 Stage of : Antepartum Maternal Assessment Level of Consciousness: Fully Conscious DTR's/Clonus: DTRs 1+ Headache: Denies Breath Sounds, Left: Clear and Equal Breath Sounds, Right: Clear and Equal Nausea/Vomiting: Denies RUQ Epigastric Pain: Denies Labor Evaluation Frequency: 0 Monitor Mode: External Resting Tone [place]: Relaxed Heart Rate FHR Baseline Rate: 130 Monitor Mode: External US FHR Baseline Changes: No Baseline Change Variability: Moderate 6-25 bpm Accelerations: 15X15 Decelerations: None Pain Assessment Pain Scale: 0 Datetime: 11/20/2018 18:27 Monitor Mode: External Monitor Mode: External US Datetime: 11/20/2018 18:00 Stage of : Antepartum Maternal Assessment Level of Consciousness: Fully Conscious DTR's/Clonus: DTRs 1+ Headache: Denies Breath Sounds, Left: Clear and Equal Breath Sounds, Right: Clear and Equal Nausea/Vomiting: Denies RUQ Epigastric Pain: Denies Labor Evaluation Frequency: 0 Monitor Mode: External Resting Tone [place]: Relaxed Heart Rate FHR Baseline Rate: 135 Monitor Mode: External US FHR Baseline Changes: No Baseline Change Variability: Moderate 6-25 bpm Accelerations: 15X15 Decelerations: None Pain Assessment Pain Scale: 0 Datetime: 11/20/2018 17:40 Stage of : Antepartum Datetime: 11/20/2018 17:00 Stage of : Antepartum Maternal Assessment Level of Consciousness: Fully Conscious DTR's/Clonus: DTRs 1+ Headache: Denies Breath Sounds, Left: Clear and Equal Breath Sounds, Right: Clear and Equal Nausea/Vomiting: Denies RUQ Epigastric Pain: Denies Labor Evaluation Frequency: 0 Monitor Mode: External Resting Tone [place]: Relaxed Heart Rate FHR Baseline Rate: 125 Monitor Mode: External US FHR Baseline Changes: No Baseline Change Variability: Moderate 6-25 bpm Accelerations: 15X15 Decelerations: None Pain Assessment Pain Scale: 0 Datetime: 11/20/2018 16:00 Stage of : Antepartum Maternal Assessment Level of Consciousness: Fully Conscious DTR's/Clonus: DTRs 1+ Headache: Denies Breath Sounds, Left: Clear and Equal Breath Sounds, Right: Clear and Equal Nausea/Vomiting: Denies RUQ Epigastric Pain: Denies Labor Evaluation Frequency: x2 Monitor Mode: External Duration (sec)2399: 50 Quality: Mild Resting Tone [place]: Relaxed Heart Rate FHR Baseline Rate: 125 Monitor Mode: External US FHR Baseline Changes: No Baseline Change Variability: Moderate 6-25 bpm Accelerations: 15X15 Decelerations: None Pain Assessment Pain Scale: 0 Datetime: 11/20/2018 15:00 Stage of : Antepartum Maternal Assessment Level of Consciousness: Fully Conscious DTR's/Clonus: DTRs 1+ Headache: Denies Breath Sounds, Left: Clear and Equal Breath Sounds, Right: Clear and Equal Nausea/Vomiting: Denies RUQ Epigastric Pain: Denies Labor Evaluation Frequency: x2 Monitor Mode: External Duration (sec)2399: 70 Quality: Mild Resting Tone [place]: Relaxed Heart Rate FHR Baseline Rate: 125 Monitor Mode: External US FHR Baseline Changes: No Baseline Change Variability: Moderate 6-25 bpm Accelerations: 15X15 Decelerations: None Pain Assessment Pain Scale: 0 Datetime: 11/20/2018 14:00 Stage of : Antepartum Maternal Assessment Level of Consciousness: Fully Conscious DTR's/Clonus: DTRs 1+ Headache: Denies Breath Sounds, Left: Clear and Equal Breath Sounds, Right: Clear and Equal Nausea/Vomiting: Denies RUQ Epigastric Pain: Denies Labor Evaluation Frequency: x2 Monitor Mode: External Duration (sec)2399: 70 Quality: Mild Resting Tone [place]: Relaxed Heart Rate FHR Baseline Rate: 125 Monitor Mode: External US FHR Baseline Changes: No Baseline Change Variability: Moderate 6-25 bpm Accelerations: 15X15 Decelerations: None Pain Assessment Pain Scale: 0 Datetime: 11/20/2018 13:00 Stage of : Antepartum Labor Evaluation Frequency: x2 Monitor Mode: External Duration (sec)2399: 70 Quality: Mild Resting Tone [place]: Relaxed Heart Rate FHR Baseline Rate: 120 Monitor Mode: External US FHR Baseline Changes: No Baseline Change Variability: Moderate 6-25 bpm Accelerations: 15X15 Decelerations: None Datetime: 11/20/2018 12:00 Stage of : Antepartum Maternal Assessment Level of Consciousness: Fully Conscious DTR's/Clonus: DTRs 1+ Headache: Denies Breath Sounds, Left: Clear and Equal Breath Sounds, Right: Clear and Equal Nausea/Vomiting: Denies RUQ Epigastric Pain: Denies Labor Evaluation Frequency: x2 Monitor Mode: External Duration (sec)2399: 60 Quality: Mild Resting Tone [place]: Relaxed Heart Rate FHR Baseline Rate: 120 Monitor Mode: External US FHR Baseline Changes: No Baseline Change Variability: Moderate 6-25 bpm Accelerations: 15X15 Decelerations: None Pain Assessment Pain Scale: 0 Pain Presence: None/Denies Pain Type: N/A Datetime: 11/20/2018 11:00 Stage of : Antepartum Labor Evaluation Frequency: x2 Monitor Mode: External Duration (sec)2399: 60 Quality: Mild Resting Tone [place]: Relaxed Heart Rate FHR Baseline Rate: 120 Monitor Mode: External US FHR Baseline Changes: No Baseline Change Variability: Moderate 6-25 bpm Accelerations: 15X15 Decelerations: None Datetime: 11/20/2018 10:51 Stage of : Antepartum Maternal Assessment Level of Consciousness: Fully Conscious DTR's/Clonus: DTRs 1+ Headache: Denies Breath Sounds, Left: Clear and Equal Breath Sounds, Right: Clear and Equal Nausea/Vomiting: Denies RUQ Epigastric Pain: Denies Labor Evaluation Frequency: 0 Monitor Mode: External Resting Tone [place]: Relaxed Monitor Mode: External US FHR Baseline Changes: No Baseline Change Variability: Moderate 6-25 bpm Accelerations: 15X15 Decelerations: None Pain Assessment Pain Scale: 0 Datetime: 11/20/2018 10:00 Stage of : Antepartum Maternal Assessment Level of Consciousness: Fully Conscious DTR's/Clonus: DTRs 1+ Headache: Denies Breath Sounds, Left: Clear and Equal Breath Sounds, Right: Clear and Equal Nausea/Vomiting: Denies RUQ Epigastric Pain: Denies Labor Evaluation Frequency: none Monitor Mode: External Resting Tone [place]: Relaxed Heart Rate FHR Baseline Rate: 120 Monitor Mode: External US FHR Baseline Changes: No Baseline Change Pain Assessment Pain Scale: 0 Pain Presence: None/Denies Pain Type: N/A Datetime: 11/20/2018 09:00 Stage of : Antepartum Labor Evaluation Frequency: none Monitor Mode: External Resting Tone [place]: Relaxed Heart Rate FHR Baseline Rate: 120 Monitor Mode: External US FHR Baseline Changes: No Baseline Change Variability: Moderate 6-25 bpm Accelerations: 10X10 Decelerations: None Datetime: 11/20/2018 08:00 Stage of : Antepartum Maternal Assessment Level of Consciousness: Fully Conscious DTR's/Clonus: DTRs 2+ Headache: Denies Breath Sounds, Left: Clear and Equal Breath Sounds, Right: Clear and Equal Nausea/Vomiting: Denies RUQ Epigastric Pain: Denies Labor Evaluation Frequency: none Monitor Mode: External Resting Tone [place]: Relaxed Heart Rate FHR Baseline Rate: 120 Monitor Mode: External US FHR Baseline Changes: No Baseline Change Variability: Moderate 6-25 bpm Accelerations: 10X10 Decelerations: None Pain Assessment Pain Scale: 0 Pain Presence: None/Denies Pain Type: N/A Datetime: 11/20/2018 07:35 Stage of : Antepartum Assessment Type: Transfer/Discharge Maternal Assessment Level of Consciousness: Fully Conscious DTR's/Clonus: DTRs 2+; No Clonus Headache: Denies Blurred Vision: No Respiratory Effort: Unlabored; Regular Rhythm; Equal Expansion Breath Sounds, Left: Clear and Equal Breath Sounds, Right: Clear and Equal Nausea/Vomiting: Denies RUQ Epigastric Pain: Denies Lower Extremities Edema: None Degree: None Upper Extremities Edema: None Degree: None Facial Edema: None Temperature Route: Oral Fall Risk Assessment History of Falling: (0) No Secondary Diagnosis: (0) No Ambulatory Aid: (0) Bedrest/Nurse Assist IV Therapy: (20) Yes Gait: (0) Normal/Bedrest/Immobile Mental Status: (0) Oriented to Own Ability Fall Score: 20 Fall Risk Score Definition: No Risk: No action required Pain Assessment Pain Scale: 0 Pain Presence: None/Denies Pain Type: N/A Datetime: 11/20/2018 07:26 Stage of : Antepartum Datetime: 11/20/2018 07:00 Labor Evaluation Frequency: none Monitor Mode: External Resting Tone [place]: Relaxed Heart Rate FHR Baseline Rate: 130 Monitor Mode: External US FHR Baseline Changes: No Baseline Change Variability: Moderate 6-25 bpm Accelerations: 15X15 Decelerations: None Category: Category I Datetime: 11/20/2018 06:00 Labor Evaluation Frequency: none Monitor Mode: External Resting Tone [place]: Relaxed Heart Rate FHR Baseline Rate: 125 Monitor Mode: External US FHR Baseline Changes: No Baseline Change Variability: Moderate 6-25 bpm Accelerations: 15X15 Decelerations: None Category: Category I Datetime: 11/20/2018 05:00 Labor Evaluation Frequency: none Monitor Mode: External Resting Tone [place]: Relaxed Heart Rate FHR Baseline Rate: 130 Monitor Mode: External US FHR Baseline Changes: No Baseline Change Variability: Moderate 6-25 bpm Accelerations: 15X15 Decelerations: None Category: Category I Datetime: 11/20/2018 04:00 Labor Evaluation Frequency: none Monitor Mode: External Resting Tone [place]: Relaxed Heart Rate FHR Baseline Rate: 130 Monitor Mode: External US FHR Baseline Changes: No Baseline Change Variability: Moderate 6-25 bpm Accelerations: 10X10 Decelerations: None Category: Category I Datetime: 11/20/2018 03:00 Labor Evaluation Frequency: none Monitor Mode: External Resting Tone [place]: Relaxed Heart Rate FHR Baseline Rate: 130 Monitor Mode: External US FHR Baseline Changes: No Baseline Change Variability: Moderate 6-25 bpm Accelerations: 10X10 Decelerations: None Category: Category I Datetime: 11/20/2018 02:00 Labor Evaluation Frequency: none Monitor Mode: External Resting Tone [place]: Relaxed Heart Rate FHR Baseline Rate: 135 Monitor Mode: External US FHR Baseline Changes: No Baseline Change Variability: Moderate 6-25 bpm Accelerations: 10X10 Decelerations: None Category: Category I Datetime: 11/20/2018 01:00 Labor Evaluation Frequency: none Monitor Mode: External Resting Tone [place]: Relaxed Heart Rate FHR Baseline Rate: 130 Monitor Mode: External US FHR Baseline Changes: No Baseline Change Variability: Moderate 6-25 bpm Accelerations: 10X10 Decelerations: None Category: Category I Datetime: 11/20/2018 00:00 Labor Evaluation Frequency: none Monitor Mode: External Resting Tone [place]: Relaxed Heart Rate FHR Baseline Rate: 130 Monitor Mode: External US FHR Baseline Changes: No Baseline Change Variability: Moderate 6-25 bpm Accelerations: 15X15 Decelerations: None Category: Category I Datetime: 11/19/2018 23:51 Stage of : Antepartum Temperature Route: Oral Pain Assessment Pain Scale: 0 Pain Presence: None/Denies Pain Goal: 0 Datetime: 11/19/2018 23:00 Labor Evaluation Frequency: none Monitor Mode: External Resting Tone [place]: Relaxed Heart Rate FHR Baseline Rate: 130 Monitor Mode: External US FHR Baseline Changes: No Baseline Change Variability: Moderate 6-25 bpm Accelerations: 15X15 Decelerations: None Category: Category I Datetime: 11/19/2018 22:00 Labor Evaluation Frequency: none Monitor Mode: External Resting Tone [place]: Relaxed Heart Rate FHR Baseline Rate: 130 Monitor Mode: External US FHR Baseline Changes: No Baseline Change Variability: Moderate 6-25 bpm Accelerations: 15X15 Decelerations: None Category: Category I Datetime: 11/19/2018 21:00 Labor Evaluation Frequency: none Monitor Mode: External Resting Tone [place]: Relaxed Heart Rate FHR Baseline Rate: 130 Monitor Mode: External US FHR Baseline Changes: No Baseline Change Variability: Moderate 6-25 bpm Accelerations: 15X15 Decelerations: None Category: Category I Datetime: 11/19/2018 20:00 Labor Evaluation Frequency: none Monitor Mode: External Resting Tone [place]: Relaxed Heart Rate FHR Baseline Rate: 130 Monitor Mode: External US FHR Baseline Changes: No Baseline Change Variability: Moderate 6-25 bpm Accelerations: 15X15 Decelerations: None Category: Category I Datetime: 11/19/2018 19:51 Assessment Type: Transfer/Discharge Maternal Assessment Level of Consciousness: Fully Conscious DTR's/Clonus: DTRs 2+; No Clonus Headache: Denies Blurred Vision: No Respiratory Effort: Unlabored; Regular Rhythm; Equal Expansion Breath Sounds, Left: Clear and Equal Breath Sounds, Right: Clear and Equal Nausea/Vomiting: Denies RUQ Epigastric Pain: Denies Lower Extremities Edema: None Degree: None Upper Extremities Edema: None Degree: None Facial Edema: None Fall Risk Assessment History of Falling: (0) No Secondary Diagnosis: (0) No Ambulatory Aid: (0) Bedrest/Nurse Assist IV Therapy: (20) Yes Gait: (0) Normal/Bedrest/Immobile Mental Status: (0) Oriented to Own Ability Fall Score: 20 Fall Risk Score Definition: No Risk: No action required Datetime: 11/19/2018 19:49 Stage of : Antepartum Temperature Route: Oral Pain Assessment Pain Scale: 0 Pain Presence: None/Denies Pain Goal: 0 Datetime: 11/19/2018 18:09 Labor Evaluation Frequency: 0 Monitor Mode: External Resting Tone [place]: Relaxed Heart Rate FHR Baseline Rate: 130 Monitor Mode: External US FHR Baseline Changes: No Baseline Change Variability: Moderate 6-25 bpm Accelerations: 15X15 Decelerations: None Category: Category I Datetime: 11/19/2018 16:57 Maternal Assessment Level of Consciousness: Fully Conscious DTR's/Clonus: DTRs 2+ Headache: Denies Blurred Vision: No Breath Sounds, Left: Clear and Equal Breath Sounds, Right: Clear and Equal Nausea/Vomiting: Denies RUQ Epigastric Pain: Denies Facial Edema: None Labor Evaluation Frequency: 1 Monitor Mode: External Duration (sec)2399: 60 Quality: Mild Resting Tone [place]: Relaxed Heart Rate FHR Baseline Rate: 120 Monitor Mode: External US FHR Baseline Changes: No Baseline Change Variability: Moderate 6-25 bpm Accelerations: 15X15 Decelerations: None Category: Category I Datetime: 11/19/2018 16:29 Labor Evaluation Frequency: 0 Monitor Mode: External Resting Tone [place]: Relaxed Heart Rate FHR Baseline Rate: 130 Monitor Mode: External US FHR Baseline Changes: No Baseline Change Variability: Moderate 6-25 bpm Accelerations: 15X15 Decelerations: None Category: Category I Datetime: 11/19/2018 16:03 Labor Evaluation Frequency: 1 Monitor Mode: External Duration (sec)2399: 100 Quality: Mild Resting Tone [place]: Relaxed Heart Rate FHR Baseline Rate: 130 FHR Baseline Changes: No Baseline Change Variability: Moderate 6-25 bpm Accelerations: 15X15 Decelerations: None Category: Category I Datetime: 11/19/2018 15:06 Labor Evaluation Frequency: 2 Monitor Mode: External Duration (sec)2399: 40 Quality: Mild Resting Tone [place]: Relaxed Heart Rate FHR Baseline Rate: 130 Monitor Mode: External US FHR Baseline Changes: No Baseline Change Variability: Moderate 6-25 bpm Accelerations: 15X15 Decelerations: None Category: Category I Datetime: 11/19/2018 14:10 Maternal Assessment Level of Consciousness: Fully Conscious DTR's/Clonus: DTRs 1+ Headache: Denies Blurred Vision: No Respiratory Effort: Unlabored Breath Sounds, Left: Clear and Equal Breath Sounds, Right: Clear and Equal Nausea/Vomiting: Denies RUQ Epigastric Pain: Denies Facial Edema: None Labor Evaluation Frequency: occasional Monitor Mode: External Quality: Mild Resting Tone [place]: Relaxed Heart Rate FHR Baseline Rate: 130 Monitor Mode: External US FHR Baseline Changes: No Baseline Change Variability: Moderate 6-25 bpm Accelerations: 15X15 Decelerations: None Category: Category I Datetime: 11/19/2018 12:04 Maternal Assessment Level of Consciousness: Fully Conscious DTR's/Clonus: DTRs 2+ Headache: Denies Blurred Vision: No Respiratory Effort: Unlabored Breath Sounds, Left: Clear and Equal Breath Sounds, Right: Clear and Equal Nausea/Vomiting: Denies RUQ Epigastric Pain: Denies Facial Edema: None Labor Evaluation Frequency: 0 Monitor Mode: External Resting Tone [place]: Relaxed Heart Rate FHR Baseline Rate: 140 FHR Baseline Changes: No Baseline Change Variability: Moderate 6-25 bpm Accelerations: 15X15 Decelerations: None Category: Category I Datetime: 11/19/2018 11:03 Maternal Assessment Level of Consciousness: Fully Conscious DTR's/Clonus: DTRs 2+ Headache: Denies Blurred Vision: No Nausea/Vomiting: Denies RUQ Epigastric Pain: Denies Facial Edema: None Labor Evaluation Frequency: 0 Monitor Mode: External Resting Tone [place]: Relaxed Heart Rate FHR Baseline Rate: 140 Monitor Mode: External US FHR Baseline Changes: No Baseline Change Variability: Moderate 6-25 bpm Accelerations: 15X15 Decelerations: None Category: Category I Pain Presence: None/Denies Datetime: 11/19/2018 09:42 Comments: loc Datetime: 11/19/2018 08:22 Labor Evaluation Frequency: 0 Monitor Mode: External Resting Tone [place]: Relaxed Heart Rate FHR Baseline Rate: 135 Monitor Mode: External US FHR Baseline Changes: No Baseline Change Variability: Moderate 6-25 bpm Accelerations: 10X10 Decelerations: None Category: Category I Datetime: 11/19/2018 07:26 Assessment Type: Ongoing Assessment Maternal Assessment Level of Consciousness: Fully Conscious DTR's/Clonus: DTRs 2+; No Clonus Headache: Denies Blurred Vision: No Respiratory Effort: Unlabored; Regular Rhythm; Equal Expansion Breath Sounds, Left: Clear and Equal Breath Sounds, Right: Clear and Equal Nausea/Vomiting: Denies RUQ Epigastric Pain: Denies Facial Edema: None Fall Risk Assessment History of Falling: (0) No Secondary Diagnosis: (0) No Ambulatory Aid: (0) Bedrest/Nurse Assist IV Therapy: (20) Yes Gait: (0) Normal/Bedrest/Immobile Mental Status: (0) Oriented to Own Ability Fall Score: 20 Fall Risk Score Definition: No Risk: No action required Datetime: 11/19/2018 07:25 Labor Evaluation Frequency: 0 Monitor Mode: External Resting Tone [place]: Relaxed Heart Rate FHR Baseline Rate: 130 FHR Baseline Changes: No Baseline Change Variability: Moderate 6-25 bpm Accelerations: 15X15 Decelerations: None Category: Category I Pain Presence: Intermittent Pain Type: Cramping Pain Assessment Comments: just uncomfortabl Datetime: 11/19/2018 05:54 Stage of : Antepartum Monitor Mode: External Quality: Mild Pattern: Normal: <= 5 Contractions in 10 Minutes Resting Tone [place]: Relaxed Heart Rate FHR Baseline Rate: 135 Monitor Mode: External US FHR Baseline Changes: No Baseline Change Variability: Moderate 6-25 bpm Accelerations: 15X15 Decelerations: None Category: Category I Pain Presence: None/Denies Datetime: 11/19/2018 04:55 Stage of : Antepartum Heart Rate FHR Baseline Rate: 140 Monitor Mode: External US Datetime: 11/19/2018 04:23 Assessment Type: Admission Assessment Vaginal Bleeding: None Maternal Assessment Level of Consciousness: Fully Conscious DTR's/Clonus: DTRs 2+; No Clonus Headache: Denies Blurred Vision: No Respiratory Effort: Unlabored; Regular Rhythm; Equal Expansion Breath Sounds, Left: Clear and Equal Breath Sounds, Right: Clear and Equal Nausea/Vomiting: Denies RUQ Epigastric Pain: Denies Facial Edema: None Fall Risk Assessment History of Falling: (0) No Secondary Diagnosis: (0) No Ambulatory Aid: (0) Bedrest/Nurse Assist Gait: (0) Normal/Bedrest/Immobile Mental Status: (0) Oriented to Own Ability Datetime: 11/19/2018 04:05 Stage of : OB Triage Heart Rate FHR Baseline Rate: 130 Monitor Mode: External US FHR Baseline Changes: No Baseline Change Variability: Moderate 6-25 bpm Accelerations: 15X15 Decelerations: None Category: Category I Datetime: 11/19/2018 03:38 Stage of : OB Triage Heart Rate FHR Baseline Rate: 135 Monitor Mode: External [place] Variability: Moderate 6-25 bpm Accelerations: 15X15 Decelerations: None Category: Category I Datetime: 11/19/2018 03:05 Stage of : OB Triage Monitor Mode: External Quality: Mild Pattern: Normal: <= 5 Contractions in 10 Minutes Resting Tone [place]: Relaxed Monitor Mode: External US FHR Baseline Changes: No Baseline Change Variability: Moderate 6-25 bpm Accelerations: 15X15 Decelerations: None Category: Category I Vaginal Exam Membrane Status: Intact Datetime: 11/19/2018 01:40 Stage of : OB Triage Heart Rate FHR Baseline Rate: 130 FHR Baseline Changes: No Baseline Change Variability: Moderate 6-25 bpm Accelerations: 15X15 Decelerations: None Category: Category I Datetime: 11/19/2018 00:47 Monitor Mode: External Quality: Mild Pattern: Normal: <= 5 Contractions in 10 Minutes Resting Tone [place]: Relaxed Heart Rate FHR Baseline Rate: 130 Monitor Mode: External US FHR Baseline Changes: No Baseline Change Variability: Moderate 6-25 bpm Accelerations: 15X15 Decelerations: None Category: Category I Datetime: 11/18/2018 23:57 Quality: Mild Pattern: Normal: <= 5 Contractions in 10 Minutes Resting Tone [place]: Relaxed Heart Rate FHR Baseline Rate: 135 Monitor Mode: External US FHR Baseline Changes: No Baseline Change Variability: Moderate 6-25 bpm Accelerations: 15X15 Decelerations: None Category: Category I Datetime: 11/18/2018 23:51 EGA: 30.4 Datetime: 10/28/2018 19:28 Fall Score: 0 Fall Risk Score Definition: No Risk: No action required Datetime: 10/27/2018 19:33 Fall Score: 0 Fall Risk Score Definition: No Risk: No action required Datetime: 10/27/2018 07:36 Fall Score: 0 Fall Risk Score Definition: No Risk: No action required Datetime: 10/26/2018 12:48 Fall Score: 20 Fall Risk Score Definition: No Risk: No action required Datetime: 10/26/2018 11:01 Fall Score: 0 Fall Risk Score Definition: No Risk: No action required Datetime: 10/26/2018 11:00 EGA: 27.2 Datetime: 10/26/2018 10:59 EGA: 27.2
[2018-12-24] MEDS ORDERED: MAGNESIUM SULFATE 4 GM/100 ML 100 ML IVPB ONE (08:30)
[2018-12-24] MEDS ORDERED: MAGNESIUM SULFATE 20 GM/500 ML 500 ML IV SCH (08:30)
[2018-12-24] MEDS ORDERED: TERBUTALINE 1 MG/ML INJ SC PRN (11:00)
[2018-12-24] MEDS ORDERED: TERBUTALINE 1 ML ONE (11:05)
[2018-12-24] MEDS ORDERED: MAGNESIUM SULFATE 4 GM/100 ML 100 ML ONE (11:05)
[2018-12-24] MEDS ORDERED: BUTORPHANOL 2 MG INJ IV ONE (17:00)
[2018-12-24] MEDS ORDERED: AZITHROMYCIN 500MG/NS (PMX) 250 ML IV SCH ×2 (17:00→19:00)
--- NOTE | 2018-12-24 17:20 | RADRPT ---
Vent Rate: 72 bpm RR Interval: 828 msec MO Interval: 163 msec QRS Duration: 93 msec QT Interval: 382 msec QTC Interval: 420 msec P-R-T [place]: 35 - -18 - 16 degrees Sinus rhythm...normal P axis, V-rate 50- 99 Borderline left axis deviation...QRS axis (-15,-29) Electronically Signed By: Reddy Peters
[2018-12-24] MEDS ORDERED: CEFAZOLIN 2 GM/50 ML (PMX) 50 ML IVPB SCH (17:30)
--- NOTE | 2018-12-24 19:24 | PREAC ---
Date/Time of Note Date/Time of Note DATE: 12/24/18 TIME: 19:24 Anesthesia Eval and Record Evaluation Time Pre-Procedure Interview DATE: 12/24/18 TIME: 19:24 Age 33 Sex female NPO: 8 hrs Preoperative diagnosis twin gestation, previous Csection Planned procedure Repeat Csection Past Medical History Past Medical History: Includes GI: Morbid obesity Surgery & Anesthesia Issues Significant blood loss Meds Anticoagulation: No Beta Belkis within 24 hr: No Reason Beta Belkis not given: Pt. not on B-Belkis Reported Medications Calcium Carbonate* (Calcium Carbonate*) 600 MG Ca Tab, 600 MG PO DAILY, TAB 10/26/18 Vit No.124/Iron/FA ( Vitamin Tablet) 1 Each Tablet, 1 EACH PO DAILY, TAB 10/26/18 Current Medications Lactated Ringer's 1,000 ml @ 125 mls/hr Q8H IV Last administered on 12/24/18at 18:59; Admin Dose 125 MLS/HR; Start 12/24/18 at 05:11 Lidocaine (Xylocaine 1% (Mpf)) 30 ml ONCE PRN INJ .EPISIOTOMY; Start 12/24/18 at 05:30 Oxytocin/Lactated Ringer's 500 ml @ 500 mls/hr ONCE POST IV ; Start 12/24/18 at 05:30 Lactated Ringer's 1,000 ml @ 2,000 mls/hr Q30M PRN IV .ANESTHESIA; Start 12/24/18 at 05:11 Betamethasone Acet/Betameth SodPhos (Celestone Soluspan) 12 mg Q24H IM Last administered on 12/24/18at 06:33; Admin Dose 12 MG; Start 12/24/18 at 05:30; Stop 12/25/18 at 05:31 Cefazolin Sodium/ Dextrose 50 ml @ 100 mls/hr ONCE IVPB ; Start 12/24/18 at 1 7:30 Oxytocin/Lactated Ringer's 500 ml @ 125 mls/hr POST IV ; Start 12/24/18 at 17:30 Oxytocin/Lactated Ringer's 500 ml @ 0 mls/hr ONCE PRN IV .VAGINAL BLEEDING; Start 12/24/18 at 17:30 Methylergonovine Maleate (Methergine) 0.2 mg ONCE PRN IM .VAGINAL BLEEDING; Start 12/24/18 at 17:30 Carboprost Tromethamine (Hemabate) 250 mcg ONCE PRN IM .VAGINAL BLEEDING; Start 12/24/18 at 17:30 Misoprostol (Cytotec) 1,000 mcg ONCE PRN OR .VAGINAL BLEEDING; Start 12/24/18 at 17:30 Azithromycin 250 ml @ 250 mls/hr ONCE IV ; Start 12/24/18 at 19:00 Oxytocin/Lactated Ringer's 500 ml @ 0 mls/hr ONCE PRN IV .VAGINAL BLEEDING; Start 12/24/18 at 19:00 Methylergonovine Maleate (Methergine) 0.2 mg ONCE PRN IM .VAGINAL BLEEDING; Start 12/24/18 at 19:00 Carboprost Tromethamine (Hemabate) 250 mcg ONCE PRN IM .VAGINAL BLEEDING; Start 12/24/18 at 19:00 Misoprostol (Cytotec) 1,000 mcg ONCE PRN OR .VAGINAL BLEEDING; Start 12/24/18 at 19:00 Oxytocin/Lactated Ringer's 500 ml @ 0 mls/hr ONCE PRN IV .VAGINAL BLEEDING; Start 12/24/18 at 17:00 Methylergonovine Maleate (Methergine) 0.2 mg ONCE PRN IM .VAGINAL BLEEDING; Start 12/24/18 at 17:00 Carboprost Tromethamine (Hemabate) 250 mcg ONCE PRN IM .VAGINAL BLEEDING; Start 12/24/18 at 17:00 Misoprostol (Cytotec) 1,000 mcg ONCE PRN OR .VAGINAL BLEEDING; Start 12/24/18 at 17:00 Meds reviewed: Yes Allergies Uncoded Allergies: PORK,SALMON (Allergy, Severe, HIVES,RASH, 11/25/18) Allergies Reviewed: Yes Labs/Studies Labs Reviewed: Reviewed by anesthesiologist Result Diagram: 12/24/18 0552 12/24/18 0552 Laboratory Tests 12/24/18 05:52 Blood Bank Test 12/24/18 05:52 Antibody Screen NEGATIVE Blood Type A POSITIVE Rh Immune Globulin Candidate NO test: Positive Pre-procedure Exam Airway: Adequate mouth opening, Adequate thyromental dist Mallampati: Mallampati III Teeth: Normal Lung: Normal Heart: Normal ASA Physical Status ASA physical status: 3 Emergency: E Planned Anesthetic Neuraxial: Spinal Planned Pain Management Sub-arachniod narcotics, Parenteral pain med, Other neuraxial med Pre-operative Attestations Prior to commencing anesthesia and surgery, the patient was re-evaluated, there was verification of: *The patient's identity *The results of appropriate recent lab work and preoperative vital signs *The above evaluation not changing prior to induction *Anesthetic plan, risk benefits, alternative and complications discussed with patient/family; questions answered; patient/family understands, accepts and wishes to proceed. ANGEL LUIS FOX MD Dec 24, 2018 19:24
[2018-12-24] MEDS ORDERED: HYDROmorphONE 0.5 MG/0.5 ML SYG IV PRN ×2 (19:30)
[2018-12-24] MEDS ORDERED: NALOXONE (0.4 MG/ML) INJ IV PRN (19:30)
[2018-12-24] MEDS ORDERED: LEVALBUTEROL (NEB) 1.25 MG/0.5 ML AMP HHN PRN (19:30)
[2018-12-24] MEDS ORDERED: HYDROmorphONE 1 MG/5 ML IV SYRINGE IV PRN ×3 (19:30)
[2018-12-24] MEDS ORDERED: ONDANSETRON 4 MG INJ IV PRN ×2 (19:30)
[2018-12-24] MEDS ORDERED: KETOROLAC 30 MG INJ IV PRN (19:30)
[2018-12-24] MEDS ORDERED: ZOLPIDEM 5 MG TAB PO PRN (19:30)
[2018-12-24] MEDS ORDERED: DIPHENHYDRAMINE 50 MG INJ IV PRN ×2 (19:30)
[2018-12-24] MEDS ORDERED: FENTAnyl 50 MCG/ML VIAL IV PRN ×2 (19:30)
[2018-12-24] MEDS ORDERED: ONDANSETRON 4 MG INJ IV STA (19:33)
[2018-12-24] MEDS ORDERED: METOCLOPRAMIDE 10 MG INJ ONE (19:36)
[2018-12-24] MEDS ORDERED: FAMOTIDINE 20 MG INJ ONE (19:37)
[2018-12-24] MEDS ORDERED: OXYTOCIN 10 UNIT INJ ONE (19:41)
[2018-12-24] MEDS ORDERED: morphine SULFATE/PF (10 MG/10 ML) INJ ONE (19:41)
[2018-12-24] MEDS ORDERED: FAMOTIDINE 20 MG INJ IV ONE (20:00)
[2018-12-24] MEDS ORDERED: METOCLOPRAMIDE 10 MG INJ IV ONE (20:00)
--- NOTE | 2018-12-24 20:09 | PREOPHP ---
DATE OF ADMISSION: 12/24/2018 HISTORY OF PRESENT ILLNESS: This is a 33-year-old lady, 6, para 4 and with one set of twins. Her EDC is 01/23/2019, making her 35 and 5/7 weeks , admitted to labor and delivery area in labor. She had care at my [facility] office and the care was uneventful except she h ad been admitted to this hospital twice for labor. She received 2 doses of betamethasone in her last 2 admissions so she is known to be twins. She has dichorionic diamniotic twins. So she rec eive another dose of betamethasone today as it was not known that she had received 2 doses. Accordin g to her, she only received 1 dose, but she had received 2 doses on two admissions, so only 1 betamet hasone was given. She was given magnesium sulfate, but then since the betamethasone was not to be wa ited then the magnesium sulfate was discontinued. She was given IV hydration and that she was still having contractions every 2 to 3 minutes, and even though the patient feels them so because of contin ued labor then she was scheduled to have . She was advised to have by a pair yue ce of Dr. Hoang if she continued to be in labor. PAST PERSONAL HISTORY: No history of TB, asthma. ALLERGIES: NO ALLERGIES. SOCIAL HISTORY: The patient does not smoke. She does not drink. MEDICATIONS: She does not take any drugs except her iron and vitamins. GYNECOLOGICAL HISTORY: She had menarche at the age of 10, every 28 days interval, 3 to 4 days durati on, and moderate in moderate. FAMILY HISTORY: Mother has diabetes. OBSTETRICAL HISTORY: Her first delivery was in 2001, second in 2002, normal delivery. The third del raoul was in 2009 by for 1 set of twins. She had 2 spontaneous abortions in 2016 and 2017 for 2016 at 16 weeks and 2017 at 8 weeks. REVIEW OF SYSTEMS: CARDIOVASCULAR: No chest pains. RESPIRATORY: No cough. GASTROINTESTINAL: No diarrhea, no vomiting. GENITOURINARY: No dysuria. PHYSICAL EXAMINATION: GENERAL: Reveals a conscious, coherent lady and in no acute distress. VITAL SIGNS: Her blood pressure 120/70, pulse rate 80 per minute, respirations 16 per minute. BREASTS, HEART AND LUNGS: Within normal limits. ABDOMEN: Soft, fundic height 37 cm. heart tones 140 per minute. PELVIC: Done by nurse on admission revealed the cervix to be closed but done by me revealed the cerv ix to be 2 to 3 cm dilated at 7:30 p.m., station floating in cephalic presentation with the bag of wa ter intact. EXTREMITIES: No pedal edema. ADMITTING DIAGNOSIS: A 35 and 5/7 weeks intrauterine , twins and in labor. The patient was planned to have a repeat . The procedure was explained to her and she understood everythin g totally. The risks, benefits, and alternatives were discussed with her as well. Dictated By: MORENITA CAIN MD NS/NTS Conf#: [id number] DID#: [id number] CC: MORENITA CAIN MD;*End*
[2018-12-24] MEDS ORDERED: LACTATED RINGER'S 1,000 ML IV SCH (21:02)
--- NOTE | 2018-12-24 21:02 | OPPN ---
Date/Time of Note Date/Time of Note DATE: 12/24/18 TIME: 20:57 Operative Report Planned Procedure Procedure date Dec 24, 2018 Procedure(s) REPEAT CSECTION AND BTL Performed by see signature line City Secretary: RAYMOND BARR MD 2nd City Secretary none Pre-procedure diagnosis 35 5/7 TWIN PREVIOS CSECTION MULTIPARITY [id number] Anesthesia Type: [id number] spinal Post-Procedure Post-procedure diagnosis 35 5/7 TWIN PREVIOUS CSECTION MULTIPARITY Findings BABY A Live Baby GIRL , Apgars 8 and 9, weight 5LBS 3 OZ 2011 INCHES 2365 GRAMS BABY B KIVE BOY 8 AND 9 WEIGHT 5LBS 10OZ 2014 GRAMS Estimated Blood Loss: 500 - 600 mls Specimen(s) none Grafts/Implant(s) PLACENTA CORD GASES A&B BOTH TUBES Complication(s) none MORENITA CAIN MD Dec 24, 2018 21:02
[2018-12-24] MEDS ORDERED: IBUPROFEN 800 MG TAB PO PRN (21:30)
[2018-12-24] MEDS ORDERED: LANOLIN HPA 1 PKT TOP PRN (21:30)
[2018-12-24] MEDS ORDERED: METHYLERGONOVINE 0.2 MG TAB PO PRN (21:30)
--- NOTE | 2018-12-24 21:44 | PAC ---
Date/Time of Note Date/Time of Note DATE: 12/24/18 TIME: 21:44 Post-Anesthesia Notes Post-Anesthesia Note Activity: WNL Respiratory function: WNL Cardiovascular function: WNL Mental status: Baseline Pain reasonably controlled: Yes Hydration appropriate: Yes Nausea/Vomiting absent: Yes ANGEL LUIS FOX MD Dec 24, 2018 21:44
[2018-12-24] MEDS: KETOROLAC 30 MG INJ IV PRN (23:16)
[2018-12-25] VITALS: BP 108/59; PULSE 78; RESP 20
[2018-12-25] MEDS ORDERED: CARBOPROST 250 MCG INJ IM PRN (02:00)
[2018-12-25] MEDS ORDERED: ONDANSETRON 4 MG INJ IV PRN (02:00)
[2018-12-25] MEDS ORDERED: OXYTOCIN 30 UNITS/LR 500 ML IV PRN (02:00)
[2018-12-25] MEDS ORDERED: DIPHENHYDRAMINE 50 MG INJ IV PRN (02:00)
[2018-12-25] MEDS ORDERED: OXYTOCIN 30 UNITS/LR 500 ML IV SCH (02:00)
[2018-12-25] MEDS ORDERED: METHYLERGONOVINE 0.2 MG INJ IM PRN (02:00)
[2018-12-25] MEDS ORDERED: MISOPROSTOL 200 MCG TAB PR PRN ×2 (02:00)
[2018-12-25] MEDS ORDERED: LEVALBUTEROL (NEB) 1.25 MG/0.5 ML AMP HHN PRN (02:00)
[2018-12-25] MEDS ORDERED: KETOROLAC 30 MG INJ IV PRN (02:00)
[2018-12-25] MEDS: KETOROLAC 30 MG INJ IV PRN ×2 (05:39→18:04)
[2018-12-25 08:00] VITALS: BP 98/56; PULSE 68; RESP 17
[2018-12-25] MEDS: SENNA/DOCUSATE NA (8.6MG/50MG) TAB PO SCH ×2 (09:21→20:28)
[2018-12-25 12:30] VITALS: BP 103/57; PULSE 73; RESP 16
[2018-12-25 16:00] VITALS: BP 96/51; PULSE 66; RESP 16
[2018-12-25 20:10] VITALS: BP 97/54; PULSE 96; RESP 19
[2018-12-25] MEDS: HYDROCODONE/APAP (5/325) TAB PO PRN (22:34)
[2018-12-26] MEDS: HYDROCODONE/APAP (5/325) TAB PO PRN ×3 (03:58→22:38)
[2018-12-26 04:20] VITALS: BP 117/65; PULSE 64; RESP 19
[2018-12-26] MEDS: IBUPROFEN 800 MG TAB PO PRN ×2 (05:39→15:01)
[2018-12-26 08:31] VITALS: BP_SYST 100; BP_SYST 107; BP_DIAS 62; BP_DIAS 67; PULSE 68; PULSE 78; RESP 18
[2018-12-26] MEDS ORDERED: BISACODYL 10 MG SUPP PR ONE (10:00)
[2018-12-26] MEDS: MAGNESIUM HYDROXIDE 30ML CUP PO PRN (10:12)
[2018-12-26] MEDS: SENNA/DOCUSATE NA (8.6MG/50MG) TAB PO SCH ×2 (10:12→22:33)
[2018-12-26] MEDS ORDERED: DIPHTH/TET/ACEL PERTUSS (ADULT) 0.5 ML VIAL IM* ONE (14:00)
[2018-12-26 15:56] VITALS: BP 99/66; PULSE 72; RESP 16
--- NOTE | 2018-12-26 15:57 | PN ---
Date/Time of Note Date/Time of Note DATE: 12/25/18 TIME: 15:55 Assessment/Plan VTE Prophylaxis Risk score (from Nsg)>0 risk: 1 SCD applied (from Ns): No SCD contraindicated: low risk/ambulating Pharmacological prophylaxis: NA/contraindicated Pharm contraindication: low risk/ambulating Lines/Catheters IV Catheter Type (from Nrsg): Peripheral IV Assessment/Plan Assessment/Plan POSTCSECTION DAY 1 CHRONIC IRON DEFICIENCY ANEMIA ORDERED ADVANCE DIET TOLERATED CBC ON 3RD POSTOP DAY Result Diagram: 12/25/18 0835 12/25/18 0835 Subjective 24 Hr Interval Summary Free Text/Dictation POST CSECTION DAY 1 COMPLAIN OF INCISIONAL PAINS GOOD URINE OUTPUT PASSING GAS PER RECTUM NO BOWEL MOVEMENT YET Exam/Review of Systems Exam Vitals Vital Signs Date Temp Pulse Resp B/P (MAP) Pulse Ox O2 O2 Flow FiO2 Time Delivery Rate 12/26/18 99.4 68 18 107/62 Room Air 08:31 (77) 12/25/18 96 20:10 Intake and Output 12/25/18 12/25/18 12/26/18 1515:00 23:00 07:00 IntakeIntake Total 1575 ml 1050 ml 0 ml OutputOutput Total 1600 ml 1400 ml 500 ml BalanceBalance -25 ml -350 ml -500 ml Exam VITAL SIGNS STABLE: YES AFEBRILE: YES BREAST NOT ENGORGED, NON-TENDER, NO APPRECIABLE MASS: YES LUNGS CLEAR, NO RALES, WHEEZES, RHONCHI: YES SINUS RHYTHM WITHOUT MURMUR: YES ABDOMEN: NON-TENDER FUNDUS: BELOW UMBILICUS BOWEL SOUNDS: PRESENT UTERUS: FIRM INCISION (CLEAN, DRY, AND INTACT): YES LOCHIA: LIGHT DEEP TENDON REFLEXES: 0 EXTREMITIES: NO CALF TENDERNESS EDEMA SCALE: NONE Medications Medication Current Medications Lidocaine (Xylocaine 1% (Mpf)) 30 ml ONCE PRN INJ .EPISIOTOMY; Start 12/24/18 at 05:30 Methylergonovine Maleate (Methergine) 0.2 mg Q6H PRN PO .VAGINAL BLEEDING; Start 12/24/18 at 21:30 Acetaminophen/ Hydrocodone Bitart ([place] (5/325)) 1 tab Q4H PRN PO MODERATE PAIN LEVEL 4-6; Start 12/24/18 at 21:30 Acetaminophen/ Hydrocodone Bitart ([place] (5/325)) 2 tab Q4H PRN PO SEVERE PAIN LEVEL 7-10 Last administered on 12/26/18 03:58; Admin Dose 2 TAB; Start 12/24/18 at 21:30 Simethicone (Mylicon) 160 mg Q8H PRN PO .GAS Last administered on 12/25/18at 20:41; Admin Dose 160 MG; Start 12/24/18 at 21:30 Senna/Docusate Sodium (Senokot-S) 1 tab BID PO Last administered on 12/26/18at 10:12; Admin Dose 1 TAB; Start 12/25/18 at 09:00 Lanolin (Lanolin Hpa) 1 applic BEDSIDE MEDICATION PRN TOP .NIPPLES; Start 12/24/18 at 21:30 Measles/Mumps/ Rubella Vaccine Live (Mmr Ii Vaccine) 0.5 ml ONCE ONCE SC* Last administered on 12/26/18at 15:29; Admin Dose 0.5 ML; Start 12/26/18 at 16:00; Stop 12/26/18 at 16:01 Oxytocin/Lactated Ringer's 500 ml @ 0 mls/hr ONCE PRN IV .VAGINAL BLEEDING; Start 12/24/18 at 21:30 Methylergonovine Maleate (Methergine) 0.2 mg ONCE PRN IM .VAGINAL BLEEDING; Start 12/24/18 at 21:30 Carboprost Tromethamine (Hemabate) 250 mcg ONCE PRN IM .VAGINAL BLEEDING; Start 12/24/18 at 21:30 Misoprostol (Cytotec) 1,000 mcg ONCE PRN ND .VAGINAL BLEEDING; Start 12/24/18 at 21:30 Ibuprofen (Motrin) 800 mg Q8 PRN PO MILD PAIN LEVEL 1-3 Last administered on 12/26/18at 15:01; Admin Dose 800 MG; Start 12/25/18 at 21:00 Methylergonovine Maleate (Methergine) 0.2 mg ONCE PRN IM .VAGINAL BLEEDING; Start 12/25/18 at 02:00 Carboprost Tromethamine (Hemabate) 250 mcg ONCE PRN IM .VAGINAL BLEEDING; Start 12/25/18 at 02:00 Misoprostol (Cytotec) 1,000 mcg ONCE PRN ND .VAGINAL BLEEDING; Start 12/25/18 at 02:00 Misoprostol (Cytotec) 1,000 mcg ONCE PRN ND .VAGINAL BLEEDING; Start 12/25/18 at 02:00; Stop 12/28/19 at 19:36 Ketorolac Tromethamine (Toradol) 30 mg PACU ORDER PRN IV FOR PAIN AFTER IV NARCOTIC MED; Start 12/25/18 at 02:00; Stop 12/26/19 at 23:59 Ondansetron HCl (Zofran Inj) 4 mg PACU ORDER PRN IV NAUSEA/VOMITING; Start 12/25/18 at 02:00; Stop 12/28/19 at 23:59 Levalbuterol (Xopenex Neb) 1.25 mg PACU ORDER PRN HHN .WHEEZING; Start 12/25/18 at 02:00; Stop 12/28/19 at 23:59 Magnesium Hydroxide (Milk Of Mag) 30 ml BID PRN PO CONSTIPATION Last administered on 12/26/18at 10:12; Admin Dose 30 ML; Start 12/26/18 at 09:00 Bisacodyl (Dulcolax Supp) 10 mg ONCE PRN ND CONSTIPATION; Start 12/26/18 at 18:00; Stop 12/26/18 at 19:30 MORENITA CAIN MD Dec 26, 2018 15:57
--- NOTE | 2018-12-26 15:58 | PN ---
Date/Time of Note Date/Time of Note DATE: 12/26/18 TIME: 15:57 Assessment/Plan VTE Prophylaxis Risk score (from Nsg)>0 risk: 1 SCD applied (from Nsg): No SCD contraindicated: low risk/ambulating Pharmacological prophylaxis: NA/contraindicated Pharm contraindication: low risk/ambulating Lines/Catheters IV Catheter Type (from Nrsg): Peripheral IV Assessment/Plan Assessment/Plan POST CSECTION DAY 2 CHRONIC IRON DEFIENCY ANEMIA MOM AND DULCOLAX SUPPOSITORY HOME TOMORROW CBC TOMORROW COUNSELED INSTRUCTED PRESCRIPTION GIVEN FOR PAIN RETURN TO CLINIC IN 2 WEEKS CALL OFFICE IF THERE IS ANY PROBLEM OR CONCERN CONTINUE WITH VITAMINS OD AND FERROUS SULFATE 325MG PO TID DIET ADVISED Result Diagram: 12/25/18 0835 12/25/18 0835 Subjective 24 Hr Interval Summary Free Text/Dictation POST CSECTION DAY 2 NO BOWEL MOVEMENT GOOD URINE OUTPUT FEELS LESS INCISIONAL PAINS Exam/Review of Systems Exam Vitals Vital Signs Date Temp Pulse Resp B/P (MAP) Pulse Ox O2 O2 Flow FiO2 Time Delivery Rate 12/26/18 99.4 68 18 107/62 Room Air 08:31 (77) 12/25/18 96 20:10 Intake and Output 12/25/18 12/25/18 12/26/18 1515:00 23:00 07:00 IntakeIntake Total 1575 ml 1050 ml 0 ml OutputOutput Total 1600 ml 1400 ml 500 ml BalanceBalance -25 ml -350 ml -500 ml Exam VITAL SIGNS STABLE: YES AFEBRILE: YES BREAST NOT ENGORGED, NON-TENDER, NO APPRECIABLE MASS: YES LUNGS CLEAR, NO RALES, WHEEZES, RHONCHI: YES SINUS RHYTHM WITHOUT MURMUR: YES ABDOMEN: NON-TENDER FUNDUS: BELOW UMBILICUS BOWEL SOUNDS: PRESENT UTERUS: FIRM INCISION (CLEAN, DRY, AND INTACT): YES LOCHIA: LIGHT DEEP TENDON REFLEXES: 0 EXTREMITIES: NO CALF TENDERNESS EDEMA SCALE: NONE Medications Medication Current Medications Lidocaine (Xylocaine 1% (Mpf)) 30 ml ONCE PRN INJ .EPISIOTOMY; Start 12/24/18 at 05:30 Methylergonovine Maleate (Methergine) 0.2 mg Q6H PRN PO .VAGINAL BLEEDING; Start 12/24/18 at 21:30 Acetaminophen/ Hydrocodone Bitart ([place] (5/325)) 1 tab Q4H PRN PO MODERATE PAIN LEVEL 4-6; Start 12/24/18 at 21:30 Acetaminophen/ Hydrocodone Bitart ([place] (5/325)) 2 tab Q4H PRN PO SEVERE PAIN LEVEL 7-10 Last administered on 12/26/18 03:58; Admin Dose 2 TAB; Start 12/08 03/27 at 21:30 Simethicone (Mylicon) 160 mg Q8H PRN PO .GAS Last administered on 12/25/18 20:41; Admin Dose 160 MG; Start 12/24/18 at 21:30 Senna/Docusate Sodium (Senokot-S) 1 tab BID PO Last administered on 12/26/18 10:12; Admin Dose 1 TAB; Start 12/25/18 at 09:00 Lanolin (Lanolin Hpa) 1 applic BEDSIDE MEDICATION PRN TOP .NIPPLES; Start 12/24/18 at 21:30 Measles/Mumps/ Rubella Vaccine Live (Mmr Ii Vaccine) 0.5 ml ONCE ONCE SC* Last administered on 12/26/18 15:29; Admin Dose 0.5 ML; Start 12/26/18 at 16:00; Stop 12/26/18 at 16:01 Oxytocin/Lactated Ringer's 500 ml @ 0 mls/hr ONCE PRN IV .VAGINAL BLEEDING; Start 12/24/18 at 21:30 Methylergonovine Maleate (Methergine) 0.2 mg ONCE PRN IM .VAGINAL BLEEDING; Start 12/24/18 at 21:30 Carboprost Tromethamine (Hemabate) 250 mcg ONCE PRN IM .VAGINAL BLEEDING; Start 12/24/18 at 21:30 Misoprostol (Cytotec) 1,000 mcg ONCE PRN MT .VAGINAL BLEEDING; Start 12/24/18 at 21:30 Ibuprofen (Motrin) 800 mg Q8 PRN PO MILD PAIN LEVEL 1-3 Last administered on 12/26/18 15:01; Admin Dose 800 MG; Start 12/25/18 at 21:00 Methylergonovine Maleate (Methergine) 0.2 mg ONCE PRN IM .VAGINAL BLEEDING; Start 12/25/18 at 02:00 Carboprost Tromethamine (Hemabate) 250 mcg ONCE PRN IM .VAGINAL BLEEDING; Start 12/25/18 at 02:00 Misoprostol (Cytotec) 1,000 mcg ONCE PRN MT .VAGINAL BLEEDING; Start 12/25/18 at 02:00 Misoprostol (Cytotec) 1,000 mcg ONCE PRN MT .VAGINAL BLEEDING; Start 12/25/18 at 02:00; Stop 12/28/19 at 19:36 Ketorolac Tromethamine (Toradol) 30 mg PACU ORDER PRN IV FOR PAIN AFTER IV NARCOTIC MED; Start 12/25/18 at 02:00; Stop 12/26/19 at 23:59 Ondansetron HCl (Zofran Inj) 4 mg PACU ORDER PRN IV NAUSEA/VOMITING; Start 12/25/18 at 02:00; Stop 12/28/19 at 23:59 Levalbuterol (Xopenex Neb) 1.25 mg PACU ORDER PRN HHN .WHEEZING; Start 12/25/18 at 02:00; Stop 12/28/19 at 23:59 Magnesium Hydroxide (Milk Of Mag) 30 ml BID PRN PO CONSTIPATION Last ad ministered on 12/26/18at 10:12; Admin Dose 30 ML; Start 12/26/18 at 09:00 Bisacodyl (Dulcolax Supp) 10 mg ONCE PRN MT CONSTIPATION; Start 12/26/18 at 18:00; Stop 12/26/18 at 19:30 MORENITA CAIN MD Dec 26, 2018 15:58
[2018-12-26] MEDS ORDERED: MEASLES,MUMPS,RUBELLA VACCINE INJ SC* ONE (16:00)
[2018-12-26] MEDS ORDERED: BISACODYL 10 MG SUPP PR PRN (18:00)
--- NOTE | 2018-12-26 19:36 | OPR ---
DATE OF OPERATION: 12/24/2018 PREOPERATIVE DIAGNOSES: 1. A 35 and 5/7 weeks' intrauterine in labor, twin . 2. Previous section. 3. Multiparity. 4. Desires sterilization. POSTOPERATIVE DIAGNOSES: 1. A 35 and 5/7 weeks' intrauterine in labor, twin . 2. Previous section. 3. Multiparity. 4. Desires sterilization. OPERATIONS PERFORMED: Repeat low transverse section plus bilateral tubal ligation and trans ection and delivery of twin . SURGEON: Natali Woodward MD SCHOOL OCCUPATIONAL THERAPIST: Geno Rubio MD ANESTHESIA: Spinal. ANESTHESIOLOGIST: Dr. Valdez. OPERATIVE TECHNIQUE: Under spinal anesthesia, the patient was prepped and draped in the usual fashio n for abdominal surgery. After checking for the effect of the anesthesia, the previous Pfannenstiel scar was excised. A 12 cm skin incision was performed. The incision was carried from the skin up to the fascia. Upon opening the skin up to the fascia, small blood vessels were noted to be oozing and these were all cauterized. Fascia was opened transversely followed by splitting the muscles vertica lly and the peritoneum vertically. Upon opening the abdominal cavity, the bladder blade was put in p lace. A small coco was performed from the serosa up to the endometrium on the lower uterine segment. Then the coco was carried sidewise with the aid of my 2 fingers. My left hand was inserted in the lower segment of the uterus and the bag of water was ruptured. Baby's head was delivered and baby's airways were quickly suctioned with amniotic fluid. There was 1 loop of cord around the baby's neck that needs to be released prior to the delivery of the rest of the body of the baby. Baby's airways were quickly suctioned with amniotic fluid. Cord was clamped and baby was handed to the NICU teams. Cord segment was obtained for blood gases. Then, cord blood was obtained. Then the bag of water wa s ruptured on the second baby. Baby's head was delivered with good fundal pressure. Baby's airways were quickly suctioned with amniotic fluid. Then, the anterior shoulder and the posterior shoulder a nd rest of the body of the baby was delivered. The baby's airways were quickly suctioned with amniot ic fluid. Cord was clamped and baby was handed to the NICU team. Cord segment was obtained for bloo d gases and then cord blood was obtained. The placenta was delivered manually and complete. The to[place] gricelda was exteriorized. The uterus was cleansed with wet lap sponge to make sure that no membran es were left behind. After correct sponge count, the uterus was closed in the usual fashion using #1 chromic for the first layer, continuous locking suture was used followed by #1 chromic for the secon d layer, imbricating sutures were used. Bleeders were checked and there was no bleeding noted. Afte r checking for any bleeders in which there were none, then the right tube was grasped on the center w here the avascular area was. A 1 cm tube was stick tied at the proximal and distal portions with 2-0 silk stick tie with 2-0 chromic above the first silk tie and another free tie with 2-0 chromic above the second tie. The right tube was cut and the cut ends were cauterized. The fimbria was identifie d. Same thing was done on the left side, 1 cm tube was transected as well. The left fimbria was ligia ntified. Both ovaries were identified. They were healthy looking. The broad ligaments were checked at the back of the uterus for any hematoma and there was none noted. Then the uterus was put back t o the pelvic cavity. Once again, uterine incision was checked for any bleeders and there was no blee ding noted. After correct sponge count, needle count and instrument count as confirmed by the electrical assembly technician and cnc applications engineer, the abdomen was closed in the usual fashion using 0 Vicryl for the peritoneum, 0 Vicryl for the muscles, for the fascia 0 Vicryl continuous stitch was used followed by few figure-of -eight sutures. For the subcutaneous tissue, it was closed with 3-0 Vicryl and the skin was closed w ith 3-0 Vicryl, subcuticular suture was used. The patient tolerated the procedure well. Estimated b lood loss was about 600 mL. Vital signs were stable during and after the procedure. The baby A was girl, 8 and 9, delivered at 20:11, weighing 5 pounds and 3 ounces, 2365 grams, 18.5 inches long . Twin B is baby boy delivered at 20:14, 8 and 9, weighing 5 pounds and 10 ounces, 2560 grams, 18 inches long. Dictated By: NATALI DARDEN/EDIS Conf#: [id number] DID#: [id number]
[2018-12-26 20:24] VITALS: BP 121/74; PULSE 74; RESP 18
[2018-12-26 23:00] VITALS: BP 121/70; PULSE 71; RESP 18
[2018-12-27 00:06] VITALS: BP 110/68; PULSE 60; RESP 18
[2018-12-27 05:07] VITALS: BP 111/71; PULSE 73; RESP 18
[2018-12-27] MEDS: HYDROCODONE/APAP (5/325) TAB PO PRN ×2 (05:07→14:24)
[2018-12-27 08:00] VITALS: BP 118/69; PULSE 70; RESP 18
[2018-12-27] MEDS: SENNA/DOCUSATE NA (8.6MG/50MG) TAB PO SCH ×2 (13:30→21:43)
[2018-12-27] MEDS: IBUPROFEN 800 MG TAB PO PRN ×2 (13:34→21:43)
[2018-12-27 15:30] VITALS: BP 110/76; PULSE 69; RESP 17
[2018-12-27 20:00] VITALS: BP 103/60; PULSE 65; RESP 18
[2018-12-27] MEDS: MAGNESIUM HYDROXIDE 30ML CUP PO PRN (21:46)
[2018-12-28 04:00] VITALS: BP 120/64; PULSE 74; RESP 18
[2018-12-28 08:33] VITALS: BP 121/72; PULSE 69; RESP 18
[2018-12-28] MEDS: HYDROCODONE/APAP (5/325) TAB PO PRN (08:33)
[2018-12-28] MEDS: SENNA/DOCUSATE NA (8.6MG/50MG) TAB PO SCH (08:33)
--- NOTE | 2018-12-29 16:19 | DELSUM ---
Delivery Summary A-C Datetime Report Generated by N: 12/29/2018 16:19 DELIVERY PERSONNEL Machine Hostler: Natalia Barahonae MATERNAL INFORMATION Delivery Anesthesia: Spinal Medications in Delivery: SEE ANESTHESIA RECORD Delivery QBL (ml): 600 Placenta Cultured: No Maternal Complications: None LABOR SUMMARY EDC: 01/23/2019 00:00 No. Babies in Womb: 2 Attempted: No Labor Anesthesia: None (Annotations: Data stored by [facility] on behalf of user) LABOR INFORMATION Reason for Induction: Not Applicable Onset of Labor: 12/24/2018 00:30 Other Ripening Agents: N/A Oxytocin: N/A Group B Beta Strep: Negative Antibiotics # of Doses: 2 (zithro _ ancef) Antibiotics Time of Last Dose: 12/24/2018 19:55 Steroids Given: Full Course; <24Hrs before Delivery Reason Steroids Not Administered: Not Applicable Other Reason Not Administered: given 10/26, 11/19, 12/24 MEMBRANES Membranes Rupture Method: Artificial Rupture of Membranes: 12/24/2018 20:10 Length of Rupture (hr): 0.02 Amniotic Fluid Color: Clear Amniotic Fluid Amount: Moderate Amniotic Fluid Odor: Normal STAGES OF LABOR Stage 3 hr: 0 Stage 3 min: 4 Total Time in Labor hr: 19 Total Time in Labor min: 45 CSECTION DELIVERY Primary Indication: N/A Secondary Indication: Multiple Gestation CSection Urgency: Elective CSection Incidence: Repeat Labor: Labor Elective: Elective CSection Incision: Lower Uterine Transverse Sterilization Procedure: [place] BABY A INFORMATION Infant Delivery Date/Time: 12/24/2018 20:11 Method of Delivery: Born in Route : No : N/A Forceps: N/A Vacuum Extraction: N/A Shoulder Dystocia : N/A SHOULDER DYSTOCIA BABY A Infant Delivery Date/Time: 12/24/2018 20:11 PRESENTATION/POSITION BABY A Presentation: Cephalic Cephalic Presentation: Vertex Vertex Position: Left Occipital Anterior Breech Presentation: N/A PLACENTA INFORMATION BABY A Placenta Delivery Time : 12/24/2018 20:15 Placenta Method of Delivery: Manual Removal Placenta Status: Delivered SCORES BABY A Heart Rate 1 min: >100 bpm Resp Effort 1 min: Good Cry Reflex Irritability 1 min: Cough/Sneeze/Pulls Away Muscle Tone 1 min: Active Motion Color 1 min: Blue/Pale Resuscitation Effort 1 min: Tactile Stimulation SCORE 1 MIN: 8 Heart Rate 5 min: >100 bpm Resp Effort 5 min: Good Cry Reflex Irritability 5 min: Cough/Sneeze/Pulls Away Muscle Tone 5 min: Active Motion Color 5 min: Body [place], Extremit Blue Resuscitation Effort 5 min: Tactile Stimulation SCORE 5 MIN: 9 INFORMATION BABY A Gestational Age at Delivery: 35.5 Gestational Status: Late - 34- 36.6 Weeks Infant Outcome : Liveborn Condition : Stable Infant Sex: Female IDENTIFICATION/MEDS BABY A ID Band Number: [id number] ID Band Location: Right Leg; Left Arm Sensor Applied: Yes Sensor Number: [id number] Sensor Location : Cord Clamp Vitamin K Given : Not Given Erythromycin Given: Not Given WEIGHT/LENGTH BABY A Infant Birthweight (gm): 2365 Infant Weight (lb): 5 Infant Weight (oz): 3 Infant Length (in): 18.50 Infant Length (cm): 46.99 CORD INFORMATION BABY A No. Cord Vessels: 3 Nuchal Cord : N/A Nuchal Cord- Other: 0 True Knot: 1 Cord Blood Taken: Yes Banking/Donate Info: No Suction: Mouth; Nose ASSESSMENT BABY A Infant Complications: None Physical Findings at Delivery: Within Normal Limits Respirations: Appears Normal Watch Crystal Grinder/ALS Called : Yes Infant Care By: Tereso Yin RN, Roderick Hdez RT, Agustin Burris RT, Transferred To: Remains with Mother BABY B INFORMATION Infant Delivery Date/Time: 12/24/2018 20:14 Method of Delivery : Born in Route : No : N/A Forceps : N/A Vacuum Extraction: N/A Shoulder Dystocia : N/A SHOULDER DYSTOCIA BABY B Infant Delivery Date/Time: 12/24/2018 20:14 PRESENTATION/POSITION BABY B Presentation : Cephalic Cephalic Position : Vertex Vertex Position: Right Occipital Anterior Breech Position: N/A ROM/PLACENTA INFO BABY B Rupture of Membranes: 12/24/2018 20:13 Length of Rupture (hr): 0.02 Placenta Delivery Time : 12/24/2018 20:15 Placenta Method of Delivery: Manual Removal Placental Status : Delivered SCORES BABY B Heart Rate 1 min: >100 bpm Resp Effort 1 min: Good Cry Reflex Irritability 1 min: Cough/Sneeze/Pulls Away Muscle Tone 1 min: Active Motion Color 1 min: Blue/Pale Resuscitation Effort 1 min: Tactile Stimulation SCORE 1 MIN: 8 Heart Rate 5 min: >100 bpm Resp Effort 5 min: Good Cry Reflex Irritability 5 min: Cough/Sneeze/Pulls Away Muscle Tone 5 min: Active Motion Color 5 min: Body [place], Extremit Blue Resuscitation Effort 5 min: Tactile Stimulation SCORE 5 MIN: 9 INFANT INFORMATION BABY B Gestational Age at Delivery: 35.5 Gestational Status : Late - 34- 36.6 Weeks Outcome : Liveborn Infant Condition : Stable Infant Sex : Male IDENTIFICATION/MEDS BABY B ID Band Number : [id number] ID Band Location : Right Leg; Left Arm Sensor Applied: Yes Sensor Number : [id number] Sensor Location : Cord Clamp Vitamin K Given : Not Given Erythromycin Given : Not Given WEIGHT/LENGTH BABY B Birthweight (gm): 2560 Weight (lb) : 5 Weight (oz): 10 Length (in): 18.00 Infant Length (cm): 45.72 CORD INFORMATION BABY B No. Cord Vessels : 3 Nuchal Cord : N/A Nuchal Cord- Other: 0 True Knot : 0 Cord Blood Taken : Yes Banking/Donate Info : No Suction : Mouth; Nose ASSESSMENT BABY B Infant Complications : None Physical Findings at Delivery: Within Normal Limits Respirations : Appears Normal Watch Crystal Grinder/ALS Called : No Care By : Tereso Yin RN, Roderick Hdez RT, Agustin Burris RT, Transfer To: Remains with Mother
== END 2018-12-28 16:18 | disposition home or self-care (01) | DRG 785 ==
LOC: OBT 04:30 → L-D 04:30 → OBT 05:14 → L-D 19:48 → PP1 23:47
PROVIDERS: ADMIT Obstetrics & Gynecology; ATTEND Obstetrics & Gynecology
PROC: 0UB70ZZ Excision of Bilateral Fallopian Tubes, Open Approach (ICD-10-PCS; 2018-12-24)
PROC: 10D00Z1 Extraction of Products of Conception, Low, Open Approach (ICD-10-PCS; principal; 2018-12-24 19:30)
DX: O30.043 Twin pregnancy, dichorionic/diamniotic, third trimester (principal); O69.81X1 Labor and delivery complicated by cord around neck, without compression, fetus 1; O34.219 Maternal care for unspecified type scar from previous cesarean delivery; O99.214 Obesity complicating childbirth; E66.01 Morbid (severe) obesity due to excess calories; O99.02 Anemia complicating childbirth; D50.9 Iron deficiency anemia, unspecified; G89.18 Other acute postprocedural pain; Z37.2 Twins, both liveborn; Z3A.35 35 weeks gestation of pregnancy; Z30.2 Encounter for sterilization; Z23 Encounter for immunization
CPT/HCPCS: 36415; 36600; 76815; 76818; 80048; 80053; 82803; 85025; 85610; 85730; 86592; 86850; 86900; 86901; 87340; 88302; 88307; 93005; 99464; G0463; J0456; J0595; J0690; J0702; J1885; J2274; J2405; J2590; J2765; J3105; J3475; J7120